=== PATIENT | male | born 1955 | race Caucasian/White ===

== ENCOUNTER 2023-05-05 08:15 | Emergency (ER) | payer MEDICARE, SELFPAY ==
--- NOTE | 2023-05-05 08:18 | W.ED.GENADLT ---
HPI - General Adult General: Chief complaint: General Medical Stated complaint: diabetic, bg issues Time Seen by Provider: 05/05/23 08:17 History of Present Illness: Mr. Amaro is a 68-year-old gentleman with history of type 2 diabetes on Humalog and Levemir presented to the emergency department for diabetic concern. He is not from this area and typically wears a Dexcom which helps him monitor his blood glucose normally. He forgot his Dexcom when coming to visit his mother and has had concerned about his blood sugar. He notes probably an episode of low blood sugar yesterday where he felt weak and fell in the bathroom. No head strike or loss of consciousness. No continued pain associated with that. He did buy a glucometer and is unsure of how this works. Denies other significant changes in health. No increased thirst, increased urination, increased hunger. No other specific changes in health, exacerbating, or alleviating factors identified. Review of Systems General: Reports: 10 or more systems reviewed and unremarkable except in HPI and below PFSH ED PFSH: Medical History Diabetes Physical Exam Const: COMMON NORMALS: alert GENERAL APPEARANCE: cooperative and well developed HENMT: COMMON NORMALS: normocephalic and atraumatic HEAD & SCALP: normocephalic and atraumatic Eye: COMMON NORMALS: conjunctivae normal CONJUNCTIVA: Yes conjunctivae normal SCLERA: sclerae normal Neck/C-Spine: COMMON NORMALS: supple GENERAL: Yes trachea midline Resp: COMMON NORMALS: normal respiratory effort EFFORT & INSPECTION: Yes able to speak in complete sentences Cardio: COMMON NORMALS: regular rate and regular rhythm RATE: regular rate RHYTHM: regular rhythm Extremity: GENERAL: Yes normal exam except as noted and No edema Neuro: COMMON NORMALS: moves all extremities SENSORIUM/ORIENTATION: Yes alert and No Orientation impaired Course Vital Signs: Vital signs: Vital Signs Pulse Rate 78 05/05/23 08:49 Respiratory Rate 16 05/05/23 08:49 Blood Pressure 142/71 05/05/23 08:49 Pulse Oximetry 98 05/05/23 08:49 Oxygen Delivery Me thod Room Air 05/05/23 08:23 MDM - General Adult Medical Decision Making 68-year-old gentleman presenting for diabetic concern. Clinical exam patient is well-appearing. He does not describe symptoms of metabolic stress related to diabetes. Jugps-he-zods glucose testing 221. We provided teaching instruction with regards to patient's new glucometer. He plans to have a Dexcom sent to him since he will be down here for a few weeks and should have that within the next day or 2. The results of ED evaluation were discussed with the patient including prescriptions and/or symptomatic cares (if applicable) including appropriate and responsible use, followup plan, and return precautions. The patient verbalized understanding and felt safe for discharge. Medical Records I reviewed the patient's medical records. Lab Data I reviewed the patient's lab results. Laboratory Results POC Glucose 221 mg/dL (70-110) H 05/05/23 08:28 Discharge Plan Discharge Patient Disposition: Home Clinical Impression: Diabetes Condition: Stable Prescriptions: No Action cefdinir 300 mg capsule 300 mg PO BID Qty: 14 0RF Discharge Orders: Discharge ED (Routine); Ordered 05/05/23 Ordered By: Edgar Hall Discharge Diet: Usual diet Discharge Activity: Resume usual activity Patient Instructions: How to Check your Blood Sugar (ED), Type 2 Diabetes Management for Adults (ED) Activity Restrictions/Additional Instructions: Thank you for visiting the emergency department. You were seen and evaluated for diabetic concerns. Given ED evaluation I do not believe that you require hospitalization or further testing in the emergency department. Please continue to check your blood glucose and take your medication. Return to the emergency department for uncontrolled blood sugars, significantly increased thirst hunger and urination, fevers, or anything that you are concerned about and feel needs emergency department evaluation. Coding Level of Care Code ED Airborne Electronics Analyst for Katya Pickard
[2023-05-05 08:23] VITALS: BP 164/90; PULSE 93; RESP 15; O2SAT 95; BMI 27.9
[2023-05-05 08:30] LABS: Glucose Point of Care 221 mg/dL (70-110)
--- NOTE | 2023-05-05 08:40 | PC.NURSE ---
Pt was shown how to use his glucomuter, he demostrated back to me how to use it and said he feels comortable using it now
[2023-05-05 08:49] VITALS: BP 142/71; PULSE 78; RESP 16; O2SAT 98
--- NOTE | 2023-05-23 15:12 | DCPLANNER ---
late entry - patient called due to no primary care physician - patient already established with a provider
== END 2023-05-05 08:50 | disposition home or self-care (01) ==
PROVIDERS: Emergency Provider Emergency Medicine
DX: E11.9 Type 2 diabetes mellitus without complications (principal)
CPT/HCPCS: 36416; 82962; 99285

== ENCOUNTER 2023-05-11 18:11 | Emergency (ER) | payer MEDICARE, SELFPAY ==
[2023-05-11 18:13] VITALS: BP 185/99; PULSE 112; RESP 18; TEMP 36.8; O2SAT 100; BMI 28.8
[2023-05-11 18:29] LABS: Glucose Point of Care 113 mg/dL (70-110)
[2023-05-11] MEDS: sodium chloride 0.9% 1,000 ML 999 ML IV (18:53)
[2023-05-11 18:56] VITALS: BP 170/91; PULSE 97; RESP 16; O2SAT 98
[2023-05-11 19:20] LABS: Basophils # 0.1 10^3/uL (0.0-0.1); Basophils % 0.5 %; Eosinophils % 0.3 %; Hematocrit 45.9 % (42.0-52.0); Hemoglobin 14.7 g/dL (11.7-16.6); Lymphocytes # 0.6 10^3/uL (0.8-4.8); Lymphocytes % 5.7 %; Mean Corpuscular Hemoglobin 29.2 pg (28.0-34.0); Mean Corpuscular Volume 91.3 fl (80-94); Mean Platelet Volume 10.3 fL (7.4-10.4); Monocytes # 0.5 10^3/uL (0.2-0.9); Monocytes % 5.1 %; Neutrophils # 8.73 10^3/uL (1.8-7.7); Nucleated Red Blood Cells % 0 %; Platelet Count 233 10^3/cmm (130-400); Red Blood Count 5.03 10^6/uL (4.1-5.3); Red Cell Distribution Width 13.7 % (12.1-15.1); White Blood Count 9.9 10^3/uL (4.0-10.0)
[2023-05-11 19:21] LABS: Alanine Aminotransferase 32 U/L (0-41); Albumin Level 4.5 g/dL (3.5-5.2); Alkaline Phosphatase 75 U/L (40-130); Aspartate Amino Transferase 38 U/L (0-40); Blood Urea Nitrogen 15 mg/dL (8-23); Calcium 9.7 mg/dL (8.5-10.5); Carbon Dioxide 22 mmol/L (22-29); Chloride 104 mmol/L (98-107); Creatine Phosphokinase 98 U/L (39-308); Globulin 3.6 g/dL (1.3-4.6); Glomerular Filtration Rate 50.7 mL/min (90-130); Glucose 109 mg/dL (65-115); Osmolality Calculated 293 mOsm/kg (285-295); Sodium 141 mmol/L (136-145); Total Bilirubin 0.3 mg/dL (0.15-1.2); Total Protein 8.1 g/dL (6.6-8.7)
[2023-05-11 19:29] LABS: Anion Gap 18.9 (5-19); Creatinine Clr Calc Pharmacy 57.1154; Potassium 3.9 mmol/L (3.5-5.1)
[2023-05-11 19:32] LABS: Add Urine Microscopic? YES; Bilirubin Urine 1+ (Negative); Blood Urine Trace (Negative); Glucose Urine UA Trace (Normal); Ketones Urine 1+ (Negative); Leukocyte Esterase Urine 2+ (Negative); Nitrate Urine Negative (Negative); Protein Urine 3+ (Negative); Specific Gravity, Urine 1.025 (1.005-1.030); Urine Appearance Cloudy (CLEAR); Urine Color Yellow (Yellow); Urobilinogen Urine Norm (Negative); pH Urine 5 (5-7)
[2023-05-11 19:34] LABS: Bacteria Urine 3+ /hpf; RBC Urine 0-4 /hpf (0-2); Squamous Epithelial Cell Urine 0-4 /hpf (0-5); WBC Urine TOO NUMEROUS TO CNT /hpf (0-5)
[2023-05-11 19:35] LABS: Hyaline Casts Urine 0-4 /lpf
[2023-05-11 19:36] LABS: Add Urine Culture? Yes
[2023-05-11] MEDS: cefTRIAXone 1,000 MG in sodium chloride 0.9% (plus) 50 ML 100 MG IV (20:12)
--- NOTE | 2023-05-11 20:13 | PC.NURSE ---
Patient dexcom blood sugar machine, blood sugar reading is 186
[2023-05-11 20:44] VITALS: BP 187/108; PULSE 91; RESP 16; O2SAT 100
--- NOTE | 2023-05-12 15:44 | W.ED.AMS ---
HPI - Altered Mental Status General: Chief Complaint: Altered Mental Status Stated Complaint: AMS; HYPOGLYCEMIC Time Seen by Provider: 05/11/23 18:24 Source: patient History of Present Illness: 68 year old male diabetic. He was found to have significant acute mental status change, with diaphoresis. His blood sugar was low on EMS arrival. He received oral glucose treatment, and is much improved on his arrival. He does not know how his blood sugar got low. He does state that he has no electricity, and it is quite warm where he is staying. No other recent illness. MD complaint: altered mental status, confusion and decreased responsiveness Onset (ago): minute(s) Timing confirmed by: other Severity: moderate Context: diabetes Associated symptoms: Reports other Treatments prior to arrival: glucose Review of Systems Const: Denies: fever(s) Eyes: Denies: change in vision ENMT: Denies: throat pain Card: Denies: chest pain or palpitations Resp: Denies: dyspnea, productive cough or non-productive cough GI: Reports: nausea; Denies: abdominal pain or vomiting Skin/Breast: Denies: rash [facility] ED PFSH: Medical History Diabetes Physical Exam Const: COMMON NORMALS: no acute distress GENERAL APPEARANCE: cooperative ORIENTATION/CONSCIOUSNESS: Yes awake, Yes oriented to person, Yes oriented to place and Yes oriented to time HENMT: COMMON NORMALS: normocephalic and atraumatic HEAD & SCALP: normocephalic and atraumatic FACE & SINUS: normal facial exam Eye: COMMON NORMALS: Equal, round and reactive pupils present and EOMs intact bilaterally PUPIL: Yes Equal, round and reactive pupils present Neck/C-Spine: GENERAL: Yes trachea midline Chest: CHEST: Yes Symmetrical chest wall rise Resp: COMMON NORMALS: normal respiratory effort, No retractions, No use of accessory muscles and clear to auscultation bilaterally AUSCULTATION: clear to auscultation bilaterally Cardio: COMMON NORMALS: regular rate and regular rhythm RATE: regular rate RHYTHM: regular rhythm GI: COMMON NORMALS: Normal to inspection, nondistended, normoactive bowel sounds present Extremity: COMMON NORMALS: normal to inspection Neuro: LIZ COMA SCALE: document GCS findings Liz coma scale eye opening: Spontaneous [place] coma scale verbal response: Orientated Liz coma scale motor response: Obey commands [place] coma scale total score: 15 SENSORIUM/ORIENTATION: Yes oriented to person, Yes oriented to place and Yes oriented to time Course Vital Signs: Vital signs: Vital Signs Temperature 98.2 F 05/11/23 18:13 Pulse Rate 91 05/11/23 20:44 Respiratory Rate 16 05/11/23 20:44 Blood Pressure 187/108 05/11/23 20:44 Pulse Oximetry 100 05/11/23 20:44 Oxygen Delivery Me thod Room Air 05/11/23 18:13 MDM - Altered Mental Status Medical Decision Making The patient has a Dexcom, showing maintenance of his blood sugar level during his stay in the emergency department. Laboratory shows a creatinine of 1.4. It is otherwise not terribly remarkable. He does have a significant urinary tract infection however. This is treated with Iv rocephin, and we will continue as an outpatient with cefdinir. He is encouraged to maintain oral hydration, stay in a cool environment, and continue to check his blood sugar often. Lab Data 05/11/23 18:50 05/11/23 18:50 Laboratory Results WBC 9.9 10^3/uL (4.0-10.0) 05/11/23 18:50 RBC 5.03 10^6/uL (4.1-5.3) 05/11/23 18:50 Hgb 14.7 g/dL (11.7-16.6) 05/11/23 18:50 Hct 45.9 % (42.0-52.0) 05/11/23 18:50 MCV 91.3 fl (80-94) 05/11/23 18:50 MCH 29.2 pg (28.0-34.0) 05/11/23 18:50 MCHC 32.0 g/dL (30.0-36.0) 05/11/23 18:50 RDW 13.7 % (12.1-15.1) 05/11/23 18:50 Plt Count 233 10^3/cmm (130-400) 05/11/23 18:50 MPV 10.3 fL (7.4-10.4) 05/11/23 18:50 Neut % (Auto) 88.0 % 05/11/23 18:50 Lymph % (Auto) 5.7 % 05/11/23 18:50 [place] % (Auto) 5.1 % 05/11/23 18:50 Eos % (Auto) 0.3 % 05/11/23 18:50 Baso % (Auto) 0.5 % 05/11/23 18:50 Neut # (Auto) 8.73 10^3/uL (1.8-7.7) H 05/11/23 18:50 Lymph # (Auto) 0.6 10^3/uL (0.8-4.8) L 05/11/23 18:50 [place] # (Auto) 0.5 10^3/uL (0.2-0.9) 05/11/23 18:50 Eos # (Auto) 0.0 10^3/uL (0.0-0.8) 05/11/23 18:50 Baso # (Auto) 0.1 10^3/uL (0.0-0.1) 05/11/23 18:50 Nucleated RBC % (auto) 0 % 05/11/23 18:50 Nucleated RBCs # 0.0 /100WBC 05/11/23 18:50 Sodium 141 mmol/L (136-145) 05/11/23 18:50 Potassium 3.9 mmol/L (3.5-5.1) 05/11/23 18:50 Chloride 104 mmol/L (98-107) 05/11/23 18:50 Carbon Dioxide 22 mmol/L (22-29) 05/11/23 18:50 Anion Gap 18.9 (5-19) 05/11/23 18:50 BUN 15 mg/dL (8-23) 05/11/23 18:50 Creatinine 1.4 mg/dL (0.7-1.2) H 05/11/23 18:50 GFR Calculation 50.7 mL/min (90-130) L 05/11/23 18:50 Glucose 109 mg/dL (65-115) 05/11/23 18:50 POC Glucose 113 mg/dL (70-110) H 05/11/23 18:25 Calculated Osmolality 293 mOsm/kg (285-295) 05/11/23 18:50 Calcium 9.7 mg/dL (8.5-10.5) 05/11/23 18:50 Total Bilirubin 0.3 mg/dL (0.15-1.2) 05/11/23 18:50 AST 38 U/L (0-40) 05/11/23 18:50 ALT 32 U/L (0-41) 05/11/23 18:50 Alkaline Phosphatase 75 U/L (40-130) 05/11/23 18:50 Creatine Kinase 98 U/L (39-308) 05/11/23 18:50 Total Protein 8.1 g/dL (6.6-8.7) 05/11/23 18:50 Albumin 4.5 g/dL (3.5-5.2) 05/11/23 18:50 Globulin 3.6 g/dL (1.3-4.6) 05/11/23 18:50 Urine Color Yellow (Yellow) 05/11/23 18:58 Urine Appearance Cloudy (CLEAR) A 05/11/23 18:58 Urine pH 5 (5-7) 05/11/23 18:58 Ur Specific [place] 1.025 (1.005-1.030) 05/11/23 18:58 Urine Protein 3+ (Negative) H 05/11/23 18:58 Urine Glucose (UA) Trace (Normal) H 05/11/23 18:58 Urine Ketones 1+ (Negative) H 05/11/23 18:58 Urine Blood Trace (Negative) H 05/11/23 18:58 Urine Nitrate Negative (Negative) 05/11/23 18:58 Urine Bilirubin 1+ (Negative) H 05/11/23 18:58 Urine Urobilinogen Norm mg/dL (Negative) 05/11/23 18:58 Ur Leukocyte Esterase 2+ (Negative) H 05/11/23 18:58 Urine RBC 0-4 /hpf (0-2) H 05/11/23 18:58 Urine WBC Too numerous to cnt /hpf (0-5) H 05/11/23 18:58 Ur Squamous Epith Cells 0-4 /hpf (0-5) H 05/11/23 18:58 Amorphous Sediment Not Reportable 05/11/23 18:58 Urine Bacteria 3+ /hpf (NONE) H 05/11/23 18:58 Hyaline Casts 0-4 /lpf H 05/11/23 18:58 Discharge Plan Discharge Patient Disposition: Home Clinical Impression: Hypoglycemia, Urinary tract infection Condition: Stable Prescriptions: New cefdinir 300 mg capsule 300 mg PO BID Qty: 14 0RF Discharge Orders: Discharge ED (Routine); Ordered 05/11/23 Ordered By: Brian Crump Patient Instructions: Urinary Tract Infection in Men (ED), Hypoglycemia in a Person with Diabetes (ED) Activity Restrictions/Additional Instructions: Keep close track of your blood sugar, checking it every 2-4 hours for the next 24 hours. Hydrate. Antibiotics as directed. Return for worsening mental status despite treatment, inability to keep your blood sugar up, weakness, other concerning symptoms. Staying in a cool environment for the next 48 hours would be optimal Coding Level of Care Code ED Hotel Concierge for Katya Pickard
== END 2023-05-11 20:45 | disposition home or self-care (01) ==
PROVIDERS: Emergency Provider Emergency Medicine
DX: E11.649 Type 2 diabetes mellitus with hypoglycemia without coma (principal); N39.0 Urinary tract infection, site not specified
CPT/HCPCS: 36415; 36416; 80053; 81001; 82550; 82962; 85025; 87077; 87086; 87186; 96374; 99284; J0696; J7030

== ENCOUNTER 2023-05-18 10:58 | Emergency (ER) | payer MEDICARE, SELFPAY ==
[2023-05-18 11:24] VITALS: BP 147/121; PULSE 76; RESP 12; TEMP 36.8; O2SAT 96
[2023-05-18 11:30] LABS: Add Urine Microscopic? NO; Charge for UA Resulting for Rev
[2023-05-18 11:51] LABS: Bilirubin Urine Neg (Negative); Blood Urine Neg (Negative); Glucose Urine UA 4+ (Normal); Ketones Urine Negative (Negative); Leukocyte Esterase Urine Negative (Negative); Nitrate Urine Negative (Negative); Protein Urine Neg (Negative); Urine Appearance Clear (CLEAR); Urine Color Yellow (Yellow); Urobilinogen Urine Norm (Negative); pH Urine 5 (5-7)
--- NOTE | 2023-05-18 12:01 | PC.NURSE ---
approved to hold off on all orders except Urinalysis do to PT just wanting to recheck urine and reports no symptoms
--- NOTE | 2023-05-18 12:17 | ED_ITS ---
HPI - General Adult General: Chief complaint: General Medical Stated complaint: N/V Time Seen by Provider: 05/18/23 11:09 Source: patient Mode of arrival: ambulatory History of Present Illness: 68-year-old male presents emergency room wanting to have a refill of cefdinir. He was seen recently and had a UTI had course of cefdinir. He is visiting in this area is concerned he may need to be on antibiotic longer he has noticed he is having little bit more urinary frequency. He is diabetic he has not taken his insulin today. He is otherwise asymptomatic no back pain no flank pain no fever sweats chills no chest or abdominal pain no dysuria urgency but does have some frequency. No hematuria. Onset (ago): day(s) Associated symptoms: Deny chest pain, confusion, cough, diaphoresis, decreased appetite, dyspnea, fevers/chills, headache(s), malaise, nausea, rash, palpitations, seizures, short of breath, syncope, vomiting or weakness Review of Systems Const: Denies: fever(s), chills, malaise or diaphoresis ENMT: Denies: throat pain, ear or mastoid pain, nasal discharge or nasal congestion Card: Denies: chest pain, palpitations or syncope Resp: Denies: dyspnea GI: Denies: abdominal pain, nausea or vomiting : Reports: urinary frequency; Denies: flank pain, dysuria or urinary urgency Skin/Breast: Denies: rash Neuro: Denies: headache(s) or confusion PFS ED PFSH: Medical History Diabetes Physical Exam Const: GENERAL APPEARANCE: cooperative and comfortable ORIENTATION/CONSCIOUSNESS: Yes awake, Yes oriented to person, Yes oriented to place and Yes oriented to time HENMT: COMMON NORMALS: normocephalic, atraumatic and hearing grossly normal bilaterally HEAD & SCALP: normocephalic and atraumatic Eye: OTHER: Bilateral subconjunctival hematomas left greater than right Resp: COMMON NORMALS: normal respiratory effort, No retractions, No use of accessory muscles and clear to auscultation bilaterally AUSCULTATION: clear to auscultation bilaterally Cardio: COMMON NORMALS: regular rate, regular rhythm and No murmurs present (Cardio) RATE: regular rate RHYTHM: regular rhythm : COMMON NORMALS: Yes no CVA tenderness BLADDER/KIDNEY EXAM: Yes no CVA tenderness Back/Pelvis: COMMON NORMALS: no CVA tenderness Extremity: COMMON NORMALS: normal to inspection, capillary refill normal, no clubbing, cyanosis or edema, no calf tenderness and no pedal edema Neuro: SENSORIUM/ORIENTATION: Yes oriented to person, Yes oriented to place and Yes oriented to time Skin: COMMON NORMALS: no rashes or lesions noted GENERAL SKIN EXAM: no rashes or lesions noted Course Vital Signs: Vital signs: Vital Signs Temperature 98.3 F 05/18/23 11:24 Pulse Rate 76 05/18/23 11:24 Respiratory Rate 12 05/18/23 11:24 Blood Pressure 147/121 05/18/23 11:24 Pulse Oximetry 96 05/18/23 11:24 Oxygen Delivery Me thod Room Air 05/18/23 11:24 MDM - General Adult Medical Decision Making Urinalysis shows 4+ glucose but otherwise no sign infection. Discussed with patient blood glucose is elevated needs monitor blood sugar closely. 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 Medical Records I reviewed the patient's medical records. Lab Data I reviewed the patient's lab results. Laboratory Results Urine Color Yellow (Yellow) 05/18/23 11:25 Urine Appearance Clear (CLEAR) 05/18/23 11:25 Urine pH 5 (5-7) 05/18/23 11:25 Ur Specific [place] 1.020 (1.005-1.030) 05/18/23 11:25 Urine Protein Neg (Negative) 05/18/23 11:25 Urine Glucose (UA) 4+ (Normal) H 05/18/23 11:25 Urine Ketones Negative (Negative) 05/18/23 11:25 Urine Blood Neg (Negative) 05/18/23 11:25 Urine Nitrate Negative (Negative) 05/18/23 11:25 Urine Bilirubin Neg (Negative) 05/18/23 11:25 Urine Urobilinogen Norm mg/dL (Negative) 05/18/23 11:25 Ur Leukocyte Esterase Negative (Negative) 05/18/23 11:25 Discharge Plan Discharge Patient Disposition: Home Clinical Impression: Diabetes, Subconjunctival hemorrhage Condition: Stable Prescriptions: No Action atorvastatin 40 mg tablet 40 mg PO BEDTIME metoprolol succinate 100 mg tablet extended release 24 hr 100 mg PO QAM clopidogrel 75 mg tablet 75 mg PO QAM prochlorperazine maleate 10 mg tablet 10 mg PO DAILY PRN (Reason: Nausea) aspirin 81 mg tablet,delayed release (DR/EC) 81 mg PO QAM spironolactone 25 mg tablet 25 mg PO QAM furosemide 20 mg tablet 20 mg PO QAM Levemir FlexPen 100 unit/mL (3 mL) insulin pen See Rx Instructions .ROUTE .COMPLEX Rx Instructions: sliding scale subcutaneously up to bid prn blood sugar oxycodone 10 mg tablet 10 mg PO BID PRN (Reason: Pain) cholecalciferol (vitamin D3) 50 mcg (2,000 unit) capsule 2,000 unit PO DAILY Ozempic 0.25 mg or 0.5 mg(2 mg/1.5 mL) pen injector 0.5 mg SUBCUT Q7D Humulin R U-500 (Conc) Kwikpen 500 unit/mL (3 mL) insulin pen See Rx Instructions .ROUTE .COMPLEX Rx Instructions: sliding scale subcutaneously tid prn blood sugar cefdinir 300 mg capsule 300 mg PO BID Qty: 14 0RF Discharge Orders: Discharge ED (Routine); Ordered 05/18/23 Ordered By: Gerard Summers Discharge Diet: Usual diet Discharge Activity: Increase activity as tolerated Patient Instructions: Opioid Safety, Pain Management Activity Restrictions/Additional Instructions: Urinary analysis in the emergency room was negative. Recommend he monitor blood sugars closely did have 4+ glucose in your urine but there is no sign infection. Subconjunctival hemorrhage should resolve spontaneously if worsens recheck Coding Level of Care Code ED Youth Pastor for Katya Pickard
== END 2023-05-18 12:03 | disposition home or self-care (01) ==
PROVIDERS: Emergency Provider Family Medicine
DX: E11.9 Type 2 diabetes mellitus without complications (principal); H11.33 Conjunctival hemorrhage, bilateral; Z79.82 Long term (current) use of aspirin; Z79.899 Other long term (current) drug therapy; Z79.4 Long term (current) use of insulin
CPT/HCPCS: 81003; 99284

== ENCOUNTER → 2024-01-09 14:34 | Outpatient (BNVA) | payer MEDICARE, SELFPAY | PROVIDERS: Visit Provider Podiatrist Foot & Ankle Surgery | DX: L03.90 Cellulitis, unspecified; L02.611 Cutaneous abscess of right foot; E11.621 Type 2 diabetes mellitus with foot ulcer; L97.512 Non-pressure chronic ulcer of other part of right foot with fat layer exposed; M86.8X7 Other osteomyelitis, ankle and foot; Z79.4 Long term (current) use of insulin; M86.9 Osteomyelitis, unspecified | CPT/HCPCS: 36415; 73630; 80053; 85025; 87070; 87075; 87077; 87186; 87205; 99204 ==

== ENCOUNTER → 2024-01-16 12:54 | Outpatient (BNVA) | payer MEDICARE, SELFPAY | PROVIDERS: Visit Provider Podiatrist Foot & Ankle Surgery | DX: L02.611 Cutaneous abscess of right foot; E11.69 Type 2 diabetes mellitus with other specified complication; L03.115 Cellulitis of right lower limb; M86.8X7 Other osteomyelitis, ankle and foot | CPT/HCPCS: 99213 ==

== ENCOUNTER 2024-02-19 12:43 | Outpatient (CLI) | payer MEDICARE, SELFPAY ==
--- NOTE | 2024-02-19 13:00 | MR_ITS ---
WS: [id number] MRI RIGHT FOOT WITHOUT CONTRAST. COMPARISON: Radiograph 01/09/2024 Multiplanar, multisequence imaging is performed without contrast. Status post resection of the first metatarsal and phalanx. Marrow edema in the distal second metadata tarsal with extension into the metatarsal head. There is l oss of the normal overlying cortex. There is extensive soft tissue edema and cellulitis within the so ft tissues and muscles of the RIGHT foot surrounding the second metatarsal. No abscess identified. There is mild deformity of the midfoot. Hammertoe deformities. This study was performed without IV co ntrast. IMPRESSION: 1. Quality of this examination is compromised by motion and patient's condition. 2. Status post resection of the first metatarsal and phalanx. 3. Marrow edema in the distal second metatarsal with extension to involve the metatarsal head. Marro w edema can be seen with osteomyelitis. Study was performed without IV contrast. 4. There is diffuse soft tissue edema surrounding the second metatarsal and extending greatest along the plantar surface of the foot to surround the second metatarsal head. Cellulitis is suspected.
== END 2024-02-19 12:44 | disposition home or self-care (01) ==
LOC: RAD 12:43
PROVIDERS: PCP Family Medicine; Visit Provider Podiatrist Foot & Ankle Surgery
DX: M86.9 Osteomyelitis, unspecified (principal)
CPT/HCPCS: 73718

== ENCOUNTER 2024-02-25 10:38 | Emergency (ER) | payer MEDICARE, SELFPAY ==
[2024-02-25 10:39] VITALS: BMI 25.7
--- NOTE | 2024-02-25 10:46 | W.ED.GENADLT ---
HPI - General Adult General: Chief complaint: General Medical Stated complaint: High BS Time Seen by Provider: 02/25/24 10:40 History of Present Illness: 68-year-old man with a history of diabetes, hypertension, hyperlipidemia, coronary artery disease who presents to the emergency room with hyperglycemia. He says he felt a little bit sleepy this morning but otherwise has felt fine. He says sugars are running fine until last night. He got a new Dexcom meter and thought maybe this was not working right but they checked his sugar at the assisted living and it was over 500. No chest pain. No dysuria. No altered mental status. No focal motor deficits. No nausea or vomiting. Review of Systems Narrative: Constitutional symptoms: Negative except as documented in HPI. Skin symptoms: Negative except as documented in HPI. Eye symptoms: Negative except as documented in HPI. ENMT symptoms: Negative except as documented in HPI. Respiratory symptoms: Negative except as documented in HPI. Cardiovascular symptoms: Negative except as documented in HPI. Gastrointestinal symptoms: Negative except as documented in HPI. Genitourinary symptoms: Negative except as documented in HPI. Musculoskeletal symptoms: Negative except as documented in HPI. Neurologic symptoms: Negative except as documented in HPI. Psychiatric symptoms: Negative except as documented in HPI. Endocrine symptoms: Negative except as documented in HPI. [facility] ED PFSH: Medical History Diabetes Physical Exam Narrative: EXAM NARRATIVE: General: Alert, no acute distress. Skin: Warm, dry. Head: Normocephalic, atraumatic. Neck: Supple, trachea midline. Eye: Extraocular movements are intact. Ears, nose, mouth and throat: mucosa moist. Cardiovascular: Regular, Normal peripheral perfusion. Respiratory: Lungs are clear to auscultation, respirations are non-labored, breath sounds are equal, Symmetrical chest wall expansion. Gastrointestinal: Soft, Nontender, Non distended, Normal bowel sounds. Musculoskeletal: Normal ROM, no deformity. Neurological: Alert and oriented, No focal neurological deficit observed. Psychiatric: Cooperative, appropriate mood & affect. Course Vital Signs: Vital signs: Vital Signs Temperature 98.5 F 02/25/24 10:50 Pulse Rate 85 02/25/24 10:50 Respiratory Rate 16 02/25/24 10:50 Blood Pressure 130/84 02/25/24 10:50 Pulse Oximetry 98 02/25/24 10:50 Oxygen Delivery Me thod Room Air 02/25/24 10:50 MDM - General Adult Medical Decision Making Medical decision making: Differential diagnosis including but not limited to and based on the above HPI, review of systems and physical exam: Primary concern would be for an underlying infection causing hyperglycemia. UA. Also would have concern for renal failure. Dehydration. Orders placed to evaluate differential diagnosis based on the above differential, HPI and physical exam Lab Review: Laboratory results were reviewed and interpreted by myself the emergency room physician. Lab work is fairly unremarkable other than his elevated glucose at 456 initially. Repeat after fluids and insulin is down to about 200. BUN and creatinine are 37 and 1.5. Urinalysis is negative. Reexamination: Patient remained stable. No altered mental status. No increased work of breathing. Lab Data 02/25/24 11:11 02/25/24 11:11 Laboratory Results WBC 7.97 10^3/uL (3.29-11.43) 02/25/24 11:11 RBC 5.66 10^6/uL (3.85-5.65) H 02/25/24 11:11 Hgb 16.10 g/dL (11.27-16.99) 02/25/24 11:11 Hct 48.0 % (37-53) 02/25/24 11:11 MCV 84.8 fl (82-101) 02/25/24 11:11 MCH 28.4 pg (27-33) 02/25/24 11:11 MCHC 33.5 g/dL (30-55) 02/25/24 11:11 RDW 13.3 % (12.1-15.1) 02/25/24 11:11 Plt Count 201 10^3/cmm (157-399) 02/25/24 11:11 MPV 11.0 fL (7.4-10.4) H 02/25/24 11:11 Neut % (Auto) 78.0 % 02/25/24 11:11 Lymph % (Auto) 9.7 % 02/25/24 11:11 [place] % (Auto) 9.3 % 02/25/24 11:11 Eos % (Auto) 1.9 % 02/25/24 11:11 Baso % (Auto) 0.8 % 02/25/24 11:11 Neut # (Auto) 6.23 10^3/uL (1.8-7.7) 02/25/24 11:11 Lymph # (Auto) 0.8 10^3/uL (0.8-4.8) 02/25/24 11:11 [place] # (Auto) 0.7 10^3/uL (0.2-0.9) 02/25/24 11:11 Eos # (Auto) 0.2 10^3/uL (0.0-0.8) 02/25/24 11:11 Baso # (Auto) 0.1 10^3/uL (0.0-0.1) 02/25/24 11:11 Nucleated RBC % (auto) 0 % 02/25/24 11:11 Nucleated RBCs # 0.0 /100WBC 02/25/24 11:11 Sodium 131 mmol/L (136-145) L 02/25/24 11:11 Potassium 4.7 mmol/L (3.5-5.1) 02/25/24 11:11 Chloride 96 mmol/L (98-107) L 02/25/24 11:11 Carbon Dioxide 22 mmol/L (22-29) 02/25/24 11:11 Anion Gap 17.7 (5-19) 02/25/24 11:11 BUN 37 mg/dL (8-23) H 02/25/24 11:11 Creatinine 1.5 mg/dL (0.7-1.2) H 02/25/24 11:11 GFR Calculation 46.8 mL/min (90-130) L 02/25/24 11:11 Glucose 456 mg/dL (65-115) H 02/25/24 11:11 POC Glucose 194 mg/dL (70-110) H 02/25/24 12:14 Calculated Osmolality 301 mOsm/kg (285-295) H 02/25/24 11:11 Calcium 10.7 mg/dL (8.5-10.5) H 02/25/24 11:11 Total Bilirubin 0.4 mg/dL (0.15-1.2) 02/25/24 11:11 AST 14 U/L (0-40) 02/25/24 11:11 ALT 26 U/L (0-41) 02/25/24 11:11 Alkaline Phosphatase 111 U/L (40-130) 02/25/24 11:11 Total Protein 8.3 g/dL (6.6-8.7) 02/25/24 11:11 Albumin 4.4 g/dL (3.5-5.2) 02/25/24 11:11 Globulin 3.9 g/dL (1.3-4.6) 02/25/24 11:11 Urine Color Yellow (Yellow) 02/25/24 11:50 Urine Appearance Clear (CLEAR) 02/25/24 11:50 Urine pH 5 (5-7) 02/25/24 11:50 Ur Specific [place] 1.015 (1.005-1.030) 02/25/24 11:50 Urine Protein Neg (Negative) 02/25/24 11:50 Urine Glucose (UA) 4+ (Normal) H 02/25/24 11:50 Urine Ketones Negative (Negative) 02/25/24 11:50 Urine Blood Neg (Negative) 02/25/24 11:50 Urine Nitrate Negative (Negative) 02/25/24 11:50 Urine Bilirubin Neg (Negative) 02/25/24 11:50 Urine Urobilinogen Norm mg/dL (Negative) 02/25/24 11:50 Ur Leukocyte Esterase Negative (Negative) 02/25/24 11:50 Urine RBC None /hpf (0-2) 02/25/24 11:50 Urine WBC None /hpf (0-5) 02/25/24 11:50 Ur Squamous Epith Cells None /hpf (0-5) 02/25/24 11:50 Amorphous Sediment Not Reportable 02/25/24 11:50 Urine Bacteria None /hpf (NONE) 02/25/24 11:50 Urine Mucus None /hpf 02/25/24 11:50 Serum Ketones Negative (Negative) 02/25/24 11:11 All radiology interpretation(s) finalized by discharge Other Data Assessment and plan: Hyperglycemia -1 L normal saline bolus and 10 units of insulin with improvement in his sugars. - Discharged home - Discussed findings and plan with patient. Answered any questions. - All laboratory values were reviewed and interpreted personally by myself, the ER physician - All imaging was reviewed and interpreted personally by myself, the ER physician. - Evaluation and treatment of this problem were appropriate in the emergency setting Discharge Plan Discharge Patient Disposition: Home Clinical Impression: Hyperglycemia Condition: Stable Prescriptions: No Action (DME) diabetic shoes with 3 inserts See Rx Instructions .Route .MEDSUPPLY Qty: 1 0RF Rx Instructions: As directed to the shoe kaitlynn oxycodone 10 mg tablet 10 mg PO Q8H PRN (Reason: Pain) nifedipine 30 mg tablet extended release 24hr 30 mg PO BEDTIME acetaminophen 325 mg Tablet 650 mg PO QID PRN (Reason: Pain) Senokot-S 8.6-50 mg Tablet 1 tab-cap PO Q12H PRN (Reason: Constipation) Milk of Magnesia 400 mg/5 mL Suspension 30 ml PO DAILY PRN (Reason: Constipation) Calcium 500 500 mg calcium (1,250 mg) Tablet 1,000 mg PO Q4H PRN (Reason: Dyspepsia) bisacodyl 10 mg Suppository 10 mg RI DAILY PRN (Reason: Constipation) ferrous sulfate 325 mg (65 mg iron) Tablet 325 mg PO DAILY Vitamin C 500 mg Tablet,Chewable 500 mg PO DAILY omeprazole 20 mg Capsule,Delayed Release(Dr/Ec) 20 mg PO DAILY lisinopril 5 mg tablet 5 mg PO BEDTIME nystatin 100,000 unit/gram powder 1 applic TOPICAL BID insulin aspart U-100 100 unit/mL (3 mL) insulin pen See Rx Instructions .ROUTE .COMPLEX Rx Instructions: GIVE 15 UNITS BY SUBCUTANEOUS INJECTION THREE TIMES DAILY. OLD IF BS IS BELOW 140. Systane (PF) 0.4-0.3 % Dropperette 1 drp OPHTHALMIC (EYE) DAILY PRN (Reason: Dry Eyes) Lantus Solostar U-100 Insulin 100 unit/mL (3 mL) insulin pen 60 unit SUBCUT BEDTIME Eucerin Cream 1 applic TOPICAL DAILY PRN (Reason: IRRITATION) Floranex 1 million cell Tablet 1 tab PO TID Farxiga 10 mg tablet 10 mg PO DAILY Discharge Orders: Discharge ED (Routine); Ordered 02/25/24 Ordered By: Criss Ibrahim Referrals: Terry Reyes MD [Primary Care Provider] - (You have been screened and evaluated and felt safe for discharge. Health conditions do change or evolve sometimes and as such it is important that you follow up with your Primary Doctor to be re checked, 3-5 days is a general good time frame for follow up. You are always welcome to return to the ED for re assessment if your symptoms are worsening or you have new concerns) Discharge Diet: Usual diet Discharge Activity: Resume usual activity Patient Instructions: Opioid Safety, Pain Management Coding Level of Care Code ED Acetylene Cylinder Packing Mixer for Katya Pickard
[2024-02-25 10:50] VITALS: BP 130/84; PULSE 85; RESP 16; TEMP 36.9; O2SAT 98
--- NOTE | 2024-02-25 10:58 | PC.PHAR ---
PT IS FROM [facility] 02/25/24
[2024-02-25] MEDS: sodium chloride 0.9% 1,000 ML 999 ML IV (11:18)
[2024-02-25] MEDS: insulin regular-human 100 units/1 mL 10 UNIT IVP (11:18)
[2024-02-25 11:23] LABS: Glucose Point of Care 407 mg/dL (70-110)
[2024-02-25 11:25] LABS: Basophils # 0.1 10^3/uL (0.0-0.1); Basophils % 0.8 %; Eosinophils # 0.2 10^3/uL (0.0-0.8); Eosinophils % 1.9 %; Lymphocytes # 0.8 10^3/uL (0.8-4.8); Lymphocytes % 9.7 %; Mean Corpuscular HGB Conc 33.5 g/dL (30-55); Mean Corpuscular Hemoglobin 28.4 pg (27-33); Mean Corpuscular Volume 84.8 fl (82-101); Monocytes # 0.7 10^3/uL (0.2-0.9); Monocytes % 9.3 %; Neutrophils # 6.23 10^3/uL (1.8-7.7); Nucleated Red Blood Cells % 0 %; Platelet Count 201 10^3/cmm (157-399); Red Blood Count 5.66 10^6/uL (3.85-5.65); Red Cell Distribution Width 13.3 % (12.1-15.1); White Blood Count 7.97 10^3/uL (3.29-11.43)
--- NOTE | 2024-02-25 11:27 | PC.PHAR ---
Addendum entered by Michelle Gutierrez 02/25/24 11:33: ALSO REMOVED ARE: ASPIRIN 81MG, ATORVASTATIN 40MG, AND VITAMIN D3. Original Note: SEVERAL MEDICATIONS CHANGED PER [facility] LIST. THE FOLLOWING HAVE BEEN REMOVED: CLOPIDOGREL 75 MG, FUROSEMIDE 20MG, UHMULIN R U-500, LEVEMIR FLEX PEN, METOPROLOL SUCCINATE 100MG, OZEMPIC 0.25MG, PROCHLORPERAZINE MALEATE 10MG, AND SPIRONOLACTONE 25MG. 02/25/24
[2024-02-25 11:37] LABS: Alanine Aminotransferase 26 U/L (0-41); Albumin Level 4.4 g/dL (3.5-5.2); Alkaline Phosphatase 111 U/L (40-130); Anion Gap 17.7 (5-19); Aspartate Amino Transferase 14 U/L (0-40); Blood Urea Nitrogen 37 mg/dL (8-23); Calcium 10.7 mg/dL (8.5-10.5); Carbon Dioxide 22 mmol/L (22-29); Chloride 96 mmol/L (98-107); Creatinine Clr Calc Pharmacy 50.6969; Globulin 3.9 g/dL (1.3-4.6); Glomerular Filtration Rate 46.8 mL/min (90-130); Glucose 456 mg/dL (65-115); Osmolality Calculated 301 mOsm/kg (285-295); Potassium 4.7 mmol/L (3.5-5.1); Sodium 131 mmol/L (136-145); Total Bilirubin 0.4 mg/dL (0.15-1.2); Total Protein 8.3 g/dL (6.6-8.7)
[2024-02-25 11:38] LABS: Ketone (Acetest) Serum Negative (Negative)
[2024-02-25 12:15] VITALS: BP 161/85; PULSE 86; RESP 16; O2SAT 96
[2024-02-25 12:17] LABS: Glucose Point of Care 194 mg/dL (70-110)
[2024-02-25 12:40] LABS: Bilirubin Urine Neg (Negative); Blood Urine Neg (Negative); Glucose Urine UA 4+ (Normal); Ketones Urine Negative (Negative); Leukocyte Esterase Urine Negative (Negative); Nitrate Urine Negative (Negative); Protein Urine Neg (Negative); Specific Gravity, Urine 1.015 (1.005-1.030); Urine Appearance Clear (CLEAR); Urine Color Yellow (Yellow); Urobilinogen Urine Norm (Negative); pH Urine 5 (5-7)
[2024-02-25 12:43] LABS: Add Urine Culture? No
[2024-02-25 13:14] VITALS: BP 163/75; PULSE 84; RESP 15; O2SAT 94
== END 2024-02-25 13:15 | disposition home or self-care (01) ==
PROVIDERS: Emergency Provider Emergency Medicine; PCP Family Medicine
DX: E11.65 Type 2 diabetes mellitus with hyperglycemia (principal); Z79.4 Long term (current) use of insulin
CPT/HCPCS: 36416; 80053; 81001; 82009; 82962; 85025; 96361; 96374; 99284; J1815; J7030

== ENCOUNTER → 2024-03-16 14:34 | Outpatient (BNVA) | payer MEDICARE, SELFPAY | PROVIDERS: PCP Family Medicine; Visit Provider Podiatrist Foot & Ankle Surgery | DX: L84 Corns and callosities (principal); Z89.421 Acquired absence of other right toe(s); G62.9 Polyneuropathy, unspecified; Z86.31 Personal history of diabetic foot ulcer; E11.42 Type 2 diabetes mellitus with diabetic polyneuropathy; Z79.4 Long term (current) use of insulin | CPT/HCPCS: 99213 ==

== ENCOUNTER → 2024-05-18 14:02 | Outpatient (BNVA) | payer MEDICARE, MEDICAID, SELFPAY | PROVIDERS: PCP Family Medicine; Visit Provider Podiatrist Foot & Ankle Surgery | DX: L84 Corns and callosities (principal); Z89.421 Acquired absence of other right toe(s); G62.9 Polyneuropathy, unspecified; Z86.31 Personal history of diabetic foot ulcer; E11.42 Type 2 diabetes mellitus with diabetic polyneuropathy; Z79.4 Long term (current) use of insulin | CPT/HCPCS: 11055 ==

== ENCOUNTER 2024-05-30 08:54 | Observation (INO) | payer MEDICARE, SELFPAY ==
[2024-05-30] VITALS (14 sets, daily range): BP systolic 136–164; BP diastolic 81–105; PULSE 93–111; RESP 16–24; TEMP 36.8–36.9; O2SAT 90–96; BMI 29.8
--- NOTE | 2024-05-30 09:01 | XRR_ITS ---
PROCEDURE INFORMATION: Exam: XR Right Ribs with PA Chest Exam date and time: 05/30/2024 9:10 AM Age: 69 years old Clinical indication: Injury or trauma; Rib area; Blunt trauma (contusions or hematomas); Patient HX: PT arrives from half-way with C/O right side rib pain after fall that occurred about 5 days ago. PT states pain worsened this am. TECHNIQUE: Imaging protocol: Radiologic exam of the right ribs with PA chest. Views: 3 views COMPARISON: No relevant prior studies available. FINDINGS: Lungs: There are low lung volumes with linear atelectasis and/or scarring at the lung bases. No focal consolidation is appreciated. Pleural spaces: Unremarkable. No pleural effusion. No pneumothorax. Heart/Mediastinum: The heart is enlarged. Bones/joints: No definite rib fracture is identified on the right. XR/XR ribs RT mn 3V w [id number] IMPRESSION: 1. Low lung volumes with linear atelectasis or scarring at the lung bases. 2. Mild cardiomegaly.
--- NOTE | 2024-05-30 09:23 | ED_ITS ---
HPI - Fall 2 General: Chief Complaint: Fall Stated Complaint: RIGHT RIB PAIN S/P FALL Time Seen by Provider: 05/30/24 08:58 Source: patient Mode of arrival: ambulatory History of Present Illness: 69-year-old male reports right-sided rib pain at the anterior axillary line lower ribs. Began after a fall that occurred 5 days ago. He was cleaning self- induced elbow fell hit that area has had progressively worsening pain since then worse with palpation worse with deep breath. He denies any hemoptysis. No dysuria urgency or frequency no abdominal pain. No other injuries he has been ambulatory since the fall. complaint: fall Onset (ago): minute(s) Fall from: standing Place fall occurred: [facility] Associated symptoms-after fall: Reports chest pain (Right anterior chest wall pain); Denies abdominal pain or neck pain Review of Systems 2 Const: Denies: fever(s) or chills Card: Reports: chest pain (Right anterior chest wall pain) Resp: Reports: dyspnea GI: Denies: abdominal pain : Denies: dysuria, urinary frequency or urinary urgency Musc: Denies: neck pain or back pain Skin/Breast: Denies: rash PFSH ED 2 PFSH: Medical History (Updated 05/30/24 @ 16:21 by Gerard Summers DO) Hypertension History of diabetic ulcer of foot Osteomyelitis Diabetes Surgical History (Updated 05/30/24 @ 15:44 by Cornelius Hughes MD) Status post amputation of toe of right foot Social History Smoking and tobacco/nicotine status: never used tobacco/nicotine Physical Exam 2 Const: GENERAL APPEARANCE: cooperative and comfortable O RIENTATION/CONSCIOUSNESS: Yes awake HENMT: COMMON NORMALS: normocephalic, atraumatic and hearing grossly normal bilaterally HEAD & SCALP: normocephalic and atraumatic Chest: OTHER: Pain with palpation of the lower ribs at the anterior axillary line pain is reproducible no ecchymosis no subcutaneous crepitus no obvious deformity no palpable crepitus no rash. Resp: COMMON NORMALS: normal respiratory effort, No retractions, No use of accessory muscles and clear to auscultation bilaterally AUSCULTATION: clear to auscultation bilaterally Cardio: COMMON NORMALS: regular rate, regular rhythm and No murmurs present (Cardio) RATE: regular rate RHYTHM: regular rhythm GI: COMMON NORMALS: Soft to palpation and No hepatosplenomegaly present A USCULTATION: Yes normoactive bowel sounds PALPATION: Yes Soft to palpation, No Tenderness to palpation present (GI), No Guarding due to palpation present (GI) and Yes No hepatosplenomegaly present Extremity: COMMON NORMALS: normal to inspection, capillary refill normal, no clubbing, cyanosis or edema, no calf tenderness and no pedal edema Skin: COMMON NORMALS: no rashes or lesions noted GENERAL SKIN EXAM: no rashes or lesions noted Course 2 Vital Signs: Vital signs: Vital Signs Temperature 98.3 F 05/30/24 16:19 Pulse Rate 111 H 05/30/24 16:19 Respiratory Rate 19 H 05/30/24 16:19 Blood Pressure 136/88 05/30/24 16:19 Pulse Oximetry 90 05/30/24 16:19 Oxygen Delivery Me thod Room Air 05/30/24 16:19 MDM - Fall Medical Decision Making Patient has fifth and sixth rib fractures. For which initially we had planned to treat him as an outpatient however he has a mild metabolic acidosis with an anion gap of 21.9 he had hyperkalemia and a mild acute kidney injury. We gave him IV fluids he had slight improvement of his potassium but his kidney function actually slightly worsened CT of his abdomen he has a large amount of retained urine Weiss was placed and drained well. He had no stones or signs of infection will admit for his acute kidney injury and hyperkalemia placed on observation discussed with hospitalist orders written Medical Records I reviewed the patient's medical records. Lab Data I reviewed the patient's lab results. 05/30/24 09:36 05/30/24 12:25 Radiology Impressions Ribs X-Ray 05/30/24 09:01 IMPRESSION: 1. Low lung volumes with linear atelectasis or scarring at the lung bases. 2. Mild cardiomegaly. Abdomen/Pelvis CT 05/30/24 10:19 IMPRESSION: 1. Partially imaged right 5th and 6 rib fractures. 2. Trace right pleural effusion with linear scarring and/or atelectasis favored at the lung bases. A component of pneumonia at the lung bases cannot be reasonably excluded. 3. Fatty infiltration of the liver. 4. Small to moderate-sized hiatal hernia. 5. Abnormal density within the subcutaneous tissues of the lower anterior abdominal wall. Etiology is uncertain. Recommend clinical correlation. Laboratory Results WBC 11.82 10^3/uL (3.29-11.43) H 05/30/24 09:36 RBC 5.72 10^6/uL (3.85-5.65) H 05/30/24 09:36 Hgb 16.90 g/dL (11.27-16.99) 05/30/24 09:36 Hct 51.4 % (37-53) 05/30/24 09:36 MCV 89.9 fl (82-101) 05/30/24 09:36 MCH 29.5 pg (27-33) 05/30/24 09:36 MCHC 32.9 g/dL (30-55) 05/30/24 09:36 RDW 13.2 % (12.1-15.1) 05/30/24 09:36 Plt Count 215 10^3/cmm (157-399) 05/30/24 09:36 MPV 10.7 fL (7.4-10.4) H 05/30/24 09:36 Neut % (Auto) 87.4 % 05/30/24 09:36 Lymph % (Auto) 5.0 % 05/30/24 09:36 [place] % (Auto) 6.3 % 05/30/24 09:36 Eos % (Auto) 0.4 % 05/30/24 09:36 Baso % (Auto) 0.5 % 05/30/24 09:36 Neut # (Auto) 10.33 10^3/uL (1.8-7.7) H 05/30/24 09:36 Lymph # (Auto) 0.6 10^3/uL (0.8-4.8) L 05/30/24 09:36 [place] # (Auto) 0.7 10^3/uL (0.2-0.9) 05/30/24 09:36 Eos # (Auto) 0.1 10^3/uL (0.0-0.8) 05/30/24 09:36 Baso # (Auto) 0.1 10^3/uL (0.0-0.1) 05/30/24 09:36 Nucleated RBC % (auto) 0 % 05/30/24 09:36 Nucleated RBCs # 0.0 /100WBC 05/30/24 09:36 Sodium 135 mmol/L (136-145) L 05/30/24 12:25 Potassium 5.5 mmol/L (3.5-5.1) H 05/30/24 12:25 Chloride 98 mmol/L (98-107) 05/30/24 12:25 Carbon Dioxide 22 mmol/L (22-29) 05/30/24 12:25 Anion Gap 20.5 (5-19) H 05/30/24 12:25 BUN 34 mg/dL (8-23) H 05/30/24 12:25 Creatinine 1.6 mg/dL (0.7-1.2) H 05/30/24 12:25 GFR Calculation 43.3 mL/min (90-130) L 05/30/24 12:25 Glucose 330 mg/dL (65-115) H 05/30/24 12:25 Calculated Osmolality 300 mOsm/kg (285-295) H 05/30/24 12:25 Calcium 11.3 mg/dL (8.5-10.5) H 05/30/24 12:25 Total Bilirubin 0.7 mg/dL (0.15-1.2) 05/30/24 09:36 AST 15 U/L (0-40) 05/30/24 09:36 ALT 23 U/L (0-41) 05/30/24 09:36 Alkaline Phosphatase 74 U/L (40-130) 05/30/24 09:36 Total Protein 8.4 g/dL (6.6-8.7) 05/30/24 09:36 Albumin 4.3 g/dL (3.5-5.2) 05/30/24 09:36 Globulin 4.1 g/dL (1.3-4.6) 05/30/24 09:36 Lipase 5 U/L (13-60) L 05/30/24 09:36 Procalcitonin 0.14 ng/mL (0-0.5) 05/30/24 12:25 Urine Color Yellow (Yellow) 05/30/24 12:00 Urine Appearance Clear (CLEAR) 05/30/24 12:00 Urine pH 5 (5-7) 05/30/24 12:00 Ur Specific [place] 1.015 (1.005-1.030) 05/30/24 12:00 Urine Protein Neg (Negative) 05/30/24 12:00 Urine Glucose (UA) 4+ (Normal) H 05/30/24 12:00 Urine Ketones 1+ (Negative) H 05/30/24 12:00 Urine Blood Neg (Negative) 05/30/24 12:00 Urine Nitrate Negative (Negative) 05/30/24 12:00 Urine Bilirubin Neg (Negative) 05/30/24 12:00 Urine Urobilinogen Norm mg/dL (Negative) 05/30/24 12:00 Ur Leukocyte Esterase Negative (Negative) 05/30/24 12:00 Ur Random Sodium 31 mmol/L 05/30/24 12:00 Ur Random Potassium 40 mmol/L 05/30/24 12:00 Ur Random Chloride 24 mmol/L 05/30/24 12:00 Urine Creatinine 90 mg/dL (39-259) 05/30/24 12:00 All radiology interpretation(s) finalized by discharge Discharge Plan Discharge Patient Disposition: Admitted As Inpatient Admit Provider: Cornelius Hughes Clinical Impression: Urinary retention, Acute kidney injury superimposed on CKD, Rib fracture, Hyperkalemia Condition: Stable Coding Level of Care Code ED Silk Snapper for Katya Pickard
[2024-05-30 09:50] LABS: Basophils # 0.1 10^3/uL (0.0-0.1); Basophils % 0.5 %; Eosinophils # 0.1 10^3/uL (0.0-0.8); Eosinophils % 0.4 %; Hematocrit 51.4 % (37-53); Lymphocytes # 0.6 10^3/uL (0.8-4.8); Mean Corpuscular HGB Conc 32.9 g/dL (30-55); Mean Corpuscular Hemoglobin 29.5 pg (27-33); Mean Corpuscular Volume 89.9 fl (82-101); Mean Platelet Volume 10.7 fL (7.4-10.4); Monocytes # 0.7 10^3/uL (0.2-0.9); Monocytes % 6.3 %; Neutrophils # 10.33 10^3/uL (1.8-7.7); Neutrophils % 87.4 %; Nucleated Red Blood Cells % 0 %; Platelet Count 215 10^3/cmm (157-399); Red Blood Count 5.72 10^6/uL (3.85-5.65); Red Cell Distribution Width 13.2 % (12.1-15.1); White Blood Count 11.82 10^3/uL (3.29-11.43)
[2024-05-30] MEDS: ondansetron 2 mg/ML SDV 2 mL 4 MG IVP (10:01)
[2024-05-30] MEDS: morphine 4 mg/mL SDV 1 mL IVP (10:01)
[2024-05-30 10:08] LABS: Alanine Aminotransferase 23 U/L (0-41); Albumin Level 4.3 g/dL (3.5-5.2); Alkaline Phosphatase 74 U/L (40-130); Anion Gap 21.9 (5-19); Aspartate Amino Transferase 15 U/L (0-40); Blood Urea Nitrogen 32 mg/dL (8-23); Calcium 10.1 mg/dL (8.5-10.5); Carbon Dioxide 22 mmol/L (22-29); Chloride 97 mmol/L (98-107); Creatinine Clr Calc Pharmacy 52.5873; Globulin 4.1 g/dL (1.3-4.6); Glomerular Filtration Rate 46.7 mL/min (90-130); Glucose 279 mg/dL (65-115); Lipase 5 U/L (13-60); Osmolality Calculated 297 mOsm/kg (285-295); Potassium 5.9 mmol/L (3.5-5.1); Sodium 135 mmol/L (136-145); Total Bilirubin 0.7 mg/dL (0.15-1.2); Total Protein 8.4 g/dL (6.6-8.7)
--- NOTE | 2024-05-30 10:19 | CTR_ITS ---
PROCEDURE INFORMATION: Exam: CT Abdomen And Pelvis Without Contrast Exam date and time: 05/30/2024 10:27 AM Age: 69 years old Clinical indication: Abdominal pain; Flank; Right; Additional info: Flank pain TECHNIQUE: Imaging protocol: Computed tomography of the abdomen and pelvis without contrast. Radiation optimization: All CT scans at this facility use at least one of these dose optimization techniques: automated exposure control; mA and/or kV adjustment per patient size (includes targeted exams where dose is matched to clinical indication); or iterative reconstruction. COMPARISON: CR (CHEST, ) 05/30/2024 9:10 AM RADIATION DOSE METRICS: Total DLP (mGy-cm): 825.66 FINDINGS: Lungs: There are bibasilar opacities which are relatively linear in orientation and may reflect atelectasis or scarring. A component of pneumonia cannot be reasonably excluded. There is trace right pleural effusion. No pneumothorax is identified. Diaphragm: There is a small to moderate-sized hiatal hernia. Liver: There is fatty infiltration of the liver. The liver otherwise has a normal noncontrast appearance. Gallbladder and biliary ducts: Normal. No calcified stones. No ductal dilation. Pancreas: There is fatty replacement of the pancreas. Spleen: Normal. No splenomegaly. Adrenal glands: Normal. No mass. Kidneys and ureters: Normal. No hydronephrosis. Stomach and bowel: No dilated loops of large or small bowel is appreciated. No bowel wall thickening is identified. Appendix: No evidence of appendicitis. Intraperitoneal space: Unremarkable. No free air. No significant fluid collection. Vasculature: The aorta is normal in caliber. There is calcified plaque involving the aorta and its branch vessels. Lymph nodes: Unremarkable. No enlarged lymph nodes. Urinary bladder: Unremarkable as visualized. Reproductive: Unremarkable as visualized. Bones/joints: There are nondisplaced fractures involving the right 5th and 6th ribs. Soft tissues: There is abnormal density within the subcutaneous tissues of the lower anterior abdominal wall. Exact etiology is uncertain. There are small fat filled inguinal hernia defects. CT/CT kidney stone [id number] IMPRESSION: 1. Partially imaged right 5th and 6 rib fractures. 2. Trace right pleural effusion with linear scarring and/or atelectasis favored at the lung bases. A component of pneumonia at the lung bases cannot be reasonably excluded. 3. Fatty infiltration of the liver. 4. Small to moderate-sized hiatal hernia. 5. Abnormal density within the subcutaneous tissues of the lower anterior abdominal wall. Etiology is uncertain. Recommend clinical correlation.
--- NOTE | 2024-05-30 10:35 | ECG_ITS ---
[facility] Test Date: 2024-05-30 Pat Name: Aníbal Amaro Department: Room: Gender: Male Reed Dipper: : 1955 Requested By: Gerard Pineda Order Number: [id number] Dot MD: Bradley Garcia M.D. Measurements Intervals [place] Rate: 106 P: 2 MN: 140 QRS: 120 QRSD: 124 T: -37 QT: 322 QTc: 429 Interpretive Statements SINUS TACHYCARDIA POSSIBLE RIGHT VENTRICULAR HYPERTROPHY [SOME/ALL OF: PROMINENT R IN V1, LATE TRANSITION, RAD, MANAS, SSS] POSSIBLE ANTERIOR MYOCARDIAL INFARCTION , OF INDETERMINATE AGE [30 ms Q WAVE IN V3/V4, OR R < 0.2 mV IN V4] MODERATE T-WAVE ABNORMALITY, CONSIDER INFERIOR ISCHEMIA [-0.1+ mV T-WAVE IN II/aVF] No previous ECG available for comparison Electronically Signed On 05-30-2024 13:14:19 CDT by Bradley Garcia M.D. [id number]
[2024-05-30] MEDS: albuterol 2.5 mg/3 mL Neb 10 MG INHALATION (10:52)
[2024-05-30] MEDS: sodium bicarbonate 50 MEQ in dextrose 5% 250 ML 1000 MEQ IV (11:06)
[2024-05-30] MEDS: sodium polystyrene sulfonate 15 gm/60 mL Btl PO (11:06)
[2024-05-30] MEDS: calcium chloride 10% Syr 10 mL 1 GM IVP (11:06)
[2024-05-30] MEDS: morphine 4 mg/mL SDV 1 mL 2 MG IVP ×2 (11:59→13:16)
[2024-05-30 12:14] LABS: Add Urine Microscopic? NO; Charge for UA Resulting for Rev
[2024-05-30 12:17] LABS: Bilirubin Urine Neg (Negative); Blood Urine Neg (Negative); Glucose Urine UA 4+ (Normal); Ketones Urine 1+ (Negative); Leukocyte Esterase Urine Negative (Negative); Nitrate Urine Negative (Negative); Protein Urine Neg (Negative); Specific Gravity, Urine 1.015 (1.005-1.030); Urine Appearance Clear (CLEAR); Urine Color Yellow (Yellow); Urobilinogen Urine Norm (Negative); pH Urine 5 (5-7)
[2024-05-30] MEDS: sodium chloride 0.9% 1,000 ML 999 ML IV (12:27)
[2024-05-30 12:53] LABS: Anion Gap 20.5 (5-19); Blood Urea Nitrogen 34 mg/dL (8-23); Calcium 11.3 mg/dL (8.5-10.5); Carbon Dioxide 22 mmol/L (22-29); Chloride 98 mmol/L (98-107); Glomerular Filtration Rate 43.3 mL/min (90-130); Glucose 330 mg/dL (65-115); Osmolality Calculated 300 mOsm/kg (285-295); Potassium 5.5 mmol/L (3.5-5.1); Sodium 135 mmol/L (136-145)
--- NOTE | 2024-05-30 13:11 | PC.NURSE ---
REPORTED PAIN TO DR. CHILD. VERBAL ORDER FROM DR. CHILD FOR MORPHINE 4MG ONCE IVP.
[2024-05-30 13:12] LABS: Creatinine Clr Calc Pharmacy 49.3006
--- NOTE | 2024-05-30 14:59 | P.HP_ITS ---
Providers/Chief Complaint 2 Primary Care Provider: Terry Reyes MD Chief Complaint: RIGHT RIB PAIN S/P FALL History of Present Illness Aníbal Amaro is a 69 year old male with past medical history type 2 diabetes mellitus, hypertension, diabetic foot who is a detention resident with sister's guardian fell on Saturday while he was trying to change the air fashion in his room. Patient describes the fall as mechanical. Did not hit his head. After the fall he has been complaining of pain on the right side of his chest worsening on taking a deep breath. In the ER he was found to have a rib fracture and urinary retention along with hyperkalemia and MELINDA for which hospitalist service was consulted. Patient denies any nausea vomiting, headache, dizziness, headache, chest pain, dysuria. Review of Systems 2 General: Reports: 10 or more systems reviewed and unremarkable except in HPI and below Const: Denies: fever(s), chills, body aches, change in appetite, change in weight, malaise, night sweats, diaphoresis, change in sleep pattern, daytime sleepiness or snoring Eyes: Denies: change in vision, blurry vision, photophobia, eye discomfort or eye discharge ENMT: Denies: throat pain, enlarged tonsils, hoarseness, mouth pain, oral sores, dry mouth, tinnitus, nasal congestion or post nasal drip Card: Denies: chest pain, palpitations, irregular heart rhythm, edema, swelling of feet/ankles, lightheadedness, syncope, pre-syncope, dyspnea on exertion, orthopnea, leg pain with exertion or acrocyanosis Resp: Denies: dyspnea, productive cough, non-productive cough, wheezing, stridor, pain on inspiration, change in phlegm color, hemoptysis or chest congestion GI: Denies: abdominal pain, nausea, vomiting, hematemesis, coffee ground emesis, dysphagia, heartburn, diarrhea, constipation, bloating, GI cramping, change in bowel habits, pain on defecation, hematochezia or melena : Denies: flank pain, difficulty urinating, dysuria, urinary frequency, urinary urgency, urinary hesitancy, urinary dribbling, difficulty starting urination, change in urine stream, nocturia or hematuria Musc: Denies: neck pain, back pain, extremity pain, joint pain, joint swelling, joint redness, joint stiffness or limited range of motion Neuro: Denies: headache(s), numbness in extremities, weakness in extremities, sensory changes, lack of coordination, difficulty walking, frequent falls, dizziness, vertigo, confusion, Slurred speech present, difficulty communicating thoughts or seizure-like activity Psych: Denies: anxiety, depression, mood swings, panic attacks, hopelessness or irritability Endo: Denies: polyuria, polydipsia, tired all the time, cold intolerance, excessive sweating, flushing or heat intolerance Mirza/Lymph: Denies: easy bruising or easy bleeding All/Imm: Denies: tongue swelling, facial swelling or acute wheezing Medications/Allergies Home Medications Medication Instructions Recorded Confirmed Last Taken Type oxycodone 10 mg tablet 10 mg PO Q8H PRN Pain 05/18/23 05/18/24 02/24/24 History diabetic shoes with 3 inserts #1 ea 01/09/24 05/18/24 Unknown Rx Lactobacillus acidoph-L.bulgaricus 1 tab PO TID 02/25/24 05/18/24 02/25/24 History 1 million cell tablet (Floranex) acetaminophen 325 mg tablet 650 mg PO QID PRN Pain 02/25/24 05/18/24 Unknown History ascorbic acid (vitamin C) 500 mg 500 mg PO DAILY 02/25/24 05/18/24 02/25/24 History chewable tablet (Vitamin C) bisacodyl 10 mg rectal suppository 10 mg LA DAILY PRN Constipation 02/25/24 05/18/24 Unknown History calcium carbonate 1,000 mg PO Q4H PRN Dyspepsia 02/25/24 05/18/24 Unknown History dapagliflozin propanediol 10 mg 10 mg PO DAILY 02/25/24 05/18/24 02/25/24 History tablet (Farxiga) ferrous sulfate 325 mg (65 mg 325 mg PO DAILY 02/25/24 05/18/24 02/25/24 History iron) tablet insulin aspart U-100 100 unit/mL See Rx Instructions .Route .COMPLEX 02/25/24 05/18/24 02/25/24 History (3 mL) subcutaneous pen insulin glargine 100 unit/mL (3 60 unit SUBCUT BEDTIME 02/25/24 05/18/24 02/24/24 History mL) subcutaneous pen (Lantus Solostar U-100 Insulin) lanolin alcohols-mineral 1 applic topical DAILY PRN 02/25/24 05/18/24 Unknown History oil-w.petrolatum-ceresin topical IRRITATION cream (Eucerin topical cream) lisinopril 5 mg tablet 5 mg PO BEDTIME 02/25/24 05/18/24 02/24/24 History magnesium hydroxide 400 mg/5 mL 30 ml PO DAILY PRN Constipation 02/25/24 05/18/24 Unknown History oral suspension (Milk of Magnesia) nifedipine 30 mg tablet,extended 30 mg PO BEDTIME 02/25/24 05/18/24 02/24/24 History release 24 hr nystatin 100,000 unit/gram topical 1 applic topical BID 02/25/24 05/18/24 02/25/24 History powder omeprazole 20 mg capsule,delayed 20 mg PO DAILY 02/25/24 05/18/24 02/25/24 History release peg 400-propylene glycol (PF) 0.4 1 drp ophthalmic (eye) DAILY PRN 02/25/24 05/18/24 Unknown History %-0.3 % eye drops in a dropperette Dry Eyes (Systane (PF)) sennosides 8.6 mg-docusate sodium 1 tab-cap PO Q12H PRN Constipation 02/25/24 05/18/24 Unknown History 50 mg tablet (Senokot-S) Allergies Allergy/AdvReac Type Severity Reaction Status Date / Time sulfamethoxazole Allergy ALGY-Rash Verified 05/18/24 14:07 [From Bactrim] trimethoprim [From Bactrim] Allergy ALGY-Rash Verified 05/18/24 14:07 PFSH Acute 2 PFSH: Medical History (Updated 05/30/24 @ 16:21 by Gerard Summers DO) Hypertension History of diabetic ulcer of foot Osteomyelitis Diabetes Surgical History (Updated 05/30/24 @ 15:44 by Cornelius Hughes MD) Status post amputation of toe of right foot Social History Smoking and tobacco/nicotine status: never used tobacco/nicotine Vitals/I&O/Wt Last Vital Signs Temp 98.4 F 05/30/24 09:01 Pulse 108 H 07/13/24 14:39 Resp 18 05/30/24 13:16 BP 158/98 05/30/24 14:39 Pulse Ox 93 05/30/24 14:39 O2 Del Method Room Air 05/30/24 14:39 05/29/24 05/30/24 05/30/24 22:59 06:59 14:59 Intake Total 300 / 300 Balance 300 / 300 Weight last 48 hrs Weight 88.451 kg Physical Exam 2 Narrative: General: In acute distress because of pain on the right side of the chest, AO x 3 HEENT: PERRLA, pupils bilaterally equal and reactive Chest: Normal vesicular breath sounds, no added sounds, decreased air entry, CVS: S1-S2 regular, no murmurs, no tachycardia, no gallops, no rubs Abdomen: Soft, nontender, no organomegaly, bowel sounds present Neuro: No focal deficits, no facial deformity, AO x3, power 5/5 in all limbs Urinary Catheter Management: Weiss: Cath Placed During This Visit: yes Urinary Catheter Date of Insertion: 05/30/24 Urinary Catheter Time of Insertion: 14:39 Data 05/30/24 09:36 05/30/24 12:25 A&P Assessment and plan (1) Acute kidney injury superimposed on CKD: Baseline creatinine seems to be around 1.3. Currently 1.6 with hyperkalemia. Could be in setting of urinary retention. Normal saline 50 cc/h. Weiss catheter in place. Check urine lites, urine creatinine, urine eosinophils. Monitor renal functions daily. (2) Urinary retention: As above. Start on Flomax 0.4 mg daily. Most likely patient will need to follow-up with urology as an outpatient. (3) Hyperkalemia: Received D10 and 10 units of insulin along with Kayexalate in ER. Creatinine down to 5.5. Repeat D10 and insulin dose. Repeat potassium level in evening. Monitor regularly. Telemetry. (4) Fall: No documented history of head injury. Found to have rib fracture. Check orthostatics. Gentle IV hydration with normal saline at 50 cc/h. Fall precautions. (5) Rib fracture: Incentive spirometry. Morphine 2 mg every 4 hours as needed for pain control. Lidocaine patch. (6) Hypertension: Goal blood pressure less than 140/90 mmHg. Takes lisinopril 5 mg along with nifedipine 30 mg at home. Holding off on lisinopril for now given MELINDA on CKD. Uptitrate as for goal blood pressure. (7) Type 2 diabetes mellitus: Check A1c. Continue with home dose of Lantus. Insulin sliding scale. Carb consistent diet. Plan Full code. Sister recently guardian. Her name is Casie Adame Carb consistent cardiac diet Protonix OPD prophylaxis Heparin 5000 every 12 hourly for DVT prophylaxis Attestations 2 Medical Necessity Statement*: Admission for more than 2 midnights for management of MELINDA on CKD in setting of urinary retention, hyperkalemia in a patient admitted post fall found to have rib fracture Diagnoses Acute kidney injury superimposed on CKD N17.9; N18.9 Urinary retention R33.9 Hyperkalemia E87.5 Fall W19.XXXA Rib fracture S22.39XA Hypertension I10 Type 2 diabetes mellitus E11.9
[2024-05-30 15:23] LABS: Potassium, Radom Urine 40 mmol/L; Urine Creatinine 90 mg/dL (39-259); Urine Random Chloride 24 mmol/L; Urine Random Sodium 31 mmol/L
[2024-05-30 15:25] LABS: Procalcitonin 0.14 ng/mL (0-0.5)
[2024-05-30] MEDS: insulin regular-human 100 units/1 mL 10 UNIT IVP (15:27)
[2024-05-30] MEDS: heparin 5,000 unit/mL INJ 1 mL 5000 UNIT SUBCUT (15:27)
[2024-05-30 16:25] LABS: Iron 86 ug/dL (59-158); Percent Saturation 32.5 % (20-50); Thyroid Stimulating Hormone 1.71 uIU/mL (0.27-4.20); Total Iron Binding Capacity 264 mcg/dl; Unsaturated Iron Binding 178 ug/dL (112-347); Vitamin B12 519 pg/mL (232-1245)
[2024-05-30] MEDS: tamsulosin 0.4 mg Capsule PO (16:26)
[2024-05-30] MEDS: HYDROcodone-acetaminophen 5-325 mg Tablet 1 TAB PO ×2 (16:26→23:44)
[2024-05-30] MEDS: lidocaine 5% Patch 1 PATCH TOPICAL (16:26)
[2024-05-30] MEDS: acetaminophen 325 mg Tablet 650 MG PO (16:27)
[2024-05-30] MEDS: sodium chloride 0.9% 1,000 ML 50 ML IV (16:30)
[2024-05-30 16:39] LABS: Glucose Point of Care 178 mg/dL (70-110)
[2024-05-30] MEDS: insulin lispro 100 unit/1 mL SUBCUT ×2 (16:48→21:43)
[2024-05-30 18:20] LABS: Potassium 5.1 mmol/L (3.5-5.1)
[2024-05-30 21:33] LABS: Glucose Point of Care 272 mg/dL (70-110)
[2024-05-30] MEDS: NIFEdipine ER (24 hr) 30 mg Tablet PO (21:43)
[2024-05-30] MEDS: insulin glargine 100 units/1 mL 60 UNIT SUBCUT (22:48)
[2024-05-31] VITALS (11 sets, daily range): BP systolic 134–173; BP diastolic 74–87; PULSE 73–90; RESP 16–19; TEMP 36.7–37; O2SAT 92–96
[2024-05-31] MEDS: morphine 4 mg/mL SDV 1 mL 2 MG IVP ×2 (00:44→06:13)
[2024-05-31] MEDS: acetaminophen 325 mg Tablet 650 MG PO ×2 (02:16→10:14)
[2024-05-31] MEDS: HYDROcodone-acetaminophen 5-325 mg Tablet 1 TAB PO ×4 (03:47→21:47)
[2024-05-31 04:09] LABS: Basophils % 0.5 %; Eosinophils # 0.1 10^3/uL (0.0-0.8); Eosinophils % 1.1 %; Hematocrit 45.2 % (37-53); Lymphocytes # 0.9 10^3/uL (0.8-4.8); Lymphocytes % 10.2 %; Mean Corpuscular HGB Conc 32.1 g/dL (30-55); Mean Corpuscular Hemoglobin 29.3 pg (27-33); Mean Corpuscular Volume 91.3 fl (82-101); Mean Platelet Volume 10.9 fL (7.4-10.4); Monocytes # 1.1 10^3/uL (0.2-0.9); Monocytes % 12.5 %; Neutrophils # 6.64 10^3/uL (1.8-7.7); Neutrophils % 75.4 %; Nucleated Red Blood Cells % 0 %; Platelet Count 173 10^3/cmm (157-399); Red Blood Count 4.95 10^6/uL (3.85-5.65); Red Cell Distribution Width 13.2 % (12.1-15.1); White Blood Count 8.81 10^3/uL (3.29-11.43)
[2024-05-31 04:19] LABS: Estmated Average Glucose 183
[2024-05-31 04:40] LABS: Alanine Aminotransferase 17 U/L (0-41); Albumin Level 3.7 g/dL (3.5-5.2); Alkaline Phosphatase 57 U/L (40-130); Anion Gap 15.3 (5-19); Aspartate Amino Transferase 12 U/L (0-40); Blood Urea Nitrogen 31 mg/dL (8-23); Calcium 9.5 mg/dL (8.5-10.5); Carbon Dioxide 23 mmol/L (22-29); Chloride 106 mmol/L (98-107); Globulin 3.4 g/dL (1.3-4.6); Glomerular Filtration Rate 50.5 mL/min (90-130); Glucose 69 mg/dL (65-115); Magnesium 1.9 mg/dL (1.7-2.3); Osmolality Calculated 295 mOsm/kg (285-295); Potassium 4.3 mmol/L (3.5-5.1); Sodium 140 mmol/L (136-145); Total Bilirubin 0.8 mg/dL (0.15-1.2); Total Protein 7.1 g/dL (6.6-8.7)
[2024-05-31 04:41] LABS: Procalcitonin 0.18 ng/mL (0-0.5)
[2024-05-31 04:46] LABS: Chol HDL Ratio 3.55 mg/dL (1.0-5.00); Cholesterol 142 mg/dL (0-200); HDL Cholesterol 40 mg/dL (60-100); LDL Cholesterol Calculated 87 mg/dL (50-129); LDL HDL Ratio 2.18 RATIO (0.00-3.22); Triglycerides 77 mg/dL (0-150)
[2024-05-31 04:51] LABS: Folate Level 18.5 ng/mL (4.5-32.2)
[2024-05-31 06:41] LABS: Glucose Point of Care 92 mg/dL (70-110)
[2024-05-31] MEDS: pantoprazole DR 40 mg Tablet PO (10:13)
[2024-05-31] MEDS: tamsulosin 0.4 mg Capsule PO (10:13)
[2024-05-31] MEDS: ferrous sulfate EC 325 mg Tablet PO (10:13)
[2024-05-31] MEDS: lidocaine 5% Patch 1 PATCH TOPICAL ×2 (10:14→21:46)
[2024-05-31] MEDS: heparin 5,000 unit/mL INJ 1 mL 5000 UNIT SUBCUT ×2 (10:14→21:46)
[2024-05-31 11:53] LABS: Glucose Point of Care 137 mg/dL (70-110)
[2024-05-31] MEDS: sodium chloride 0.9% 1,000 ML 50 ML IV (12:13)
--- NOTE | 2024-05-31 12:40 | PM.DCS ---
Discharge Providers Date of Admission: 05/30/24 14:00 Date of Discharge: May 31, 2024 Attending Provider at Admission: Cornelius Hughes MD Attending Provider at Discharge: Cornelius Hughes MD Primary Care Provider: Terry Reyes MD Diagnoses at Discharge Discharge Diagnosis (1) Acute kidney injury superimposed on CKD: Status: Acute (2) Urinary retention: Status: Acute (3) Hyperkalemia: Status: Acute (4) Fall: Status: Acute (5) Rib fracture: Status: Acute (6) Hypertension: Status: Acute (7) Type 2 diabetes mellitus: Status: Acute Reason for Visit Reason for Visit: RIGHT RIB PAIN S/P FALL Hospital Course Hospital Course Aníbal Amaro is a 69 year old male with past medical history type 2 diabetes mellitus, hypertension, diabetic foot who is a [facility] resident with sister's guardian fell on Saturday while he was trying to change the air fashion in his room. Patient describes the fall as mechanical. Did not hit his head. After the fall he has been complaining of pain on the right side of his chest worsening on taking a deep breath. In the ER he was found to have a rib fracture and urinary retention along with hyperkalemia and MELINDA for which hospitalist service was consulted. Patient denies any nausea vomiting, headache, dizziness, headache, chest pain, dysuria. Patient was sent to the hospital further evaluation and management of MELINDA on CKD, mild hyperkalemia in setting of urinary retention along with a rib fracture in setting of fall. He is started on IV hydration. Weiss catheter was placed. Hyperkalemia resolved. Renal functions are back to baseline. Patient is able to ambulate with the help of walker. He has been discharged back to [facility] with Weiss catheter in place with advised to follow-up with urology within next 2 weeks on oral Flomax 0.4 mg daily. If his Weiss catheter remains in place for more than 1 month it should be replaced. He is advised to continue with aggressive pulm toilet with incentive spirometry. He should continue getting his pain medications as before along with lidocaine patch for next 1 week. Physical Exam Narrative: General: No acute distress, AO x 3 HEENT: PERRLA, pupils bilaterally equal and reactive Chest: Normal vesicular breath sounds, no added sounds, decreased air entry, CVS: S1-S2 regular, no murmurs, no tachycardia, no gallops, no rubs Abdomen: Soft, nontender, no organomegaly, bowel sounds present Neuro: No focal deficits, no facial deformity, AO x3, power 5/5 in all limbs Urinary Catheter Management: Weiss: Cath Placed During This Visit: yes Reason for Continuing Indwelling Catheter: Acute Urinary Retention or Obstruction Urinary Catheter Date of Insertion: 05/30/24 Urinary Catheter Time of Insertion: 14:39 Discharge Data Studies Completed and Pending Completed Studies During Hospitalization Category Date Time Status CT kidney stone [id number] Stat Cat Scan 05/30/24 10:19 Completed XR ribs RT mn 3V w CXR1V [id number] Stat Exams 05/30/24 09:01 Completed Radiology Impressions Ribs X-Ray 05/30/24 09:01 IMPRESSION: 1. Low lung volumes with linear atelectasis or scarring at the lung bases. 2. Mild cardiomegaly. Abdomen/Pelvis CT 05/30/24 10:19 IMPRESSION: 1. Partially imaged right 5th and 6 rib fractures. 2. Trace right pleural effusion with linear scarring and/or atelectasis favored at the lung bases. A component of pneumonia at the lung bases cannot be reasonably excluded. 3. Fatty infiltration of the liver. 4. Small to moderate-sized hiatal hernia. 5. Abnormal density within the subcutaneous tissues of the lower anterior abdominal wall. Etiology is uncertain. Recommend clinical correlation. Laboratory Results WBC 8.81 10^3/uL (3.29-11.43) 05/31/24 03:11 RBC 4.95 10^6/uL (3.85-5.65) 05/31/24 03:11 Hgb 14.50 g/dL (11.27-16.99) 05/31/24 03:11 Hct 45.2 % (37-53) 05/31/24 03:11 MCV 91.3 fl (82-101) 05/31/24 03:11 MCH 29.3 pg (27-33) 05/31/24 03:11 MCHC 32.1 g/dL (30-55) 05/31/24 03:11 RDW 13.2 % (12.1-15.1) 05/31/24 03:11 Plt Count 173 10^3/cmm (157-399) 05/31/24 03:11 MPV 10.9 fL (7.4-10.4) H 05/31/24 03:11 Neut % (Auto) 75.4 % 05/31/24 03:11 Lymph % (Auto) 10.2 % 05/31/24 03:11 [place] % (Auto) 12.5 % 05/31/24 03:11 Eos % (Auto) 1.1 % 05/31/24 03:11 Baso % (Auto) 0.5 % 05/31/24 03:11 Neut # (Auto) 6.64 10^3/uL (1.8-7.7) 05/31/24 03:11 Lymph # (Auto) 0.9 10^3/uL (0.8-4.8) 05/31/24 03:11 [place] # (Auto) 1.1 10^3/uL (0.2-0.9) H 05/31/24 03:11 Eos # (Auto) 0.1 10^3/uL (0.0-0.8) 05/31/24 03:11 Baso # (Auto) 0.0 10^3/uL (0.0-0.1) 05/31/24 03:11 Nucleated RBC % (auto) 0 % 05/31/24 03:11 Nucleated RBCs # 0.0 /100WBC 05/31/24 03:11 Sodium 140 mmol/L (136-145) 05/31/24 03:11 Potassium 4.3 mmol/L (3.5-5.1) 05/31/24 03:11 Chloride 106 mmol/L (98-107) 05/31/24 03:11 Carbon Dioxide 23 mmol/L (22-29) 05/31/24 03:11 Anion Gap 15.3 (5-19) 05/31/24 03:11 BUN 31 mg/dL (8-23) H 05/31/24 03:11 Creatinine 1.4 mg/dL (0.7-1.2) H 05/31/24 03:11 GFR Calculation 50.5 mL/min (90-130) L 05/31/24 03:11 Glucose 69 mg/dL (65-115) 05/31/24 03:11 POC Glucose 137 mg/dL (70-110) H 05/31/24 11:33 Estimat Average Glucose 183 05/31/24 03:11 Hemoglobin A1c 8.0 % (4.0-6.0) H 05/31/24 03:11 Calculated Osmolality 295 mOsm/kg (285-295) 05/31/24 03:11 Calcium 9.5 mg/dL (8.5-10.5) 05/31/24 03:11 Phosphorus 3.0 mg/dL (2.5-4.5) 05/31/24 03:11 Magnesium 1.9 mg/dL (1.7-2.3) 05/31/24 03:11 Iron 86 ug/dL (59-158) 05/30/24 12:25 TIBC 264 mcg/dl 05/30/24 12:25 % Saturation 32.5 % (20-50) 05/30/24 12:25 Unsat Iron Binding 178 ug/dL (112-347) 05/30/24 12:25 Total Bilirubin 0.8 mg/dL (0.15-1.2) 05/31/24 03:11 AST 12 U/L (0-40) 05/31/24 03:11 ALT 17 U/L (0-41) 05/31/24 03:11 Alkaline Phosphatase 57 U/L (40-130) 05/31/24 03:11 Total Protein 7.1 g/dL (6.6-8.7) 05/31/24 03:11 Albumin 3.7 g/dL (3.5-5.2) 05/31/24 03:11 Globulin 3.4 g/dL (1.3-4.6) 05/31/24 03:11 Triglycerides 77 mg/dL (0-150) 05/31/24 03:11 Cholesterol 142 mg/dL (0-200) 05/31/24 03:11 LDL Cholesterol, Calc 87 mg/dL (50-129) 05/31/24 03:11 HDL Cholesterol 40 mg/dL (60-100) L 05/31/24 03:11 LDL/HDL Ratio 2.18 RATIO (0.00-3.22) 05/31/24 03:11 Cholesterol/HDL Ratio 3.55 mg/dL (1.0-5.00) 05/31/24 03:11 Lipase 5 U/L (13-60) L 05/30/24 09:36 Vitamin B12 519 pg/mL (232-1245) 05/30/24 12:25 Folate 18.5 ng/mL (4.5-32.2) 05/31/24 03:11 Procalcitonin 0.18 ng/mL (0-0.5) 05/31/24 03:11 TSH 1.71 uIU/mL (0.27-4.20) 05/30/24 12:25 Urine Color Yellow (Yellow) 05/30/24 12:00 Urine Appearance Clear (CLEAR) 05/30/24 12:00 Urine pH 5 (5-7) 05/30/24 12:00 Ur Specific [place] 1.015 (1.005-1.030) 05/30/24 12:00 Urine Protein Neg (Negative) 05/30/24 12:00 Urine Glucose (UA) 4+ (Normal) H 05/30/24 12:00 Urine Ketones 1+ (Negative) H 05/30/24 12:00 Urine Blood Neg (Negative) 05/30/24 12:00 Urine Nitrate Negative (Negative) 05/30/24 12:00 Urine Bilirubin Neg (Negative) 05/30/24 12:00 Urine Urobilinogen Norm mg/dL (Negative) 05/30/24 12:00 Ur Leukocyte Esterase Negative (Negative) 05/30/24 12:00 Ur Random Sodium 31 mmol/L 05/30/24 12:00 Ur Random Potassium 40 mmol/L 05/30/24 12:00 Ur Random Chloride 24 mmol/L 05/30/24 12:00 Urine Creatinine 90 mg/dL (39-259) 05/30/24 12:00 Vitals Last Vital Signs Temp 98.4 F 05/31/24 12:00 Pulse 77 05/31/24 12:00 Resp 18 05/31/24 12:00 BP 138/82 05/31/24 12:00 Pulse Ox 93 05/31/24 12:00 O2 Del Method Room Air 05/31/24 12:00 Discharge Plan Discharge Patient Disposition: Home Condition: Stable Prescriptions: New lidocaine 5 % Adhesive Patch,Medicated 1 patch topical [id number] Qty: 15 0RF tamsulosin 0.4 mg Capsule 0.4 mg PO DAILY Qty: 30 0RF Continued (DME) diabetic shoes with 3 inserts See Rx Instructions .Route .MEDSUPPLY Qty: 1 0RF Rx Instructions: As directed to the shoe kaitlynn oxycodone 10 mg tablet 10 mg PO Q8H PRN (Reason: Pain) nifedipine [Procardia XL] 30 mg tablet extended release 24hr 30 mg PO BEDTIME acetaminophen 325 mg Tablet 650 mg PO QID PRN (Reason: Pain) sennosides-docusate sodium [Senokot-S] 8.6-50 mg Tablet 1 tab-cap PO Q12H PRN (Reason: Constipation) magnesium hydroxide [Milk of Magnesia] 400 mg/5 mL Suspension 30 ml PO DAILY PRN (Reason: Constipation) calcium carbonate [Calcium 500] 500 mg calcium (1,250 mg) Tablet 1,000 mg PO Q4H PRN (Reason: Dyspepsia) bisacodyl 10 mg Suppository 10 mg NM DAILY PRN (Reason: Constipation) ferrous sulfate [Iron (ferrous sulfate)] 325 mg (65 mg iron) Tablet 325 mg PO DAILY ascorbic acid (vitamin C) [Vitamin C] 500 mg Tablet,Chewable 500 mg PO DAILY omeprazole 20 mg Capsule,Delayed Release(Dr/Ec) 20 mg PO DAILY lisinopril [Zestril] 5 mg tablet 5 mg PO BEDTIME nystatin 100,000 unit/gram powder 1 applic TOPICAL BID insulin aspart U-100 100 unit/mL (3 mL) insulin pen See Rx Instructions .ROUTE .COMPLEX Rx Instructions: GIVE 15 UNITS BY SUBCUTANEOUS INJECTION THREE TIMES DAILY. OLD IF BS IS BELOW 140. Systane (PF) 0.4-0.3 % Dropperette 1 drp OPHTHALMIC (EYE) DAILY PRN (Reason: Dry Eyes) insulin glargine [Lantus Solostar U-100 Insulin] 100 unit/mL (3 mL) insulin pen 60 unit SUBCUT BEDTIME Eucerin Cream 1 applic TOPICAL DAILY PRN (Reason: IRRITATION) Lactobacillus acidoph-L.bulgar [Floranex] 1 million cell Tablet 1 tab PO TID dapagliflozin propanediol [Farxiga] 10 mg tablet 10 mg PO DAILY Farxiga 10 mg tablet 10 mg PO DAILY Discharge Orders: Discharge Order (Routine); Ordered 05/31/24 Ordered By: Cornelius Hughes Referrals: Terry Reyes MD [Primary Care Provider] - 7-10 days Reji Suazo [Referring] - 2 weeks Discharge Diet: Cardiac and Diabetic Discharge Activity: Resume usual activity and Increase activity as tolerated Patient Instructions: Opioid Safety Activity Restrictions/Additional Instructions: Continue with aggressive pulmonary toilet with incentive spirometry. Follow-up with urology within next 2 weeks. If Weiss catheter remains in place for more than 1 month it should be replaced. Discharge Attestations Time Spent in Discharge Care*: greater than 30 min Specific Discharge Activities: educating patient, discussing with pcp/other providers, discussing with family independence case manager/social workers/dc planners, documenting/other paperwork and evaluating patient/reviewing data Status at Discharge: Cognitive status at discharge: cognitively intact, Behavioral status at discharge: cooperative, Functional status at discharge: uses cane/walker, Overall status at discharge: patient is progressing back to baseline Quality Metrics Clinical Quality Measures [ No reported AMI, CVA or VTE this stay] Coding Level of Care Code 60575 Total time (in minutes) for Discharge: 60 Diagnoses Acute kidney injury superimposed on CKD N17.9; N18.9 Urinary retention R33.9 Hyperkalemia E87.5 Fall W19.XXXA Rib fracture S22.39XA Hypertension I10 Type 2 diabetes mellitus E11.9
[2024-05-31 16:19] LABS: Glucose Point of Care 153 mg/dL (70-110)
[2024-05-31] MEDS: insulin lispro 100 unit/1 mL SUBCUT (17:40)
[2024-05-31 20:44] LABS: Glucose Point of Care 138 mg/dL (70-110)
[2024-05-31] MEDS: NIFEdipine ER (24 hr) 30 mg Tablet PO (21:46)
[2024-05-31] MEDS: insulin glargine 100 units/1 mL 60 UNIT SUBCUT (21:46)
[2024-06-01 00:04] VITALS: BP 153/88; PULSE 107; RESP 15; TEMP 36.9; O2SAT 95
[2024-06-01 04:00] VITALS: BP 159/80; PULSE 81; RESP 20; TEMP 36.8; O2SAT 94
[2024-06-01 05:28] LABS: Basophils # 0.1 10^3/uL (0.0-0.1); Basophils % 0.7 %; Eosinophils # 0.1 10^3/uL (0.0-0.8); Eosinophils % 1.5 %; Lymphocytes # 0.7 10^3/uL (0.8-4.8); Lymphocytes % 8.7 %; Mean Corpuscular HGB Conc 32.3 g/dL (30-55); Mean Corpuscular Volume 89.5 fl (82-101); Mean Platelet Volume 10.4 fL (7.4-10.4); Monocytes # 0.7 10^3/uL (0.2-0.9); Monocytes % 8.7 %; Neutrophils % 80.1 %; Nucleated Red Blood Cells % 0 %; Platelet Count 156 10^3/cmm (157-399); Red Blood Count 5.25 10^6/uL (3.85-5.65); Red Cell Distribution Width 12.5 % (12.1-15.1); White Blood Count 7.48 10^3/uL (3.29-11.43)
[2024-06-01 05:50] LABS: Alanine Aminotransferase 19 U/L (0-41); Albumin Level 3.5 g/dL (3.5-5.2); Alkaline Phosphatase 60 U/L (40-130); Anion Gap 15.9 (5-19); Aspartate Amino Transferase 19 U/L (0-40); Blood Urea Nitrogen 25 mg/dL (8-23); Calcium 9.3 mg/dL (8.5-10.5); Carbon Dioxide 22 mmol/L (22-29); Chloride 106 mmol/L (98-107); Creatinine Clr Calc Pharmacy 68.2019; Globulin 3.7 g/dL (1.3-4.6); Glomerular Filtration Rate 60.4 mL/min (90-130); Glucose 78 mg/dL (65-115); Osmolality Calculated 293 mOsm/kg (285-295); Potassium 3.9 mmol/L (3.5-5.1); Sodium 140 mmol/L (136-145); Total Bilirubin 0.7 mg/dL (0.15-1.2); Total Protein 7.2 g/dL (6.6-8.7)
[2024-06-01 06:00] VITALS: PULSE 84
[2024-06-01 06:22] LABS: Glucose Point of Care 82 mg/dL (70-110)
[2024-06-01] MEDS: HYDROcodone-acetaminophen 5-325 mg Tablet 1 TAB PO ×2 (07:40→11:37)
[2024-06-01 08:00] VITALS: BP 148/78; PULSE 91; RESP 18; TEMP 36.6; O2SAT 91
[2024-06-01] MEDS: bisacodyl 5 mg Tablet 10 MG PO (09:16)
[2024-06-01] MEDS: ferrous sulfate EC 325 mg Tablet PO (09:17)
[2024-06-01] MEDS: lidocaine 5% Patch 1 PATCH TOPICAL (09:17)
[2024-06-01] MEDS: tamsulosin 0.4 mg Capsule PO (09:17)
[2024-06-01] MEDS: pantoprazole DR 40 mg Tablet PO (09:17)
[2024-06-01] MEDS: heparin 5,000 unit/mL INJ 1 mL 5000 UNIT SUBCUT (09:18)
--- NOTE | 2024-06-01 09:35 | PC.CHAP ---
Pastoral Care Encounter/Spiritual Assessment Type of Contact [] Declined road grader visit [] Patient/Family/Request visit [] Outpatient visit [] Follow-up visit [] Physician referral [] Code/Alert [x] Routine visit [] Staff referral [] Actively dying [] Patient sleeping [] Family support [] [x] Out of room [] Palliative care [] [] Receiving care in room [] Pre-surgical visit [] Trauma [] Long length of stay [] ICU visit [] Other: Relational/Emotional Strength [] Patient feels connected with others/family/visitors/staff [] Distress [] Loneliness/isolation [] Abandonment Spirituality of Patient [] Person of Divina [] Attends [facility] of their Divina [] Believes in Prayer [] Reads Bible or Orthodox materials [] There are Spiritual issues to be addressed Plant Control Aide Interventions [] Prayer [] Active listening [] Non-anxious presence [] Spiritual/emotional support [] Crisis/trauma care [] Spiritual counseling [] Bereavement support [] Provided bereavement packet [] Provided Bible/devotional materials [] Provided toy/stuffed animal, coloring book to patient or family member [] Provided Communion [] Anointing/[place] [] Salvation [] Completed spiritual assessment [] Other: Impact on Illness or Injury [] Angry [] Fearful [] Anxious [] Often cries [] Exhaustion [] Unable to work [] Unable to attend mosque [] Unable to walk/stand [] Unable to read [] Unable to drive [] Unable to eat/drink [] Unable to sleep [] Unable to be with family [] Patient intubated [] Other: Summary Time spent with patient
[2024-06-01 10:00] VITALS: BMI 31.1
--- NOTE | 2024-06-01 12:21 | PC.NURSE ---
pt wanted to eat lunch and shower prior to leaving. Ride is here.
--- NOTE | 2024-06-01 12:25 | P.DS_ITS ---
Discharge Providers Date of Admission: 05/30/24 14:00 Date of Discharge: June 01, 2024 Attending Provider at Admission: Cornelius Hughes MD Attending Provider at Discharge: Austyn Moe Primary Care Provider: Terry Reyes MD Diagnoses at Discharge Discharge Diagnosis (1) Acute kidney injury superimposed on CKD: Status: Acute (2) Urinary retention: Status: Acute (3) Hyperkalemia: Status: Acute (4) Fall: Status: Acute (5) Rib fracture: Status: Acute (6) Hypertension: Status: Acute (7) Type 2 diabetes mellitus: Status: Acute Reason for Visit Reason for Visit: RIGHT RIB PAIN S/P FALL Hospital Course Hospital Course Aníbal Amaro is a 69 year old male with past medical history type 2 diabetes mellitus, hypertension, diabetic foot who is a correction resident with sister's guardian fell on Saturday while he was trying to change the air fashion in his room. Patient describes the fall as mechanical. Did not hit his head. After the fall he has been complaining of pain on the right side of his chest worsening on taking a deep breath. In the ER he was found to have a rib fracture and urinary retention along with hyperkalemia and MELINDA for which hospitalist service was consulted. Patient denies any nausea vomiting, headache, dizziness, headache, chest pain, dysuria. Patient was sent to the hospital further evaluation and management of MELINDA on CKD, mild hyperkalemia in setting of urinary retention along with a rib fracture in setting of fall. He is started on IV hydration. Weiss catheter was placed. Hyperkalemia resolved. Renal functions are back to baseline. Patient is able to ambulate with the help of walker. He has been discharged back to correction with Weiss catheter in place with advised to follow-up with urology within next 2 weeks on oral Flomax 0.4 mg daily. If his Weiss catheter remains in place for more than 1 month it should be replaced. He is advised to continue with aggressive pulm toilet with incentive spirometry. He should continue getting his pain medications as before along with lidocaine patch for next 1 week. Miralax added for constipation. Please follow-up also regarding fatty liver and left lower abdomen chronic soft tissue mass. Physical Exam Const: COMMON NORMALS: patient oriented x3 and alert GENERAL APPEARANCE: cooperative ORIENTATION/CONSCIOUSNESS: Yes awake HENMT: COMMON NORMALS: oropharynx normal Neck/C-Spine: COMMON NORMALS: no JVD Resp: COMMON NORMALS: normal respiratory effort and clear to auscultation bilaterally AUSCULTATION: clear to auscultation bilaterally Cardio: COMMON NORMALS: no JVD, regular rhythm, S1 normal heart sound present, S2 normal heart sound present and No murmurs present (Cardio) RHYTHM: regular rhythm HEART SOUNDS: S1 normal heart sound present and S2 normal heart sound present GI: COMMON NORMALS: Normal to inspection, nondistended, normoactive bowel sounds present, Soft to palpation and non-tender PALPATION: Yes Soft to palpation OTHER: Abdomen soft, nontender. Painful right side/flank with rib fractures. Left lower abdomen soft tissue mass, he states has been chronic for a very long time. Extremity: COMMON NORMALS: no joint enlargement and no pedal edema Neuro: COMMON NORMALS: patient oriented x3 and moves all extremities SENSORIUM/ORIENTATION: Yes alert Skin: COMMON NORMALS: no rashes or lesions noted GENERAL SKIN EXAM: no rashes or lesions noted Urinary Catheter Management: Weiss: Cath Placed During This Visit: yes Reason for Continuing Indwelling Catheter: Acute Urinary Retention or Obstruction Urinary Catheter Date of Insertion: 05/30/24 Urinary Catheter Time of Insertion: 14:39 Discharge Data Studies Completed and Pending Completed Studies During Hospitalization Category Date Time Status CT kidney stone [id number] Stat Cat Scan 05/30/24 10:19 Completed XR ribs RT mn 3V w CXR1V [id number] Stat Exams 05/30/24 09:01 Completed Radiology Impressions Ribs X-Ray 05/30/24 09:01 IMPRESSION: 1. Low lung volumes with linear atelectasis or scarring at the lung bases. 2. Mild cardiomegaly. Abdomen/Pelvis CT 05/30/24 10:19 IMPRESSION: 1. Partially imaged right 5th and 6 rib fractures. 2. Trace right pleural effusion with linear scarring and/or atelectasis favored at the lung bases. A component of pneumonia at the lung bases cannot be reasonably excluded. 3. Fatty infiltration of the liver. 4. Small to moderate-sized hiatal hernia. 5. Abnormal density within the subcutaneous tissues of the lower anterior abdominal wall. Etiology is uncertain. Recommend clinical correlation. Laboratory Results WBC 7.48 10^3/uL (3.29-11.43) 06/01/24 05:21 RBC 5.25 10^6/uL (3.85-5.65) 06/01/24 05:21 Hgb 15.20 g/dL (11.27-16.99) 06/01/24 05:21 Hct 47.0 % (37-53) 06/01/24 05:21 MCV 89.5 fl (82-101) 06/01/24 05:21 MCH 29.0 pg (27-33) 06/01/24 05:21 MCHC 32.3 g/dL (30-55) 06/01/24 05:21 RDW 12.5 % (12.1-15.1) 06/01/24 05:21 Plt Count 156 10^3/cmm (157-399) L 06/01/24 05:21 MPV 10.4 fL (7.4-10.4) 06/01/24 05:21 Neut % (Auto) 80.1 % 06/01/24 05:21 Lymph % (Auto) 8.7 % 06/01/24 05:21 [place] % (Auto) 8.7 % 06/01/24 05:21 Eos % (Auto) 1.5 % 06/01/24 05:21 Baso % (Auto) 0.7 % 06/01/24 05:21 Neut # (Auto) 6.00 10^3/uL (1.8-7.7) 06/01/24 05:21 Lymph # (Auto) 0.7 10^3/uL (0.8-4.8) L 06/01/24 05:21 [place] # (Auto) 0.7 10^3/uL (0.2-0.9) 06/01/24 05:21 Eos # (Auto) 0.1 10^3/uL (0.0-0.8) 06/01/24 05:21 Baso # (Auto) 0.1 10^3/uL (0.0-0.1) 06/01/24 05:21 Nucleated RBC % (auto) 0 % 06/01/24 05:21 Nucleated RBCs # 0.0 /100WBC 06/01/24 05:21 Sodium 140 mmol/L (136-145) 06/01/24 05:21 Potassium 3.9 mmol/L (3.5-5.1) 06/01/24 05:21 Chloride 106 mmol/L (98-107) 06/01/24 05:21 Carbon Dioxide 22 mmol/L (22-29) 06/01/24 05:21 Anion Gap 15.9 (5-19) 06/01/24 05:21 BUN 25 mg/dL (8-23) H 06/01/24 05:21 Creatinine 1.2 mg/dL (0.7-1.2) 06/01/24 05:21 GFR Calculation 60.4 mL/min (90-130) L 06/01/24 05:21 Glucose 78 mg/dL (65-115) 06/01/24 05:21 POC Glucose 82 mg/dL (70-110) 06/01/24 06:18 Estimat Average Glucose 183 05/31/24 03:11 Hemoglobin A1c 8.0 % (4.0-6.0) H 05/31/24 03:11 Calculated Osmolality 293 mOsm/kg (285-295) 06/01/24 05:21 Calcium 9.3 mg/dL (8.5-10.5) 06/01/24 05:21 Phosphorus 3.0 mg/dL (2.5-4.5) 05/31/24 03:11 Magnesium 1.9 mg/dL (1.7-2.3) 05/31/24 03:11 Iron 86 ug/dL (59-158) 05/30/24 12:25 TIBC 264 mcg/dl 05/30/24 12:25 % Saturation 32.5 % (20-50) 05/30/24 12:25 Unsat Iron Binding 178 ug/dL (112-347) 05/30/24 12:25 Total Bilirubin 0.7 mg/dL (0.15-1.2) 06/01/24 05:21 AST 19 U/L (0-40) 06/01/24 05:21 ALT 19 U/L (0-41) 06/01/24 05:21 Alkaline Phosphatase 60 U/L (40-130) 06/01/24 05:21 Total Protein 7.2 g/dL (6.6-8.7) 06/01/24 05:21 Albumin 3.5 g/dL (3.5-5.2) 06/01/24 05:21 Globulin 3.7 g/dL (1.3-4.6) 06/01/24 05:21 Triglycerides 77 mg/dL (0-150) 05/31/24 03:11 Cholesterol 142 mg/dL (0-200) 05/31/24 03:11 LDL Cholesterol, Calc 87 mg/dL (50-129) 05/31/24 03:11 HDL Cholesterol 40 mg/dL (60-100) L 05/31/24 03:11 LDL/HDL Ratio 2.18 RATIO (0.00-3.22) 05/31/24 03:11 Cholesterol/HDL Ratio 3.55 mg/dL (1.0-5.00) 05/31/24 03:11 Lipase 5 U/L (13-60) L 05/30/24 09:36 Vitamin B12 519 pg/mL (232-1245) 05/30/24 12:25 Folate 18.5 ng/mL (4.5-32.2) 05/31/24 03:11 Procalcitonin 0.18 ng/mL (0-0.5) 05/31/24 03:11 TSH 1.71 uIU/mL (0.27-4.20) 05/30/24 12:25 Urine Color Yellow (Yellow) 05/30/24 12:00 Urine Appearance Clear (CLEAR) 05/30/24 12:00 Urine pH 5 (5-7) 05/30/24 12:00 Ur Specific [place] 1.015 (1.005-1.030) 05/30/24 12:00 Urine Protein Neg (Negative) 05/30/24 12:00 Urine Glucose (UA) 4+ (Normal) H 05/30/24 12:00 Urine Ketones 1+ (Negative) H 05/30/24 12:00 Urine Blood Neg (Negative) 05/30/24 12:00 Urine Nitrate Negative (Negative) 05/30/24 12:00 Urine Bilirubin Neg (Negative) 05/30/24 12:00 Urine Urobilinogen Norm mg/dL (Negative) 05/30/24 12:00 Ur Leukocyte Esterase Negative (Negative) 05/30/24 12:00 Ur Random Sodium 31 mmol/L 05/30/24 12:00 Ur Random Potassium 40 mmol/L 05/30/24 12:00 Ur Random Chloride 24 mmol/L 05/30/24 12:00 Urine Creatinine 90 mg/dL (39-259) 05/30/24 12:00 Vitals Last Vital Signs Temp 97.9 F 06/01/24 08:00 Pulse 91 06/01/24 08:00 Resp 18 06/01/24 08:00 BP 148/78 06/01/24 08:00 Pulse Ox 91 06/01/24 08:00 O2 Del Method Room Air 06/01/24 04:00 Discharge Plan Discharge Patient Disposition: Home Condition: Stable Prescriptions: New tamsulosin 0.4 mg Capsule 0.4 mg PO DAILY Qty: 30 0RF lidocaine 5 % Adhesive Patch,Medicated 1 patch topical [id number] Qty: 15 0RF Miralax 17 gram powder in packet 17 g PO BID Qty: 100 0RF Continued (DME) diabetic shoes with 3 inserts See Rx Instructions .Route .MEDSUPPLY Qty: 1 0RF Rx Instructions: As directed to the shoe guys oxycodone 10 mg tablet 10 mg PO Q8H PRN (Reason: Pain) nifedipine [Procardia XL] 30 mg tablet extended release 24hr 30 mg PO BEDTIME acetaminophen 325 mg Tablet 650 mg PO QID PRN (Reason: Pain) sennosides-docusate sodium [Senokot-S] 8.6-50 mg Tablet 1 tab-cap PO Q12H PRN (Reason: Constipation) magnesium hydroxide [Milk of Magnesia] 400 mg/5 mL Suspension 30 ml PO DAILY PRN (Reason: Constipation) calcium carbonate 500 mg calcium (1,250 mg) Tablet 1,000 mg PO Q4H PRN (Reason: Dyspepsia) bisacodyl 10 mg Suppository 10 mg VT DAILY PRN (Reason: Constipation) ferrous sulfate [Iron (ferrous sulfate)] 325 mg (65 mg iron) Tablet 325 mg PO DAILY ascorbic acid (vitamin C) [Vitamin C] 500 mg Tablet,Chewable 500 mg PO DAILY omeprazole 20 mg Capsule,Delayed Release(Dr/Ec) 20 mg PO DAILY lisinopril [Zestril] 5 mg tablet 5 mg PO BEDTIME nystatin 100,000 unit/gram powder 1 applic TOPICAL BID insulin aspart U-100 100 unit/mL (3 mL) insulin pen See Rx Instructions .ROUTE .COMPLEX Rx Instructions: GIVE 15 UNITS BY SUBCUTANEOUS INJECTION THREE TIMES DAILY. OLD IF BS IS BELOW 140. Systane (PF) 0.4-0.3 % Dropperette 1 drp OPHTHALMIC (EYE) DAILY PRN (Reason: Dry Eyes) insulin glargine [Lantus Solostar U-100 Insulin] 100 unit/mL (3 mL) insulin pen 60 unit SUBCUT BEDTIME Eucerin Cream 1 applic TOPICAL DAILY PRN (Reason: IRRITATION) Lactobacillus acidoph-L.bulgar [Floranex] 1 million cell Tablet 1 tab PO TID dapagliflozin propanediol [Farxiga] 10 mg tablet 10 mg PO DAILY Farxiga 10 mg tablet 10 mg PO DAILY Discharge Orders: Discharge Order (Routine); Ordered 06/01/24 Ordered By: Austyn Moe Referrals: [facility] [Outside] Reji Suazo [Referring] - 2 weeks (Urinary Retention We have notified your physician's clinic of the need for a follow-up appointment to be scheduled. If you have not heard from them within the next 2 business days, please call them directly. SENT REFERRAL THEY WILL CALL YOU WITH APPOINTMENT) Terry Reyes MD [Primary Care Provider] - 06/08/24 1:00 pm (Please contact Dr. Reyes for a follow up appointment within 1 week of discharge.) Discharge Diet: Cardiac and Diabetic Discharge Activity: Resume usual activity and Increase activity as tolerated Patient Instructions: Tamsulosin (By mouth), Lidocaine Patch (On the skin), Weiss Catheter Placement and Care (GEN), Opioid Safety Activity Restrictions/Additional Instructions: Continue with aggressive pulmonary toilet with incentive spirometry. Follow-up with urology within next 2 weeks. If Weiss catheter remains in place for more than 1 month it should be replaced. Discharge Attestations Time Spent in Discharge Care*: greater than 30 min Status at Discharge: Cognitive status at discharge: cognitively intact , Behavioral status at discharge: cooperative , Functional status at discharge: uses cane/walker , Overall status at discharge: patient is progressing back to baseline Quality Metrics Clinical Quality Measures [ No reported AMI, CVA or VTE this stay] Coding Level of Care Code 12205 Total time (in minutes) for Discharge: 40 Diagnoses Acute kidney injury superimposed on CKD N17.9; N18.9 Urinary retention R33.9 Hyperkalemia E87.5 Fall W19.XXXA Rib fracture S22.39XA Hypertension I10 Type 2 diabetes mellitus E11.9
== END 2024-06-01 13:16 | disposition skilled nursing facility (03) ==
LOC: ER 09:26 → MEDSURG 16:21
PROVIDERS: Admitting Provider Student in an Organized Health Care Education/Training Program; Emergency Provider Family Medicine; PCP Family Medicine; Visit Provider Internal Medicine
DX: E11.22 Type 2 diabetes mellitus with diabetic chronic kidney disease (principal); I12.9 Hypertensive chronic kidney disease with stage 1 through stage 4 chronic kidney disease, or unspecified chronic kidney disease; N18.9 Chronic kidney disease, unspecified; N17.9 Acute kidney failure, unspecified; R33.9 Retention of urine, unspecified; E87.5 Hyperkalemia; S22.41XA Multiple fractures of ribs, right side, initial encounter for closed fracture; W19.XXXA Unspecified fall, initial encounter; K59.00 Constipation, unspecified; K76.0 Fatty (change of) liver, not elsewhere classified; J90 Pleural effusion, not elsewhere classified; K44.9 Diaphragmatic hernia without obstruction or gangrene
CPT/HCPCS: 36415; 36416; 51702; 51798; 71101; 74176; 80048; 80053; 80061; 81003; 82436; 82570; 82607; 82746; 82962; 83036; 83540; 83550; 83690; 83735; 84100; 84132; 84133; 84145; 84300; 84443; 85025; 93005; 94640; 94664; 96372; 96374; 96375; 96376; 97161; 97530; 99285; G0378; J1644; J1815; J2270; J2405; J3490; J7030; J7060; J7613

== ENCOUNTER → 2024-09-08 08:30 | Outpatient (BNVA) | payer MEDICARE, SELFPAY | PROVIDERS: PCP Family Medicine; Visit Provider Podiatrist Foot & Ankle Surgery | DX: L60.3 Nail dystrophy (principal); L84 Corns and callosities; Z89.421 Acquired absence of other right toe(s); G62.9 Polyneuropathy, unspecified; Z86.31 Personal history of diabetic foot ulcer; E11.42 Type 2 diabetes mellitus with diabetic polyneuropathy; Z79.4 Long term (current) use of insulin | CPT/HCPCS: 11056; 11721 ==

== ENCOUNTER → 2024-11-24 06:56 | Outpatient (BNVA) | payer MEDICARE, SELFPAY | PROVIDERS: PCP Family Medicine; Visit Provider Podiatrist Foot & Ankle Surgery | DX: L60.3 Nail dystrophy (principal); L84 Corns and callosities; Z89.421 Acquired absence of other right toe(s); G62.9 Polyneuropathy, unspecified; Z86.31 Personal history of diabetic foot ulcer; E11.42 Type 2 diabetes mellitus with diabetic polyneuropathy; Z79.4 Long term (current) use of insulin | CPT/HCPCS: 11721 ==

== ENCOUNTER 2024-12-04 13:51 | Observation (INO) | payer MEDICARE, SELFPAY ==
[2024-12-04 14:00] VITALS: BP 159/82; PULSE 90; RESP 17; TEMP 36.9; O2SAT 96; BMI 27.2
[2024-12-04 17:34] LABS: Basophils # 0.1 10^3/uL (0.0-0.1); Basophils % 0.4 %; Eosinophils % 0.3 %; Hematocrit 53.7 % (37-53); Lymphocytes # 0.9 10^3/uL (0.8-4.8); Lymphocytes % 6.6 %; Mean Corpuscular Hemoglobin 29.1 pg (27-33); Mean Corpuscular Volume 88.2 fl (82-101); Mean Platelet Volume 10.2 fL (7.4-10.4); Monocytes % 7.6 %; Neutrophils # 11.37 10^3/uL (1.8-7.7); Neutrophils % 84.7 %; Nucleated Red Blood Cells % 0 %; Platelet Count 229 10^3/cmm (157-399); Red Blood Count 6.09 10^6/uL (3.85-5.65); Red Cell Distribution Width 12.9 % (12.1-15.1); White Blood Count 13.43 10^3/uL (3.29-11.43)
[2024-12-04 18:00] LABS: Lactic Sepsis W/Reflex 1.3 mmol/L (0.5-2.2)
[2024-12-04 18:01] LABS: Alanine Aminotransferase 25 U/L (0-41); Albumin Level 4.3 g/dL (3.5-5.2); Alkaline Phosphatase 76 U/L (40-130); Anion Gap 19.7 (5-19); Aspartate Amino Transferase 21 U/L (0-40); Blood Urea Nitrogen 38 mg/dL (8-23); C Reactive Protein 36.6 mg/L (0.0-4.9); Calcium 10.6 mg/dL (8.5-10.5); Carbon Dioxide 21 mmol/L (22-29); Chloride 98 mmol/L (98-107); Creatinine Clr Calc Pharmacy 61.0464; Globulin 4.3 g/dL (1.3-4.6); Glomerular Filtration Rate 55.1 mL/min (90-130); Glucose 175 mg/dL (65-115); Lipase 6 U/L (13-60); Osmolality Calculated 291 mOsm/kg (285-295); Potassium 4.7 mmol/L (3.5-5.1); Sodium 134 mmol/L (136-145); Total Bilirubin 0.8 mg/dL (0.15-1.2); Total Protein 8.6 g/dL (6.6-8.7)
[2024-12-04 19:55] LABS: Glucose Point of Care 179 mg/dL (70-110)
--- NOTE | 2024-12-04 20:22 | CTR_ITS ---
PROCEDURE INFORMATION: Exam: CT Abdomen And Pelvis With Contrast Exam date and time: 12/04/2024 9:17 PM Age: 69 years old Clinical indication: Abdominal pain; Localized; Right lower quadrant (rlq); Patient HX: Rlq pain with n/v; Additional info: Lower abd pain, nausea/vomiting TECHNIQUE: Imaging protocol: Computed tomography of the abdomen and pelvis with contrast. Radiation optimization: All CT scans at this facility use at least one of these dose optimization techniques: automated exposure control; mA and/or kV adjustment per patient size (includes targeted exams where dose is matched to clinical indication); or iterative reconstruction. Contrast material: OMNI 350; Contrast volume: 100 ml; Contrast route: INTRAVENOUS (IV); COMPARISON: CT kidney stone [id number] 05/30/2024 10:27 AM RADIATION DOSE METRICS: Total DLP (mGy-cm): 764.64 FINDINGS: Liver: Normal. No mass. Gallbladder and biliary ducts: Normal. No calcified stones. No ductal dilation. Pancreas: Normal. No ductal dilation. Spleen: Normal. No splenomegaly. Adrenal glands: Normal. No mass. Kidneys and ureters: Normal. No hydronephrosis. Stomach and bowel: Unremarkable. No obstruction. No mucosal thickening. Appendix: Acute appendicitis. The appendix is enlarged measuring up to 13 mm in diameter with adjacent fat stranding. Intraperitoneal space: Unremarkable. No free air. No significant fluid collection. Vasculature: Unremarkable. No abdominal aortic aneurysm. Lymph nodes: Unremarkable. No enlarged lymph nodes. Urinary bladder: Unremarkable as visualized. Reproductive: Unremarkable as visualized. Bones/joints: Unremarkable. No acute fracture. Soft tissues: Irregular soft tissue densities in the subcutaneous fat of the anterior pelvis measuring approximately 8.7 x 2.6 cm on the left and 7.8 x 1.6 cm on the right (series 3, image 63). CT/CT abdomen pelvis w con* [id number] IMPRESSION: Acute appendicitis. The appendix is enlarged measuring up to 13 mm in diameter with adjacent fat stranding. No abscess. Impression.
--- NOTE | 2024-12-04 20:28 | ED_ITS ---
HPI - Abdominal Pain 2 General: Chief Complaint: Abdominal Pain Stated Complaint: abdominal pain Time Seen by Provider: 12/04/24 17:56 Source: patient Mode of arrival: ambulatory Limitations: no limitations History of Present Illness: Patient is a 69-year-old male past medical history of diabetes and hypertension who presents the emergency department complaining of lower abdominal pain for the past 3 days. States it is a sharp sensation, has severely worsened today. Denies any bowel or bladder changes. Does report some nausea and vomiting. Denies history of gastroparesis, diverticulitis, or major abdominal surgery. He does note history of kidney stones and states he has had lithotripsy procedure before. No recent exotic foods. No extremely foul-smelling stools. He is not reporting any fever, currently afebrile here in the emergency department vitals unremarkable. Does not report taking anything for his symptoms. Does not report any specific alleviating or exacerbating factors. MD elicited complaint: abdominal pain Pertinent past history: kidney stones Onset (ago): day(s) (3) Pain Consistency: constant Location: RLQ and LLQ Severity: moderate Quality: sharp Radiation: none Migration to: no migration Exacerbating factors: nothing Relieving factors: nothing Associated Symptoms: Reports nausea and vomiting; Denies bloating, change in stool character, chills, constipation, diarrhea, dysuria, fever(s) and hematochezia Related Data Home Medications Medication Instructions Recorded Confirmed oxycodone 10 mg tablet 10 mg PO Q8H PRN Pain 05/18/23 11/24/24 Lactobacillus acidoph-L.bulgaricus 1 tab PO TID 02/25/24 11/24/24 1 million cell tablet (Floranex) acetaminophen 325 mg tablet 650 mg PO QID PRN Pain 02/25/24 11/24/24 ascorbic acid (vitamin C) 500 mg 500 mg PO DAILY 02/25/24 11/24/24 chewable tablet (Vitamin C) bisacodyl 10 mg rectal suppository 10 mg [place] DAILY PRN Constipation 02/25/24 11/24/24 calcium carbonate 1,000 mg PO Q4H PRN Dyspepsia 02/25/24 11/24/24 dapagliflozin propanediol 10 mg 10 mg PO DAILY 02/25/24 11/24/24 tablet (Farxiga) ferrous sulfate 325 mg (65 mg 325 mg PO DAILY 02/25/24 11/24/24 iron) tablet (Iron (ferrous sulfate)) insulin aspart U-100 100 unit/mL See Rx Instructions .Route .COMPLEX 02/25/24 11/24/24 (3 mL) subcutaneous pen insulin glargine 100 unit/mL (3 60 unit SUBCUT BEDTIME 02/25/24 11/24/24 mL) subcutaneous pen (Lantus Solostar U-100 Insulin) lanolin alcohols-mineral 1 applic topical DAILY PRN 02/25/24 11/24/24 oil-w.petrolatum-ceresin topical IRRITATION cream (Eucerin topical cream) lisinopril 5 mg tablet (Zestril) 5 mg PO BEDTIME 02/25/24 11/24/24 magnesium hydroxide 400 mg/5 mL 30 ml PO DAILY PRN Constipation 02/25/24 11/24/24 oral suspension (Milk of Magnesia) nifedipine 30 mg tablet,extended 30 mg PO BEDTIME 02/25/24 11/24/24 release 24 hr (Procardia XL) nystatin 100,000 unit/gram topical 1 applic topical BID 02/25/24 11/24/24 powder omeprazole 20 mg capsule,delayed 20 mg PO DAILY 02/25/24 11/24/24 release peg 400-propylene glycol (PF) 0.4 1 drp ophthalmic (eye) DAILY PRN 02/25/24 11/24/24 %-0.3 % eye drops in a dropperette Dry Eyes (Systane (PF)) sennosides 8.6 mg-docusate sodium 1 tab-cap PO Q12H PRN Constipation 02/25/24 11/24/24 50 mg tablet (Senokot-S) dapagliflozin propanediol 10 mg 10 mg PO DAILY 05/30/24 11/24/24 tablet (Farxiga) Previous Rx's Medication Instructions Recorded diabetic shoes with 3 inserts #1 ea 01/09/24 lidocaine 5 % topical patch 1 patch topical [id number] #15 ea 05/31/24 tamsulosin 0.4 mg capsule 0.4 mg PO DAILY #30 caps 05/31/24 polyethylene glycol 3350 17 gram 17 g PO BID #100 ea 06/01/24 oral powder packet (Miralax) Allergies Allergy/AdvReac Type Severity Reaction Status Date / Time sulfamethoxazole Allergy ALGY-Rash Verified 11/24/24 06:59 [From Bactrim] trimethoprim [From Bactrim] Allergy ALGY-Rash Verified 11/24/24 06:59 Review of Systems 2 General: Reports: 10 or more systems reviewed and unremarkable except in HPI and below Const: Denies: fever(s), chills, change in appetite, change in weight or diaphoresis ENMT: Denies: throat pain or hoarseness Card: Denies: chest pain, palpitations or lightheadedness Resp: Denies: dyspnea, productive cough or wheezing GI: Reports: abdominal pain, nausea and vomiting; Denies: diarrhea, constipation, bloating, change in stool character or hematochezia : Denies: flank pain, difficulty urinating, dysuria, urinary frequency or urinary urgency Musc: Denies: neck pain or back pain Skin/Breast: Denies: rash or new lesions Neuro: Denies: headache(s) or dizziness PFSH ED 2 PFSH: Medical History Hypertension History of diabetic ulcer of foot Osteomyelitis Diabetes Surgical History Status post amputation of toe of right foot Social History Smoking and tobacco/nicotine status: never used tobacco/nicotine Physical Exam 2 Const: COMMON NORMALS: no acute distress, average body habitus, patient oriented x3, no limitations, healthy appearing, alert and well nourished G ENERAL APPEARANCE: cooperative and comfortable ORIENTATION/CONSCIOUSNESS: Yes awake HENMT: COMMON NORMALS: normocephalic, atraumatic and moist oral mucous membranes HEAD & SCALP: normocephalic and atraumatic Eye: COMMON NORMALS: Equal, round and reactive pupils present, EOMs intact bilaterally and conjunctivae normal CONJUNCTIVA: Yes conjunctivae normal P UPIL: Yes Equal, round and reactive pupils present Neck/C-Spine: COMMON NORMALS: full ROM, supple, no meningeal signs and no JVD Resp: COMMON NORMALS: normal respiratory effort, No retractions, No use of accessory muscles and clear to auscultation bilaterally AUSCULTATION: clear to auscultation bilaterally, no crackles, no rales, no rhonchi and no wheezes Cardio: COMMON NORMALS: no JVD, regular rate, regular rhythm, S1 normal heart sound present, S2 normal heart sound present, No gallops present (Cardio), No clicks present (Cardio), No murmurs present (Cardio), No rub (Cardio) and Peripheral pulses 2+ throughout RATE: regular rate RHYTHM: regular rhythm HEART SOUNDS: S1 normal heart sound present and S2 normal heart sound present PERIPHERAL PULSES: Peripheral pulses 2+ throughout GI: COMMON NORMALS: Normal to inspection, nondistended, normoactive bowel sounds present, Soft to palpation, No hepatosplenomegaly present and no masses AUSCULTATION: Yes normoactive bowel sounds PALPATION: Yes Soft to palpation, Yes Tenderness to palpation present (GI) Details: LLQ, RLQ and RUQ, No Guarding due to palpation present (GI), No Rigid due to palpation and Yes No hepatosplenomegaly present RECTAL EXAM: Yes deferred : COMMON NORMALS: Yes no CVA tenderness BLADDER/KIDNEY EXAM: Yes no CVA tenderness Back/Pelvis: COMMON NORMALS: no CVA tenderness Extremity: COMMON NORMALS: normal to inspection and full ROM Neuro: COMMON NORMALS: patient oriented x3, moves all extremities, no focal motor deficits and no sensory deficits noted SENSORIUM/ORIENTATION: Yes alert MENINGEAL SIGNS: Yes no meningeal signs Psych: COMMON NORMALS: mental status grossly normal, cooperative and speech normal SPEECH: Yes normal speech Skin: COMMON NORMALS: no rashes or lesions noted GENERAL SKIN EXAM: no rashes or lesions noted Course 2 Vital Signs: Vital signs: Vital Signs Temperature 98.5 F 12/04/24 14:00 Pulse Rate 78 12/04/24 21:25 Respiratory Rate 18 12/04/24 21:26 Blood Pressure 174/89 12/04/24 21:25 Pulse Oximetry 97 12/04/24 21:25 Oxygen Delivery Me thod Room Air 12/04/24 21:25 MDM - Abdominal Pain Medical Decision Making Patient presented with abdominal pain for the past few days. Diffuse abdominal tenderness to palpation. Vitals have been unremarkable, afebrile although his blood pressure has been creeping up. Slight elevation in white count, he is diabetic blood sugar was 175 by metabolic panel. On CT, evidence of acute appendicitis without perforation or abscess. Spoke with on-call general surgeon, Dr. Mccann, who accepts the patient and will take him to surgery in the morning. Recommending Zosyn and Toradol at this time, patient rechecked stating his pain is in control after receiving morphine here. Dr. Moses putting in admit orders at this time. Lab Data 12/04/24 17:14 12/04/24 17:14 Labs/Radiology: Radiology Impressions Abdomen/Pelvis CT 12/04/24 20:22 IMPRESSION: Acute appendicitis. The appendix is enlarged measuring up to 13 mm in diameter with adjacent fat stranding. No abscess. Impression. ADDENDUM: 12/04/24 9118 THIS REPORT CONTAINS FINDINGS THAT MAY BE CRITICAL TO PATIENT CARE. The findings were verbally communicated via telephone conference with TAY REED at 10:26 PM SOFTWARE RECRUITER on 12/04/2024. The findings were acknowledged and understood. Laboratory Results WBC 13.43 10^3/uL (3.29-11.43) H 12/04/24 17:14 RBC 6.09 10^6/uL (3.85-5.65) H 12/04/24 17:14 Hgb 17.70 g/dL (11.27-16.99) H 12/04/24 17:14 Hct 53.7 % (37-53) H 12/04/24 17:14 MCV 88.2 fl (82-101) 12/04/24 17:14 MCH 29.1 pg (27-33) 12/04/24 17:14 MCHC 33.0 g/dL (30-55) 12/04/24 17:14 RDW 12.9 % (12.1-15.1) 12/04/24 17:14 Plt Count 229 10^3/cmm (157-399) 12/04/24 17:14 MPV 10.2 fL (7.4-10.4) 12/04/24 17:14 Neut % (Auto) 84.7 % 12/04/24 17:14 Lymph % (Auto) 6.6 % 12/04/24 17:14 Douglas % (Auto) 7.6 % 12/04/24 17:14 Eos % (Auto) 0.3 % 12/04/24 17:14 Baso % (Auto) 0.4 % 12/04/24 17:14 Neut # (Auto) 11.37 10^3/uL (1.8-7.7) H 12/04/24 17:14 Lymph # (Auto) 0.9 10^3/uL (0.8-4.8) 12/04/24 17:14 Douglas # (Auto) 1.0 10^3/uL (0.2-0.9) H 12/04/24 17:14 Eos # (Auto) 0.0 10^3/uL (0.0-0.8) 12/04/24 17:14 Baso # (Auto) 0.1 10^3/uL (0.0-0.1) 12/04/24 17:14 Nucleated RBC % (auto) 0 % 12/04/24 17:14 Nucleated RBCs # 0.0 /100WBC 12/04/24 17:14 Sodium 134 mmol/L (136-145) L 12/04/24 17:14 Potassium 4.7 mmol/L (3.5-5.1) 12/04/24 17:14 Chloride 98 mmol/L (98-107) 12/04/24 17:14 Carbon Dioxide 21 mmol/L (22-29) L 12/04/24 17:14 Anion Gap 19.7 (5-19) H 12/04/24 17:14 BUN 38 mg/dL (8-23) H 12/04/24 17:14 Creatinine 1.3 mg/dL (0.7-1.2) H 12/04/24 17:14 GFR Calculation 55.1 mL/min (90-130) L 12/04/24 17:14 Glucose 175 mg/dL (65-115) H 12/04/24 17:14 POC Glucose 179 mg/dL (70-110) H 12/04/24 19:50 Calculated Osmolality 291 mOsm/kg (285-295) 12/04/24 17:14 Lactic Acid 1.3 mmol/L (0.5-2.2) 12/04/24 17:14 Calcium 10.6 mg/dL (8.5-10.5) H 12/04/24 17:14 Total Bilirubin 0.8 mg/dL (0.15-1.2) 12/04/24 17:14 AST 21 U/L (0-40) 12/04/24 17:14 ALT 25 U/L (0-41) 12/04/24 17:14 Alkaline Phosphatase 76 U/L (40-130) 12/04/24 17:14 C-Reactive Protein 36.6 mg/L (0.0-4.9) H 12/04/24 17:14 Total Protein 8.6 g/dL (6.6-8.7) 12/04/24 17:14 Albumin 4.3 g/dL (3.5-5.2) 12/04/24 17:14 Globulin 4.3 g/dL (1.3-4.6) 12/04/24 17:14 Lipase 6 U/L (13-60) L 12/04/24 17:14 All radiology interpretation(s) finalized by discharge Discharge Plan Discharge Patient Disposition: Admitted As Inpatient Admit Provider: Tay Mccann Clinical Impression: Acute appendicitis Condition: Stable Coding Level of Care Code ED Unit Clerk for Katya Pickard
[2024-12-04] MEDS: iohexol 350 mg/mL 500 mL Btl (per mL) IV (21:19)
[2024-12-04 21:25] VITALS: BP 174/89; PULSE 78; O2SAT 97
[2024-12-04 21:26] VITALS: RESP 18
[2024-12-04] MEDS: ondansetron 2 mg/ML SDV 2 mL 4 MG IVP (21:26)
[2024-12-04] MEDS: morphine 4 mg/mL SDV 1 mL IVP (21:26)
[2024-12-04] MEDS: ketorolac 30 mg/mL INJ IVP (22:41)
[2024-12-04] MEDS: piperacillin-tazobactam 3.375 GM in sodium chloride 0.9% (plus) 50 ML IV (22:41)
[2024-12-04 22:50] VITALS: BP 174/94; PULSE 113; O2SAT 93
[2024-12-05] VITALS (21 sets, daily range): BP systolic 121–168; BP diastolic 64–99; PULSE 63–111; RESP 13–21; TEMP 36.3–37; O2SAT 90–96; BMI 28.4
[2024-12-05] MEDS: sodium chloride 0.9% 1,000 ML 100 ML IV ×2 (00:20→19:53)
[2024-12-05] MEDS: piperacillin-tazobactam 3.375 GM in sodium chloride 0.9% (plus) 50 ML IV ×3 (05:54→21:33)
[2024-12-05 06:49] LABS: Glucose Point of Care 249 mg/dL (70-110)
--- NOTE | 2024-12-05 07:15 | P.HP_ITS ---
Providers/Chief Complaint 2 Admitting Physician: Tay Mccann MD Primary Care Provider: Terry Reyes MD Chief Complaint: abdominal pain History of Present Illness Aníbal Amaro is a 69 year old male who presents to the hospital with 3 days of abdominal pain mainly in the lower abdomen, associated with nausea and vomiting and chills. Workup in the ER show evidence of a slightly increased white count and a CT scan show acute appendicitis without perforation Review of Systems 2 General: Reports: 10 or more systems reviewed and unremarkable except in HPI and below Medications/Allergies Home Medications Medication Instructions Recorded Confirmed Last Taken Type oxycodone 10 mg tablet 10 mg PO Q8H PRN Pain 05/18/23 11/24/24 02/24/24 History diabetic shoes with 3 inserts #1 ea 01/09/24 11/24/24 Unknown Rx Lactobacillus acidoph-L.bulgaricus 1 tab PO TID 02/25/24 11/24/24 02/25/24 History 1 million cell tablet (Floranex) acetaminophen 325 mg tablet 650 mg PO QID PRN Pain 02/25/24 11/24/24 Unknown History ascorbic acid (vitamin C) 500 mg 500 mg PO DAILY 02/25/24 11/24/24 02/25/24 History chewable tablet (Vitamin C) bisacodyl 10 mg rectal suppository 10 mg [place] DAILY PRN Constipation 02/25/24 11/24/24 Unknown History calcium carbonate 1,000 mg PO Q4H PRN Dyspepsia 02/25/24 11/24/24 Unknown History dapagliflozin propanediol 10 mg 10 mg PO DAILY 02/25/24 11/24/24 02/25/24 History tablet (Farxiga) ferrous sulfate 325 mg (65 mg 325 mg PO DAILY 02/25/24 11/24/24 02/25/24 History iron) tablet (Iron (ferrous sulfate)) insulin aspart U-100 100 unit/mL See Rx Instructions .Route .COMPLEX 02/25/24 11/24/24 02/25/24 History (3 mL) subcutaneous pen insulin glargine 100 unit/mL (3 60 unit SUBCUT BEDTIME 02/25/24 11/24/24 02/24/24 History mL) subcutaneous pen (Lantus Solostar U-100 Insulin) lanolin alcohols-mineral 1 applic topical DAILY PRN 02/25/24 11/24/24 Unknown History oil-w.petrolatum-ceresin topical IRRITATION cream (Eucerin topical cream) lisinopril 5 mg tablet (Zestril) 5 mg PO BEDTIME 02/25/24 11/24/24 02/24/24 History magnesium hydroxide 400 mg/5 mL 30 ml PO DAILY PRN Constipation 02/25/24 11/24/24 Unknown History oral suspension (Milk of Magnesia) nifedipine 30 mg tablet,extended 30 mg PO BEDTIME 02/25/24 11/24/24 02/24/24 History release 24 hr (Procardia XL) nystatin 100,000 unit/gram topical 1 applic topical BID 02/25/24 11/24/24 02/25/24 History powder omeprazole 20 mg capsule,delayed 20 mg PO DAILY 02/25/24 11/24/24 02/25/24 History release peg 400-propylene glycol (PF) 0.4 1 drp ophthalmic (eye) DAILY PRN 02/25/24 11/24/24 Unknown History %-0.3 % eye drops in a dropperette Dry Eyes (Systane (PF)) sennosides 8.6 mg-docusate sodium 1 tab-cap PO Q12H PRN Constipation 02/25/24 11/24/24 Unknown History 50 mg tablet (Senokot-S) dapagliflozin propanediol 10 mg 10 mg PO DAILY 05/30/24 11/24/24 Unknown History tablet (Farxiga) lidocaine 5 % topical patch 1 patch topical [id number] #15 ea 05/31/24 11/24/24 Unknown Rx tamsulosin 0.4 mg capsule 0.4 mg PO DAILY #30 caps 05/31/24 11/24/24 Unknown Rx polyethylene glycol 3350 17 gram 17 g PO BID #100 ea 06/01/24 11/24/24 Unknown Rx oral powder packet (Miralax) Allergies Allergy/AdvReac Type Severity Reaction Status Date / Time sulfamethoxazole Allergy ALGY-Rash Verified 11/24/24 06:59 [From Bactrim] trimethoprim [From Bactrim] Allergy ALGY-Rash Verified 11/24/24 06:59 PFSH Acute 2 PFSH: Medical History Hypertension History of diabetic ulcer of foot Osteomyelitis Diabetes Surgical History Status post amputation of toe of right foot Social History Smoking and tobacco/nicotine status: never used tobacco/nicotine Vitals/I&O/Wt Last Vital Signs Temp 98.1 F 12/05/24 06:54 Pulse 81 12/05/24 06:54 Resp 18 12/05/24 06:54 BP 152/82 12/05/24 06:54 Pulse Ox 93 12/05/24 06:54 O2 Del Method Room Air 12/05/24 06:54 12/04/24 12/05/24 12/05/24 22:59 06:59 14:59 Intake Total 50 / 50 Balance 50 / 50 Weight last 48 hrs Weight 198 lb Weight 190 lb Physical Exam 2 Narrative: General : Patient is well developed , no acute distress, oriented x3 Head : Normal cephalic, a-traumatic. Nose : Mucous membranes are without erythema. Lungs : Equal chest rise bilaterally, no use of accessory muscles, trachea is midline. CV : Rate and rhythm are normal. Abdomen : Soft, there is tenderness to palpation in the right lower quadrant Extremities : No edema. Upper extremities are normal bilaterally. Back : non-tender to palpation, no CVA tenderness. Data 12/04/24 17:14 12/04/24 17:14 A&P Assessment and plan (1) Acute appendicitis: Qualifiers: Acute appendicitis type: unspecified acute appendicitis type Qualified Code(s): K35.80 - Unspecified acute appendicitis Plan After complete history, physical examination and review of all available clinical data the following is my assessment. This a patient with multiple medical comorbidities who presents with acute appendicitis. After discussion of all recent benefits as documented below for a laparoscopic possible open appendectomy. I discussed the risk of bleeding and infection, resulting abscess formation, risk of injury to the adjacent structures including the colon and the small bowel great vessels of the pelvis urinary bladder and ureter. I discussed the need of additional interventions, conversion to open procedure, drain placement, prolonged hospital stay. Patient shows understanding agrees with the plan. In the interim patient will be started on Zosyn every 8 hours. Attestations 2 Medical Necessity Statement*: Possible discharge after surgery Coding Level of Care Code Acute Code for [facility] Fwd Diagnoses Acute appendicitis K35.80 Acute appendicitis type: unspecified acute appendicitis type
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
[2024-12-05] MEDS: insulin regular-human 100 units/1 mL 5 UNIT IVP (07:50)
--- NOTE | 2024-12-05 08:31 | PC.PHAR ---
patient is from [facility]
[2024-12-05] MEDS: BUPivacaine 0.25% INJ 30 mL INJECTION (08:32)
[2024-12-05] MEDS: lidocaine-epi 1% 20 mL INJ INJECTION (08:33)
--- NOTE | 2024-12-05 08:58 | P.OP_ITS ---
Operative Report Date of procedure: December 05, 2024 Pre-op diagnosis: Acute appendicitis Post-op diagnosis: Same Post-op findings: Inflamed appendix, significant ROBERTA appendiceal fat inflammation. No significant fluid collections Procedure done: Laparoscopic appendectomy Specimens removed/disposition: Appendix Surgeon: Tay Mccann MD Avionics Electrical Engineer: ÁNGELA OR Staff Estimated blood loss: 10 Complications: None Brief History: 69-year-old male who presented to the hospital with acute appendicitis after discussion we will resume benefits documented my preop note we presented to the OR for laparoscopic possible open appendectomy. Procedure: Patient was brought into the OR, he was placed in a supine position. General anesthesia was given. The abdomen was prepped and draped in the usual sterile fashion. A timeout was conducted. The abdomen was accessed in the left upper quadrant without Optiview trocar measuring 5 mm. Initial pneumoperitoneum was obtained, no evidence of visceral injury during entry was noted. Additional 12 mm trocar was placed in the supraumbilical position under direct visualization, a 5 mm trocar was placed in the suprapubic position under direct visualization. Patient was placed in steep Trendelenburg with the left side down. I then proceeded to then divide appendix and right lower quadrant, there was significant formation of periappendiceal fat and adhesions from the fat to the terminal ileum that were bluntly taken down. I then used the LigaSure to take down the mesoappendix to the base of the appendix. The appendix appeared slightly inflamed at the base but no evidence of perforation. I then proceeded to transect the appendix with a 45 mm blue load endo ELIANE stapler at the level of the base. The specimen was retrieved via the umbilical trocar site. I then proceeded to evaluate the appendiceal bed, no evidence of bleeding was noted, the staple line appear hemostatic healthy. Patient was placed in a level position and I used the omentum to wrap around the area where the appendix was located. Umbilical trocar site was then closed with #0 Vicryl using Matthew- Mayank suture passer under direct visualization. Suprapubic trocar was then removed under direct visualization. The left upper quadrant trocar was used to evacuate the pneumoperitoneum and subsequently removed. The wounds were closed in layers with #3-0 Vicryl for the subcutaneous tissue #4 Monocryl for the skin and Dermabond was applied. At the end of the procedure all counts were correct the patient tolerated well the procedure was transferred to PACU in stable condition.
[2024-12-05 09:29] LABS: Glucose Point of Care 243 mg/dL (70-110)
--- NOTE | 2024-12-05 10:01 | PC.NURSE ---
0956 - returned to room 272 per this nurse with REGGIE Carter at [facility] c/d/i - v/s 156/89 P 87 - 02 92% RA - temp 97.9 - no distress noted upon this nurse leaving room
[2024-12-05 10:06] LABS: Glucose Point of Care 246 mg/dL (70-110)
[2024-12-05] MEDS: tamsulosin 0.4 mg Capsule PO (10:29)
[2024-12-05] MEDS: ondansetron 4 MG Tablet 8 MG PO (10:29)
[2024-12-05] MEDS: acetaminophen 325 mg Tablet 650 MG PO ×3 (10:29→21:34)
--- NOTE | 2024-12-05 11:07 | PC.CHAP ---
Pastoral Care Encounter/Spiritual Assessment Type of Contact [] Declined site medical director visit [] Patient/Family/Request visit [] Outpatient visit [] Follow-up visit [] Physician referral [] Code/Alert [] Routine visit [] Staff referral [] Actively dying [] Patient sleeping [] Family support [] [x] Out of room [] Palliative care [] [] Receiving care in room [] Pre-surgical visit [] Trauma [] Long length of stay [] ICU visit [] Other: Relational/Emotional Strength [] Patient feels connected with others/family/visitors/staff [] Distress [] Loneliness/isolation [] Abandonment Spirituality of Patient [] Person of Divina [] Attends Taoism of their Divina [] Believes in Prayer [] Reads Bible or Episcopal materials [] There are Spiritual issues to be addressed Heavy Equipment Sales Manager Interventions [] Prayer [] Active listening [] Non-anxious presence [] Spiritual/emotional support [] Crisis/trauma care [] Spiritual counseling [] Bereavement support [] Provided bereavement packet [] Provided Bible/devotional materials [] Provided toy/stuffed animal, coloring book to patient or family member [] Provided Communion [] Anointing/[place] [] Salvation [] Completed spiritual assessment [] Other: Impact on Illness or Injury [] Angry [] Fearful [] Anxious [] Often cries [] Exhaustion [] Unable to work [] Unable to attend mosque [] Unable to walk/stand [] Unable to read [] Unable to drive [] Unable to eat/drink [] Unable to sleep [] Unable to be with family [] Patient intubated [] Other: Summary Time spent with patient
[2024-12-05] MEDS: insulin lispro 100 unit/1 mL SUBCUT ×3 (11:31→21:33)
[2024-12-05] MEDS: oxyCODONE 5 mg IR Tab/Cap 10 MG PO ×2 (11:32→17:49)
--- NOTE | 2024-12-05 12:15 | PM.PN ---
Subjective Subjective: Patient is postoperative day 0 status post laparoscopic appendectomy for acute appendicitis. Patient is doing okay complains some abdominal pain and nausea, was able to ambulate and urinate after surgery. States that he does not feel in good condition to be able to transition to the outpatient setting. Vitals/I&O/Wt Last Vital Signs Temp 97.9 F 12/05/24 09:57 Pulse 87 12/05/24 09:57 Resp 16 12/05/24 11:32 BP 156/89 12/05/24 09:57 Pulse Ox 92 12/05/24 09:57 O2 Del Method Room Air 12/05/24 09:57 O2 Flow Rate 8 12/05/24 09:22 12/04/24 12/05/24 12/05/24 22:59 06:59 14:59 Intake Total 50 / 50 1200 / 1200 Output Total 5 / 5 Balance 50 / 50 1195 / 1195 Weight last 48 hrs Weight 198 lb Weight 190 lb Physical Exam GI: OTHER: Abdomen is soft, appropriately tender to palpation surgical incisions are covered with dressing. Data 12/04/24 17:14 12/04/24 17:14 A&P Assessment and plan (1) Acute appendicitis: Qualifiers: Acute appendicitis type: unspecified acute appendicitis type Qualified Code(s): K35.80 - Unspecified acute appendicitis Plan Patient is having good progression after laparoscope appendectomy for acute appendicitis, due to patient's subjective symptoms and to be still cautious due to his additional comorbidities including insulin-dependent diabetes I agree with additional observation for another 24 hours to ensure adequate progression. In the interim he can continue regular diet we will continue insulin sliding scale we will resume his home medications and we will start SCDs for DVT prophylaxis. Attestations Medical Necessity Statement*: For possible discharge tomorrow after laparoscopic and appendectomy for acute appendicitis Coding Level of Care Code Acute Code for [facility] Diagnoses Acute appendicitis K35.80 Acute appendicitis type: unspecified acute appendicitis type
[2024-12-05 16:55] LABS: Glucose Point of Care 242 mg/dL (70-110)
[2024-12-05] MEDS: lisinopril 5 mg Tablet PO (19:59)
[2024-12-05] MEDS: NIFEdipine ER (24 hr) 30 mg Tablet PO (19:59)
[2024-12-05 21:01] LABS: Glucose Point of Care 362 mg/dL (70-110)
[2024-12-06] VITALS (7 sets, daily range): BP systolic 129–138; BP diastolic 64–72; PULSE 60–65; RESP 16–19; TEMP 36.5–36.8; O2SAT 94–100
[2024-12-06] MEDS: oxyCODONE 5 mg IR Tab/Cap 10 MG PO ×2 (04:44→08:28)
[2024-12-06] MEDS: acetaminophen 325 mg Tablet 650 MG PO ×2 (04:44→11:53)
[2024-12-06] MEDS: piperacillin-tazobactam 3.375 GM in sodium chloride 0.9% (plus) 50 ML IV (05:04)
[2024-12-06] MEDS: sodium chloride 0.9% 1,000 ML 100 ML IV (05:04)
[2024-12-06 05:45] LABS: Basophils % 0.3 %; Eosinophils # 0.1 10^3/uL (0.0-0.8); Hematocrit 43.7 % (37-53); Lymphocytes # 0.5 10^3/uL (0.8-4.8); Lymphocytes % 5.7 %; Mean Corpuscular HGB Conc 32.5 g/dL (30-55); Mean Corpuscular Hemoglobin 29.5 pg (27-33); Mean Corpuscular Volume 90.9 fl (82-101); Mean Platelet Volume 10.9 fL (7.4-10.4); Monocytes # 0.9 10^3/uL (0.2-0.9); Monocytes % 9.3 %; Neutrophils # 7.63 10^3/uL (1.8-7.7); Neutrophils % 83.2 %; Nucleated Red Blood Cells % 0 %; Platelet Count 180 10^3/cmm (157-399); Red Blood Count 4.81 10^6/uL (3.85-5.65); Red Cell Distribution Width 12.6 % (12.1-15.1); White Blood Count 9.17 10^3/uL (3.29-11.43)
[2024-12-06 06:04] LABS: Anion Gap 18.5 (5-19); Blood Urea Nitrogen 41 mg/dL (8-23); Carbon Dioxide 18 mmol/L (22-29); Chloride 103 mmol/L (98-107); Creatinine Clr Calc Pharmacy 48.7926; Glomerular Filtration Rate 40.4 mL/min (90-130); Glucose 145 mg/dL (65-115); Osmolality Calculated 293 mOsm/kg (285-295); Potassium 4.5 mmol/L (3.5-5.1); Sodium 135 mmol/L (136-145)
[2024-12-06 06:44] LABS: Glucose Point of Care 183 mg/dL (70-110)
--- NOTE | 2024-12-06 07:30 | PM.DCS ---
Discharge Providers Date of Admission: 12/04/24 22:32 Date of Discharge: December 05, 2024 Attending Provider at Admission: Tay Mccann MD Attending Provider at Discharge: Tay Mccann MD Primary Care Provider: Terry Reyes MD Diagnoses at Discharge Discharge Diagnosis (1) Acute appendicitis: Status: Acute Qualifiers: Acute appendicitis type: unspecified acute appendicitis type Qualified Code(s): K35.80 - Unspecified acute appendicitis Reason for Visit Reason for Visit: abdominal pain Hospital Course Hospital Course Patient with multiple medical comorbidities and acute appendicitis who is admitted for laparoscopic appendectomy. Procedure was done without complications, patient tolerated well the procedure. Patient will be allowed to transition to the outpatient setting on 10 days of antibiotics. Physical Exam GI: OTHER: Appropriately tender to palpation surgical incisions are covered with Dermabond. Discharge Data Studies Completed and Pending Completed Studies During Hospitalization Category Date Time Status CT abdomen pelvis w con* [id number] Urgent Cat Scan 12/04/24 20:22 Completed Pending at discharge Category Date Time Status Urinalysis and Microscopic Stat Lab 12/04/24 16:18 Uncollected Radiology Impressions Abdomen/Pelvis CT 12/04/24 20:22 IMPRESSION: Acute appendicitis. The appendix is enlarged measuring up to 13 mm in diameter with adjacent fat stranding. No abscess. Impression. ADDENDUM: 12/04/24 THIS REPORT CONTAINS FINDINGS THAT MAY BE CRITICAL TO PATIENT CARE. The findings were verbally communicated via telephone conference with TAY REED at 10:26 PM GREEN [employer] OFF BEARER on 12/04/2024. The findings were acknowledged and understood. Laboratory Results WBC 13.43 10^3/uL (3.29-11.43) H 12/04/24 17:14 RBC 6.09 10^6/uL (3.85-5.65) H 12/04/24 17:14 Hgb 17.70 g/dL (11.27-16.99) H 12/04/24 17:14 Hct 53.7 % (37-53) H 12/04/24 17:14 MCV 88.2 fl (82-101) 12/04/24 17:14 MCH 29.1 pg (27-33) 12/04/24 17:14 MCHC 33.0 g/dL (30-55) 12/04/24 17:14 RDW 12.9 % (12.1-15.1) 12/04/24 17:14 Plt Count 229 10^3/cmm (157-399) 12/04/24 17:14 MPV 10.2 fL (7.4-10.4) 12/04/24 17:14 Neut % (Auto) 84.7 % 12/04/24 17:14 Lymph % (Auto) 6.6 % 12/04/24 17:14 [place] % (Auto) 7.6 % 12/04/24 17:14 Eos % (Auto) 0.3 % 12/04/24 17:14 Baso % (Auto) 0.4 % 12/04/24 17:14 Neut # (Auto) 11.37 10^3/uL (1.8-7.7) H 12/04/24 17:14 Lymph # (Auto) 0.9 10^3/uL (0.8-4.8) 12/04/24 17:14 [place] # (Auto) 1.0 10^3/uL (0.2-0.9) H 12/04/24 17:14 Eos # (Auto) 0.0 10^3/uL (0.0-0.8) 12/04/24 17:14 Baso # (Auto) 0.1 10^3/uL (0.0-0.1) 12/04/24 17:14 Nucleated RBC % (auto) 0 % 12/04/24 17:14 Nucleated RBCs # 0.0 /100WBC 12/04/24 17:14 Sodium 134 mmol/L (136-145) L 12/04/24 17:14 Potassium 4.7 mmol/L (3.5-5.1) 12/04/24 17:14 Chloride 98 mmol/L (98-107) 12/04/24 17:14 Carbon Dioxide 21 mmol/L (22-29) L 12/04/24 17:14 Anion Gap 19.7 (5-19) H 12/04/24 17:14 BUN 38 mg/dL (8-23) H 12/04/24 17:14 Creatinine 1.3 mg/dL (0.7-1.2) H 12/04/24 17:14 GFR Calculation 55.1 mL/min (90-130) L 12/04/24 17:14 Glucose 175 mg/dL (65-115) H 12/04/24 17:14 POC Glucose 249 mg/dL (70-110) H 12/05/24 06:45 Calculated Osmolality 291 mOsm/kg (285-295) 12/04/24 17:14 Lactic Acid 1.3 mmol/L (0.5-2.2) 12/04/24 17:14 Calcium 10.6 mg/dL (8.5-10.5) H 12/04/24 17:14 Total Bilirubin 0.8 mg/dL (0.15-1.2) 12/04/24 17:14 AST 21 U/L (0-40) 12/04/24 17:14 ALT 25 U/L (0-41) 12/04/24 17:14 Alkaline Phosphatase 76 U/L (40-130) 12/04/24 17:14 C-Reactive Protein 36.6 mg/L (0.0-4.9) H 12/04/24 17:14 Total Protein 8.6 g/dL (6.6-8.7) 12/04/24 17:14 Albumin 4.3 g/dL (3.5-5.2) 12/04/24 17:14 Globulin 4.3 g/dL (1.3-4.6) 12/04/24 17:14 Lipase 6 U/L (13-60) L 12/04/24 17:14 Vitals Last Vital Signs Temp 98.1 F 12/05/24 06:54 Pulse 81 12/05/24 06:54 Resp 18 12/05/24 06:54 BP 152/82 12/05/24 06:54 Pulse Ox 93 12/05/24 06:54 O2 Del Method Room Air 12/05/24 06:54 Discharge Plan Discharge Patient Disposition: Home Condition: Stable Prescriptions: New amoxicillin-pot clavulanate 875-125 mg tablet 1 tab PO BID 10 Days Qty: 20 0RF Continued (DME) diabetic shoes with 3 inserts See Rx Instructions .Route .MEDSUPPLY Qty: 1 0RF Rx Instructions: As directed to the shoe kaitlynn nifedipine [Procardia XL] 30 mg tablet extended release 24hr 30 mg PO BEDTIME magnesium hydroxide [Milk of Magnesia] 400 mg/5 mL Suspension 30 ml PO DAILY PRN (Reason: Constipation) calcium carbonate 500 mg calcium (1,250 mg) Tablet 1,000 mg PO Q4H PRN (Reason: Dyspepsia) bisacodyl 10 mg Suppository 10 mg FL DAILY PRN (Reason: Constipation) ferrous sulfate [Iron (ferrous sulfate)] 325 mg (65 mg iron) Tablet 325 mg PO DAILY ascorbic acid (vitamin C) [Vitamin C] 500 mg Tablet,Chewable 500 mg PO DAILY omeprazole 20 mg Capsule,Delayed Release(Dr/Ec) 20 mg PO DAILY lisinopril [Zestril] 5 mg tablet 5 mg PO BEDTIME nystatin 100,000 unit/gram powder 1 applic TOPICAL BID insulin aspart U-100 100 unit/mL (3 mL) insulin pen See Rx Instructions .ROUTE .COMPLEX Rx Instructions: GIVE 18 UNITS BY SUBCUTANEOUS INJECTION THREE TIMES DAILY. OLD IF BS IS BELOW 140. Systane (PF) 0.4-0.3 % Dropperette 1 drp OPHTHALMIC (EYE) DAILY PRN (Reason: Dry Eyes) insulin glargine [Lantus Solostar U-100 Insulin] 100 unit/mL (3 mL) insulin pen 60 unit SUBCUT BEDTIME Eucerin Cream 1 applic TOPICAL DAILY PRN (Reason: IRRITATION) Lactobacillus acidoph-L.bulgar [Floranex] 1 million cell Tablet 1 tab PO TID dapagliflozin propanediol [Farxiga] 10 mg tablet 10 mg PO DAILY dapagliflozin propanediol [Farxiga] 10 mg tablet 10 mg PO DAILY tamsulosin 0.4 mg Capsule 0.4 mg PO DAILY Qty: 30 0RF polyethylene glycol 3350 [Miralax] 17 gram powder in packet 17 g PO BID 7 Days Qty: 14 0RF sennosides-docusate sodium [Senokot-S] 8.6-50 mg Tablet 1 tab-cap PO Q12H PRN (Reason: Constipation) Qty: 14 0RF oxycodone 10 mg tablet 10 mg PO Q8H PRN (Reason: Pain) 6 Days Qty: 20 0RF Discontinued acetaminophen 325 mg Tablet 650 mg PO QID PRN (Reason: Pain) Referrals: Terry Reyes MD [Primary Care Provider] - Tay Mccann MD [Physician] - (2 weeks) Discharge Diet: Advance as tolerated Discharge Activity: Limit activity as instructed Patient Instructions: Acute Wound Care (DC), Opioid Safety, Post Anesthesia Care Activity Restrictions/Additional Instructions: No heavy lifting for the next 6 weeks, walk is much as possible this will speed up your recovery. Please return to the hospital you have fever chills severe abdominal pain that is getting worse over time nausea and vomiting and diarrhea. You can shower starting the day after tomorrow let soap and water run over your wounds and then pat dry. Discharge Attestations Time Spent in Discharge Care*: less than 30 min Status at Discharge: Cognitive status at discharge: cognitively intact, Behavioral status at discharge: cooperative, Quality Metrics Clinical Quality Measures [ No reported AMI, CVA or VTE this stay] Coding Level of Care Code Acute Code for [facility] Diagnoses Acute appendicitis K35.80 Acute appendicitis type: unspecified acute appendicitis type
[2024-12-06] MEDS: pantoprazole DR 40 mg Tablet PO (08:20)
[2024-12-06] MEDS: tamsulosin 0.4 mg Capsule PO (08:20)
[2024-12-06] MEDS: insulin lispro 100 unit/1 mL SUBCUT (08:20)
[2024-12-06 11:43] LABS: Glucose Point of Care 275 mg/dL (70-110)
[2024-12-06] MEDS: ondansetron 4 MG Tablet 8 MG PO (11:50)
== END 2024-12-06 12:15 | disposition home or self-care (01) ==
LOC: ER 22:38 → MEDSURG 22:41
PROVIDERS: Emergency Medicine; Admitting Provider Surgery; Emergency Provider Physician Assistant; PCP Family Medicine; Visit Provider Surgery
PROC: 0DTJ4ZZ Resection of Appendix, Percutaneous Endoscopic Approach (ICD-10-PCS; CPT 44970; principal; 2024-12-05 08:00)
DX: K35.80 Unspecified acute appendicitis (principal); E11.22 Type 2 diabetes mellitus with diabetic chronic kidney disease; I12.9 Hypertensive chronic kidney disease with stage 1 through stage 4 chronic kidney disease, or unspecified chronic kidney disease; N18.9 Chronic kidney disease, unspecified; Z79.4 Long term (current) use of insulin; I25.10 Atherosclerotic heart disease of native coronary artery without angina pectoris; Z95.5 Presence of coronary angioplasty implant and graft
CPT/HCPCS: 44970; 36415; 36416; 74177; 80048; 80053; 82962; 83605; 83690; 85025; 86140; 88304; 96372; 96374; 96375; 99285; G0378; J1100; J1815; J1885; J2270; J2405; J2543; J2704; J3010; J3490; J7030; Q0162

== ENCOUNTER → 2024-12-21 08:06 | Outpatient (BNVA) | payer MEDICARE, SELFPAY | PROVIDERS: PCP Family Medicine; Referring Provider Family Medicine; Visit Provider Internal Medicine | DX: E11.9 Type 2 diabetes mellitus without complications (principal); G62.9 Polyneuropathy, unspecified; E78.2 Mixed hyperlipidemia | CPT/HCPCS: 99204 ==

== ENCOUNTER → 2024-12-22 08:50 | Outpatient (BNVA) | payer MEDICARE, SELFPAY | PROVIDERS: PCP Family Medicine; Visit Provider Surgery | DX: Z90.49 Acquired absence of other specified parts of digestive tract (principal); Z98.890 Other specified postprocedural states | CPT/HCPCS: 99024 ==

== ENCOUNTER 2024-12-30 12:00 | Outpatient (CLI) | payer MEDICARE, SELFPAY ==
[2024-12-30 12:49] LABS: Alanine Aminotransferase 19 U/L (0-41); Albumin Level 4.1 g/dL (3.5-5.2); Alkaline Phosphatase 76 U/L (40-130); Anion Gap 19.5 (5-19); Aspartate Amino Transferase 17 U/L (0-40); Blood Urea Nitrogen 19 mg/dL (8-23); Calcium 9.6 mg/dL (8.5-10.5); Carbon Dioxide 20 mmol/L (22-29); Chloride 101 mmol/L (98-107); Globulin 3.3 g/dL (1.3-4.6); Glomerular Filtration Rate 55.1 mL/min (90-130); Glucose 199 mg/dL (65-115); Osmolality Calculated 290 mOsm/kg (285-295); Potassium 4.5 mmol/L (3.5-5.1); Sodium 136 mmol/L (136-145); Total Bilirubin 0.5 mg/dL (0.15-1.2); Total Protein 7.4 g/dL (6.6-8.7)
[2024-12-31 06:34] LABS: C-Peptide 1.01 ng/mL (0.80-3.85)
== END 2024-12-30 12:01 | disposition home or self-care (01) ==
PROVIDERS: PCP Family Medicine; Visit Provider Internal Medicine
DX: E11.9 Type 2 diabetes mellitus without complications (principal)
CPT/HCPCS: 36415; 80053; 84681; 86337; 86341

== ENCOUNTER 2024-12-31 08:23 | Outpatient (CLI) | payer MEDICARE, SELFPAY ==
[2024-12-31 09:19] LABS: Alanine Aminotransferase 19 U/L (0-41); Alkaline Phosphatase 66 U/L (40-130); Anion Gap 18.3 (5-19); Aspartate Amino Transferase 19 U/L (0-40); Blood Urea Nitrogen 18 mg/dL (8-23); Calcium 9.7 mg/dL (8.5-10.5); Carbon Dioxide 22 mmol/L (22-29); Chloride 100 mmol/L (98-107); Globulin 3.3 g/dL (1.3-4.6); Glomerular Filtration Rate 66.8 mL/min (90-130); Glucose 173 mg/dL (65-115); Osmolality Calculated 288 mOsm/kg (285-295); Potassium 4.3 mmol/L (3.5-5.1); Sodium 136 mmol/L (136-145); Total Bilirubin 0.7 mg/dL (0.15-1.2); Total Protein 7.3 g/dL (6.6-8.7)
== END 2024-12-31 08:24 | disposition home or self-care (01) ==
LOC: LAB 08:24
PROVIDERS: PCP Family Medicine; Visit Provider Internal Medicine
DX: E11.9 Type 2 diabetes mellitus without complications (principal)
CPT/HCPCS: 36415; 80053; 84681

== ENCOUNTER 2025-03-11 08:34 | Outpatient (CLI) | payer MEDICARE, SELFPAY ==
[2025-03-11 09:34] LABS: Alanine Aminotransferase 26 U/L (0-41); Albumin Level 4.2 g/dL (3.5-5.2); Alkaline Phosphatase 78 U/L (40-130); Anion Gap 13.7 (5-19); Aspartate Amino Transferase 22 U/L (0-40); Blood Urea Nitrogen 13 mg/dL (8-23); Calcium 9.5 mg/dL (8.5-10.5); Carbon Dioxide 25 mmol/L (22-29); Chloride 104 mmol/L (98-107); Chol HDL Ratio 2.53 mg/dL (1.0-5.00); Cholesterol 114 mg/dL (0-200); Globulin 3.4 g/dL (1.3-4.6); Glomerular Filtration Rate 60.2 mL/min (90-130); Glucose 158 mg/dL (65-115); HDL Cholesterol 45 mg/dL (60-100); LDL Cholesterol Calculated 59 mg/dL (50-129); LDL HDL Ratio 1.31 RATIO (0.00-3.22); Osmolality Calculated 289 mOsm/kg (285-295); Potassium 4.7 mmol/L (3.5-5.1); Sodium 138 mmol/L (136-145); Total Bilirubin 0.9 mg/dL (0.15-1.2); Total Protein 7.6 g/dL (6.6-8.7); Triglycerides 51 mg/dL (0-150)
[2025-03-11 09:37] LABS: Estmated Average Glucose 180; Hemoglobin A1C 7.9 % (4.0-6.0)
[2025-03-11 10:11] LABS: Creatinine Urine, Random 144 mg/dL (39-259); Microalbumin Random Urine 7 ug/dL (0-20)
[2025-03-11 10:23] LABS: Microalbum Creatinine Ratio Ur 49 mg/dL (0-20)
== END 2025-03-11 08:35 | disposition home or self-care (01) ==
PROVIDERS: PCP Family Medicine; Visit Provider Internal Medicine
DX: E11.9 Type 2 diabetes mellitus without complications (principal); E78.2 Mixed hyperlipidemia
CPT/HCPCS: 36415; 80053; 80061; 82044; 83036

== ENCOUNTER → 2025-03-22 09:27 | Outpatient (BNVA) | payer MEDICARE, SELFPAY | PROVIDERS: PCP Family Medicine; Visit Provider Internal Medicine | DX: E11.9 Type 2 diabetes mellitus without complications (principal); G62.9 Polyneuropathy, unspecified; E78.2 Mixed hyperlipidemia | CPT/HCPCS: 99214 ==

== ENCOUNTER → 2025-05-03 09:01 | Outpatient (BNVA) | payer MEDICARE, SELFPAY | PROVIDERS: PCP Family Medicine; Visit Provider Internal Medicine | DX: E11.9 Type 2 diabetes mellitus without complications (principal); E78.2 Mixed hyperlipidemia; G62.9 Polyneuropathy, unspecified | CPT/HCPCS: 99214 ==

== ENCOUNTER → 2025-05-25 08:02 | Outpatient (BNVA) | payer MEDICARE, SELFPAY | PROVIDERS: PCP Family Medicine; Visit Provider Podiatrist Foot & Ankle Surgery | DX: E11.69 Type 2 diabetes mellitus with other specified complication (principal); L60.3 Nail dystrophy; L84 Corns and callosities; Z89.421 Acquired absence of other right toe(s); G62.9 Polyneuropathy, unspecified; Z86.31 Personal history of diabetic foot ulcer | CPT/HCPCS: 11055; 11721; 99213 ==

== ENCOUNTER 2025-05-31 15:05 | Emergency (ER) | payer MEDICARE, SELFPAY ==
--- OUTSIDE RECORDS SUMMARY | 2024-12-30 12:00 | XMS_ITS ---
Author Organization [facility] Address [address] [place] [address] Care Team Providers Care Household Appliances Salesperson Name Role Phone Terry Reyes Primary Care Provider Edgar Alcazar Unavailable [phone] REASON FOR VISIT Pt cx will call back to rs-- 6 mo w/ fr/pvr Encounters Encounter Location Date Provider Diagnosis [facility] [address] [place] [address] 12/30/2024 Edgar Schaffer Plan Of Treatment No Information Progress Notes * Aníbal AMARO KDOB: (70 yo M)Acc No.[id number]:12/30/2024 Progress Notes Patient: Jen MORRISSEYel Olivier Provider: Deon Schaffer APRN :1955 A ge:69 Y S ex:Male Date:12/30/2024 Address: [address], [place], [facility] Pcp:Terry Reyes Subjective: * Chief Complaints: * 1 . Pt cx will call back to rs-- 6 mo w/ fr/pvr. * Medical History: Objective: * Vitals: Assessment: Plan: * Treatment: * Billing Information: * Visit Code: * Procedure Codes: * Electronic signature of León Schaffer APRN on 05/31/2025 at 03:19 PM CDT Sign off status: Pending * Provider: Deon Schaffer APRN Date: 0 12/30/2024 Generated for Diamondi ng/Fakettyg/eTransmitting on: 0 05/31/2025 03:19 PM CDT
[2025-05-31 15:07] VITALS: BP 183/51; PULSE 95; RESP 16; TEMP 36.7; O2SAT 95; BMI 27.3
--- OUTSIDE RECORDS SUMMARY | 2025-05-31 15:19 | XMS_ITS | Patient Health Record ---
Author Organization [facility] [employer] Address [address] [place] [address] Care Team Providers Care Manager File Name Role Phone Terry Reyes Primary Care Provider Edgar Alcazar Unavailable [phone] SONG SIFUENTES Unavailable [phone] Allergies Allergen (clinical drug ingredient) Drug/Non Drug Allergy documented on EMR Reaction Allergy Type Onset Date Status sulfamethoxazole / trimethoprim Bactrim Unknown Drug Allergy Active Results Component Value Reference Range Notes Urinalysis, Routine Reviewed date:07/01/2024 04:44:41 PM Interpretation: Performing Lab: Notes/Report: Urine-Color yellow Appearance clear Glucose 3+ Bilirubin - Ketones - Specific [place] 1.015 Occult Blood - pH 6.0 Urine Protein - Urobilinogen,Semi-Qn - Nitrite, Urine - WBC Esterase - Reason For Referral No Information Medications Medication SIG (Take, Route, Frequency, Duration) Notes Start Date End Date Status Floranex - as directed Orally 3 times a day 06/16/2024 Active Omeprazole 20 MG 1 capsule 30 minutes before morning meal Orally Once a day 06/16/2024 Active Tamsulosin HCl 0.4 MG 1 capsule Orally O nce a day 06/16/2024 Active Lisinopril 5 MG 1 tablet Orally Once a day Active Lidocaine & Adhesive Sheets 5 % (Patch) as directed Externally 06/16/2024 Activ e Lantus SoloStar 100 UNIT/ML as directed Subcutaneous 06/16/2024 Active NIFEdipine 20 MG 1 capsule as needed Orally every 8 hrs 06/16/2024 Active Vitamin C 500 MG as directed Orally 06/16/2024 Active oxyCODONE HCl 10 MG 1 tablet as needed O rally every 8hrs 06/16/2024 Active Milk of Magnesia 2400 MG/30ML 5 mL at least 4 hours between doses as needed Orally Four times a day 06/16/2024 Active Senna 8.6 MG 2 tablets at bedtime as needed Orally Once a day Active Acetaminophen 500 MG 1 capsule as needed Orally every 6 hrs 06/16/2024 Active Calcium Carbonate 1250 (500 Ca) MG 1 tablet with food Orally Twice a day 06/16/2024 Active Sennosides-Docusate Sodium 8.6-50 MG 1 tablet as needed Orally Twice a day 06/16/2024 Active Farxiga 10 MG 1 tablet Orally Once a day 06/16/2024 Active Ferrous Sulfate 325 (65 Fe) MG 1 tablet Orally Three times a Week 06/16/2024 Active Social History Tobacco Use: Social History Observation Description Date Details (start date - stop date) Never Smoker NA - NA Tobacco Control (Standard) Question Answer Notes Tobacco use: Nonsmoker Problems Problem Type SNOMED Code ICD Code Onset Dates Problem Status W/U Status Risk Notes Problem Benign prostatic hyperplasia (964482718) BPH (benign prostatic hyperplasia) (N40.0) Active confirmed Problem Change of urinary catheter bag (procedure) (168250477) Catheter (urine) change required (Z46.6) Active confirmed Vital Signs Heart Rate 88 /min 07/01/2024 Height-cm 157.48 cm 07/01/2024 Blood pressure diastolic 78 mm Hg 07/01/2024 Weight-kg 88 kg 07/01/2024 Height 62 in 07/01/2024 Blood pressure systolic 133 mm Hg 07/01/2024 Weight 194 lbs 07/01/2024 BMI 35.48 kg/m2 07/01/2024 Procedures Procedure Date Ordered Date Performed Result Body Sit e Voiding Trial 06/16/2024 06/16/2024 N/A Bladder Scan 07/01/2024 07/01/2024 [id number] Encounters Encounter Location Date Provider Diagnosis [facility] [address] [place] [address] 06/16/2024 Edgar Schaffer BPH (benign prostati c hyperplasia) N40.0 ; Urinary retention with incomplete bladder emptying R33.9 ; Prostate cancer screening Z12.5 and Catheter (urine) change required Z46.6 [facility] [address] [place] [address] 07/01/2024 Edgar Schaffer BPH (benign prostati c hyperplasia) N40.0 ; Urinary retention with incomplete bladder emptying R33.9 and Prostate cancer screening Z12.5 [facility], [facility] [address] [place] [address] 06/01/2024 SONG SIFUENTES Assessments Encounter Date Diagnosis (ICD Code) Assessment Notes Treatment Notes Treatment Clinical Notes Section Notes 06/16/2024 BPH (benign prostatic hyperplasia) (ICD-10 - N40.0) Pt presented to the office today for further evaluation involving complaints of acute urinary retention following a fall and incidental findings of elevated Cr that resolved prior to discharge. Fortunately, patient passed v/t in the office today set up with nursing staff. Otherwise, previously healthy and denies any bothersome LUTS at baseline. We discussed possibility of irritative voiding over next 24-48 hours. Discussed on return to clinic or Emergency Department precautions including pains, urinary retention, and etc... patient will push fluids and continue with hydration status. Did discuss the option to set up for in office cystoscopy and explained this procedure, however, for now, patient is happy, and plan is to reassess in 3-4w with UA/PVR or with any dysuria, hematuria, or retention. Patient is to continue with recently prescribed FLOMAX. Patient is unsure of any previous PSAs. Plan is to gain prior to next office visit. Otherwise, for now, no further workup or investigation at this time. All questions that were asked, were answered. Patient satisfied with plan. 06/16/2024 Urinary retention with incomplete bladder emptying (ICD-10 - R33.9) Pt presented to the office today for further evaluation involving complaints of acute urinary retention following a fall and incidental findings of elevated Cr that resolved prior to discharge. Fortunately, patient passed v/t in the office today set up with nursing staff. Otherwise, previously healthy and denies any bothersome LUTS at baseline. We discussed possibility of irritative voiding over next 24-48 hours. Discussed on return to clinic or Emergency Department precautions including pains, urinary retention, and etc... patient will push fluids and continue with hydration status. Did discuss the option to set up for in office cystoscopy and explained this procedure, however, for now, patient is happy, and plan is to reassess in 3-4w with UA/PVR or with any dysuria, hematuria, or retention. Patient is to continue with recently prescribed FLOMAX. Patient is unsure of any previous PSAs. Plan is to gain prior to next office visit. Otherwise, for now, no further workup or investigation at this time. All questions that were asked, were answered. Patient satisfied with plan. 07/01/2024 BPH (benign prostatic hyperplasia) (ICD-10 - N40.0) Pt presented to the office today for further evaluation involving complaints of acute urinary retention following a fall and incidental findings of elevated Cr that resolved prior to discharge. He passed voiding trial at initial visit. He has since been doing well without complaints. We discussed the concept of maximal medical management of BPH as well as possible treatment with a transurethral procedure. May consider in office cystoscopy in near future. We will stay conservatively by continuing Flomax for his urinary complaints. Side effects reviewed. Refill as needed. At this time, he is currently not in urinary retention. PVR of 62cc. Clear UA. Vitals are stable. No complaints of pain. We discussed PSA completed for this visit is 1.16. He will then return care safely in 6 months for symptom reassessment and for noninvasive urodynamics. For now, and through shared decision making we are in agreement with no further workup or intervention at this time with care plan, aside from what was mentioned. Vitals checked. History reviewed. Exam as mentioned above. Patient has no other voiced concerns or questions. Patient will call back or return care sooner if further issues/questions. All questions that were asked, were answered. Patient satisfied with plan. 07/01/2024 Urinary retention with incomplete bladder emptying (ICD-10 - R33.9) Pt presented to the office today for further evaluation involving complaints of acute urinary retention following a fall and incidental findings of elevated Cr that resolved prior to discharge. He passed voiding trial at initial visit. He has since been doing well without complaints. We discussed the concept of maximal medical management of BPH as well as possible treatment with a transurethral procedure. May consider in office cystoscopy in near future. We will stay conservatively by continuing Flomax for his urinary complaints. Side effects reviewed. Refill as needed. At this time, he is currently not in urinary retention. PVR of 62cc. Clear UA. Vitals are stable. No complaints of pain. We discussed PSA completed for this visit is 1.16. He will then return care safely in 6 months for symptom reassessment and for noninvasive urodynamics. For now, and through shared decision making we are in agreement with no further workup or intervention at this time with care plan, aside from what was mentioned. Vitals checked. History reviewed. Exam as mentioned above. Patient has no other voiced concerns or questions. Patient will call back or return care sooner if further issues/questions. All questions that were asked, were answered. Patient satisfied with plan. 07/01/2024 Prostate cancer screening (ICD-10 - Z12.5) Pt presented to the office today for further evaluation involving complaints of acute urinary retention following a fall and incidental findings of elevated Cr that resolved prior to discharge. He passed voiding trial at initial visit. He has since been doing well without complaints. We discussed the concept of maximal medical management of BPH as well as possible treatment with a transurethral procedure. May consider in office cystoscopy in near future. We will stay conservatively by continuing Flomax for his urinary complaints. Side effects reviewed. Refill as needed. At this time, he is currently not in urinary retention. PVR of 62cc. Clear UA. Vitals are stable. No complaints of pain. We discussed PSA completed for this visit is 1.16. He will then return care safely in 6 months for symptom reassessment and for noninvasive urodynamics. For now, and through shared decision making we are in agreement with no further workup or intervention at this time with care plan, aside from what was mentioned. Vitals checked. History reviewed. Exam as mentioned above. Patient has no other voiced concerns or questions. Patient will call back or return care sooner if further issues/questions. All questions that were asked, were answered. Patient satisfied with plan. 06/16/2024 Prostate cancer screening (ICD-10 - Z12.5) Pt presented to the office today for further evaluation involving complaints of acute urinary retention following a fall and incidental findings of elevated Cr that resolved prior to discharge. Fortunately, patient passed v/t in the office today set up with nursing staff. Otherwise, previously healthy and denies any bothersome LUTS at baseline. We discussed possibility of irritative voiding over next 24-48 hours. Discussed on return to clinic or Emergency Department precautions including pains, urinary retention, and etc... patient will push fluids and continue with hydration status. Did discuss the option to set up for in office cystoscopy and explained this procedure, however, for now, patient is happy, and plan is to reassess in 3-4w with UA/PVR or with any dysuria, hematuria, or retention. Patient is to continue with recently prescribed FLOMAX. Patient is unsure of any previous PSAs. Plan is to gain prior to next office visit. Otherwise, for now, no further workup or investigation at this time. All questions that were asked, were answered. Patient satisfied with plan. 06/16/2024 Catheter (urine) change required (ICD-10 - Z46.6) Pt presented to the office today for further evaluation involving complaints of acute urinary retention following a fall and incidental findings of elevated Cr that resolved prior to discharge. Fortunately, patient passed v/t in the office today set up with nursing staff. Otherwise, previously healthy and denies any bothersome LUTS at baseline. We discussed possibility of irritative voiding over next 24-48 hours. Discussed on return to clinic or Emergency Department precautions including pains, urinary retention, and etc... patient will push fluids and continue with hydration status. Did discuss the option to set up for in office cystoscopy and explained this procedure, however, for now, patient is happy, and plan is to reassess in 3-4w with UA/PVR or with any dysuria, hematuria, or retention. Patient is to continue with recently prescribed FLOMAX. Patient is unsure of any previous PSAs. Plan is to gain prior to next office visit. Otherwise, for now, no further workup or investigation at this time. All questions that were asked, were answered. Patient satisfied with plan. Plan Of Treatment Pending Test Test Name Order Date PSA-Diagnostic 06/16/2024 Insurance Providers Payer Name Payer Address Payer Phone Subscriber Number Group Number Insured Name Patient Relationship to Insured Coverage Start Date Coverage End Date [facility] [employer] [address] [place], [place] [id number] Aníbal Rachel Self - patient is the insured Medical (General) History Medical History History ICD Code ckd urinary rention hyperkalemia HTN type 2 DM Surgical History Surgery Date(Month/Year) toe amp s/p debridement Hospitalization History Reason Date(Month/Year) see surgeries
--- NOTE | 2025-05-31 15:47 | PC.NURSE ---
[facility] CALLED AND STATED THEY WANTED US TO TROUBLESHOOT HIS INSULIN PUMP. INSULIN PUMP ORDERED AND STARTED BY DR BLOUNT.
--- NOTE | 2025-05-31 16:30 | W.ED.GENADLT ---
HPI - General Adult General: Chief complaint: General Medical Stated complaint: insulin pump not working Time Seen by Provider: 05/31/25 16:00 History of Present Illness: 70-year-old male presents emergency room with complaint of his insulin pump malfunction. Has not been able to administer any insulin for the last several days. He is otherwise awake and alert has not had any vomiting no polyuria polydipsia or polyphagia. Usually suspect to reassess. Associated symptoms: Deny chest pain, dyspnea or rash Related Data Home Medications ?Medication ?Instructions ?Recorded ?Confirmed Lactobacillus acidoph-L.bulgaricus 1 tab PO TID 02/25/24 05/25/25 1 million cell tablet (Floranex) ascorbic acid (vitamin C) 500 mg 500 mg PO DAILY 02/25/24 05/25/25 chewable tablet (Vitamin C) bisacodyl 10 mg rectal suppository 10 mg MN DAILY PRN Constipation 02/25/24 05/25/25 calcium carbonate 1,000 mg PO Q4H PRN Dyspepsia 02/25/24 05/25/25 ferrous sulfate 325 mg (65 mg 325 mg PO DAILY 02/25/24 05/25/25 iron) tablet (Iron (ferrous sulfate)) lisinopril 5 mg tablet (Zestril) 5 mg PO BEDTIME 02/25/24 05/25/25 magnesium hydroxide 400 mg/5 mL 30 ml PO DAILY PRN Constipation 02/25/24 05/25/25 oral suspension (Milk of Magnesia) nifedipine 30 mg tablet,extended 30 mg PO BEDTIME 02/25/24 05/25/25 release 24 hr (Procardia XL) nystatin 100,000 unit/gram topical 1 applic topical BID 02/25/24 05/25/25 powder omeprazole 20 mg capsule,delayed 20 mg PO DAILY 02/25/24 05/25/25 release peg 400-propylene glycol (PF) 0.4 1 drp ophthalmic (eye) DAILY PRN 02/25/24 05/25/25 %-0.3 % eye drops in a dropperette Dry Eyes (Systane (PF)) insulin glargine 100 unit/mL (3 55 unit SUBCUT BEDTIME 12/23/24 05/25/25 mL) subcutaneous pen (Lantus Solostar U-100 Insulin) Held on 04/28/25. Instructions: Order Change acetaminophen 325 mg tablet 325 mg PO QID PRN 03/23/25 05/25/25 (Tylenol) blood-glucose sensor (Guardian 4 #1 ea 03/23/25 05/25/25 Glucose Sensor device) lanolin alcohols-mineral 1 applic topical DAILY 03/23/25 05/25/25 oil-w.petrolatum-ceresin topical cream (Minerin Creme topical) Previous Rx's ?Medication ?Instructions ?Recorded tamsulosin 0.4 mg capsule 0.4 mg PO DAILY #30 caps 05/31/24 oxycodone 10 mg tablet 10 mg PO Q8H PRN Pain 6 days #20 12/05/24 tabs polyethylene glycol 3350 17 gram 17 g PO BID 7 days #14 ea 12/05/24 oral powder packet (Miralax) sennosides 8.6 mg-docusate sodium 1 tab-cap PO Q12H PRN Constipation 12/05/24 50 mg tablet (Senokot-S) #14 tabs atorvastatin 40 mg tablet 40 mg PO DAILY #90 tabs 12/21/24 insulin lispro 100 unit/mL See Rx Instructions .Route 05/19/25 subcutaneous solution (Humalog .COMPLEX #10 mL U-100 Insulin) insulin lispro 100 unit/mL See Rx Instructions .Route 05/19/25 subcutaneous solution (Humalog .COMPLEX #90 mL U-100 Insulin) Diabetic Shoes 3 x insoles #1 ea 05/25/25 insulin lispro 100 unit/mL 10 unit (0.1 mL) SUBCUT TID #15 mL 05/31/25 subcutaneous pen (Humalog KwikPen (U-100) Insulin) pen needle, diabetic 29 gauge x #100 ea 05/31/25 1/2 (Ultra-Thin II Insulin Pen [place]) Allergies Allergy/AdvReac Type Severity Reaction Status Date / Time sulfamethoxazole (From Allergy ALGY-Rash Verified 05/25/25 08:07 Bactrim) trimethoprim (From Bactrim) Allergy ALGY-Rash Verified 05/25/25 08:07 Review of Systems Const: Denies: fever(s) or chills Card: Denies: chest pain Resp: Denies: dyspnea GI: Denies: abdominal pain : Denies: dysuria, urinary frequency or urinary urgency Musc: Denies: neck pain or back pain Skin/Breast: Denies: rash PFSH ED PFSH: Medical History Hypertension History of diabetic ulcer of foot Osteomyelitis Diabetes Surgical History History of laparoscopic appendectomy Status post amputation of toe of right foot Social History Smoking and tobacco/nicotine status: unknown if used tobacco/nicotine Physical Exam Const: COMMON NORMALS: no acute distress GENERAL APPEARANCE: cooperative and comfortable ORIENTATION/CONSCIOUSNESS: Yes awake, Yes oriented to person, Yes oriented to place and Yes oriented to time HENMT: COMMON NORMALS: normocephalic, atraumatic and hearing grossly normal bilaterally HEAD & SCALP: normocephalic and atraumatic Resp: COMMON NORMALS: normal respiratory effort, No retractions, No use of accessory muscles and clear to auscultation bilaterally AUSCULTATION: clear to auscultation bilaterally Cardio: COMMON NORMALS: regular rate, regular rhythm and No murmurs present (Cardio) RATE: regular rate RHYTHM: regular rhythm GI: COMMON NORMALS: Soft to palpation and No hepatosplenomegaly present AUSCULTATION: Yes normoactive bowel sounds PALPATION: Yes Soft to palpation, No Tenderness to palpation present (GI), No Guarding due to palpation present (GI) and Yes No hepatosplenomegaly present Extremity: COMMON NORMALS: normal to inspection, capillary refill normal, no clubbing, cyanosis or edema, no calf tenderness and no pedal edema Neuro: SENSORIUM/ORIENTATION: Yes oriented to person, Yes oriented to place and Yes oriented to time Skin: COMMON NORMALS: no rashes or lesions noted GENERAL SKIN EXAM: no rashes or lesions noted Course Vital Signs: Vital signs: Vital Signs Temperature 98.0 F 05/31/25 15:07 Pulse Rate 70 05/31/25 18:03 Respiratory Rate 16 05/31/25 15:07 Blood Pressure 171/87 05/31/25 18:03 Pulse Oximetry 98 05/31/25 18:03 Oxygen Delivery Me thod Room Air 05/31/25 15:07 MDM - General Adult Medical Decision Making Patient has hyperglycemia but he has no acute decompensated DKA serum ketones negative. Does have a mild anion gap. He is given fluids and insulin his blood sugar has improved. Will discharge home on a sliding scale. We did call to check there is nobody available that we can find on staff to help him troubleshoot the insulin pump at this time. Continue sliding scale and follow-up with Dr. Ruggiero's office for the entity that gave him the insulin pump to see if they can get it functioning again. Lab Data 05/31/25 16:18 05/31/25 16:18 Laboratory Results WBC 6.03 10^3/uL (3.29-11.43) 05/31/25 16:18 RBC 4.58 10^6/uL (3.85-5.65) 05/31/25 16:18 Hgb 13.60 g/dL (11.27-16.99) 05/31/25 16:18 Hct 40.7 % (37-53) 05/31/25 16:18 MCV 88.9 fl (82-101) 05/31/25 16:18 MCH 29.7 pg (27-33) 05/31/25 16:18 MCHC 33.4 g/dL (30-55) 05/31/25 16:18 RDW 13.0 % (12.1-15.1) 05/31/25 16:18 Plt Count 186 10^3/cmm (157-399) 05/31/25 16:18 MPV 10.4 fL (7.4-10.4) 05/31/25 16:18 Neut % (Auto) 66.7 % 05/31/25 16:18 Lymph % (Auto) 16.6 % 05/31/25 16:18 [place] % (Auto) 12.9 % 05/31/25 16:18 Eos % (Auto) 2.7 % 05/31/25 16:18 Baso % (Auto) 0.8 % 05/31/25 16:18 Neut # (Auto) 4.02 10^3/uL (1.8-7.7) 05/31/25 16:18 Lymph # (Auto) 1.0 10^3/uL (0.8-4.8) 05/31/25 16:18 [place] # (Auto) 0.8 10^3/uL (0.2-0.9) 05/31/25 16:18 Eos # (Auto) 0.2 10^3/uL (0.0-0.8) 05/31/25 16:18 Baso # (Auto) 0.1 10^3/uL (0.0-0.1) 05/31/25 16:18 Nucleated RBC % (auto) 0 % 05/31/25 16:18 Nucleated RBCs # 0.0 /100WBC 05/31/25 16:18 Sodium 133 mmol/L (136-145) L 05/31/25 16:18 Potassium 5.3 mmol/L (3.5-5.1) H 05/31/25 16:18 Chloride 99 mmol/L (98-107) 05/31/25 16:18 Carbon Dioxide 18 mmol/L (22-29) L 05/31/25 16:18 Anion Gap 21.3 (5-19) H 05/31/25 16:18 BUN 24 mg/dL (8-23) H 05/31/25 16:18 Creatinine 1.4 mg/dL (0.7-1.2) H 05/31/25 16:18 GFR Calculation 50.4 mL/min (90-130) L 05/31/25 16:18 Glucose 351 mg/dL (65-115) H 05/31/25 16:18 POC Glucose 328 mg/dL (70-110) H 05/31/25 16:24 Calculated Osmolality 294 mOsm/kg (285-295) 05/31/25 16:18 Calcium 9.6 mg/dL (8.5-10.5) 05/31/25 16:18 Total Bilirubin 0.6 mg/dL (0.15-1.2) 05/31/25 16:18 AST 18 U/L (0-40) 05/31/25 16:18 ALT 26 U/L (0-41) 05/31/25 16:18 Alkaline Phosphatase 73 U/L (40-130) 05/31/25 16:18 Total Protein 7.4 g/dL (6.6-8.7) 05/31/25 16:18 Albumin 4.1 g/dL (3.5-5.2) 05/31/25 16:18 Globulin 3.3 g/dL (1.3-4.6) 05/31/25 16:18 Serum Ketones Negative (Negative) 05/31/25 16:18 No radiology studies performed this visit Discharge Plan Discharge Patient Disposition: Home Clinical Impression: Hyperglycemia, Type 2 diabetes mellitus, Hyperkalemia Condition: Stable Prescriptions: New insulin lispro [Humalog KwikPen Insulin] 100 unit/mL insulin pen 10 unit SUBCUT TID Qty: 15 0RF Rx Instructions: Moderate sliding scale (DME) pen needle, diabetic [Ultra-Thin II Ins Pen [place]] 29 gauge x 1/2 needle See Rx Instructions .Route Qty: 100 0RF Rx Instructions: As directed No Action atorvastatin 40 mg tablet 40 mg PO DAILY Qty: 90 1RF insulin glargine [Lantus Solostar U-100 Insulin] 100 unit/mL (3 mL) insulin pen 55 unit SUBCUT BEDTIME (DME) Diabetic Shoes 3 x insoles See Rx Instructions .Route .MEDSUPPLY Qty: 1 0RF Rx Instructions: As directed by [employer] 3 x insoles acetaminophen [Tylenol] 325 mg tablet 325 mg PO QID PRN Minerin Creme Cream 1 applic topical DAILY (DME) Guardian 4 Glucose Sensor Device See Rx Instructions .ROUTE .MEDSUPPLY Qty: 1 Rx Instructions: As directed insulin lispro [Humalog U-100 Insulin] 100 unit/mL solution See Rx Instructions .ROUTE .COMPLEX MDD 100 units Qty: 10 0RF Rx Instructions: via insulin pump; insulin lispro [Humalog U-100 Insulin] 100 unit/mL solution See Rx Instructions .ROUTE .COMPLEX MDD 100 units Qty: 90 1RF Rx Instructions: via insulin mump; nifedipine [Procardia XL] 30 mg tablet extended release 24hr 30 mg PO BEDTIME magnesium hydroxide [Milk of Magnesia] 400 mg/5 mL Suspension 30 ml PO DAILY PRN (Reason: Constipation) calcium carbonate 500 mg calcium (1,250 mg) Tablet 1,000 mg PO Q4H PRN (Reason: Dyspepsia) bisacodyl 10 mg Suppository 10 mg MN DAILY PRN (Reason: Constipation) ferrous sulfate [Iron (ferrous sulfate)] 325 mg (65 mg iron) Tablet 325 mg PO DAILY ascorbic acid (vitamin C) [Vitamin C] 500 mg Tablet,Chewable 500 mg PO DAILY omeprazole 20 mg Capsule,Delayed Release(Dr/Ec) 20 mg PO DAILY lisinopril [Zestril] 5 mg tablet 5 mg PO BEDTIME nystatin 100,000 unit/gram powder 1 applic TOPICAL BID Systane (PF) 0.4-0.3 % Dropperette 1 drp OPHTHALMIC (EYE) DAILY PRN (Reason: Dry Eyes) Lactobacillus acidoph-L.bulgar [Floranex] 1 million cell Tablet 1 tab PO TID tamsulosin 0.4 mg Capsule 0.4 mg PO DAILY Qty: 30 0RF polyethylene glycol 3350 [Miralax] 17 gram powder in packet 17 g PO BID 7 Days Qty: 14 0RF sennosides-docusate sodium [Senokot-S] 8.6-50 mg Tablet 1 tab-cap PO Q12H PRN (Reason: Constipation) Qty: 14 0RF oxycodone 10 mg tablet 10 mg PO Q8H PRN (Reason: Pain) 6 Days Qty: 20 0RF Discharge Orders: Discharge ED (Routine); Ordered 05/31/25 Ordered By: Gerard Summers Referrals: Terry Reyes MD [Primary Care Provider, Family Practice] Discharge Diet: Diabetic Discharge Activity: Resume usual activity Patient Instructions: Opioid Safety, Pain Management, Patient Portal & Tammy Instructions Activity Restrictions/Additional Instructions: Thank you for choosing [facility] for your healthcare needs today. It is very important that you follow up as instructed or that you return to the Emergency Department should you have concerns or if your condition changes or worsens in any way. You were seen in the emergency room with concerns about your insulin pump. There is no sign of diabetic ketoacidosis at this time. In the emergency room we do not troubleshoot or manage insulin pumps. Recommend you follow-up with your draw operator regarding this. For now until you do recommend you use a moderate dose sliding scale of short acting insulin prescription instructions regarding the scale was given to you in the time of discharge. Print Language: Estonian Coding Level of Care Code ED Computer Installer for Katya Pickard
[2025-05-31 16:34] LABS: Hematocrit 40.7 % (37-53); Hemoglobin 13.60 g/dL (11.27-16.99); Mean Corpuscular HGB Conc 33.4 g/dL (30-55); Mean Corpuscular Hemoglobin 29.7 pg (27-33); Mean Corpuscular Volume 88.9 fl (82-101); Nucleated Red Blood Cells % 0 %; Platelet Count 186 10^3/cmm (157-399); Red Blood Count 4.58 10^6/uL (3.85-5.65); White Blood Count 6.03 10^3/uL (3.29-11.43)
[2025-05-31 16:46] VITALS: BP 156/87; PULSE 83; O2SAT 95
[2025-05-31 16:48] LABS: Ketone (Acetest) Serum Negative (Negative)
[2025-05-31 16:56] LABS: Alanine Aminotransferase 26 U/L (0-41); Albumin Level 4.1 g/dL (3.5-5.2); Alkaline Phosphatase 73 U/L (40-130); Anion Gap 21.3 (5-19); Aspartate Amino Transferase 18 U/L (0-40); Blood Urea Nitrogen 24 mg/dL (8-23); Calcium 9.6 mg/dL (8.5-10.5); Carbon Dioxide 18 mmol/L (22-29); Chloride 99 mmol/L (98-107); Creatinine Clr Calc Pharmacy 54.2757; Globulin 3.3 g/dL (1.3-4.6); Glucose 351 mg/dL (65-115); Osmolality Calculated 294 mOsm/kg (285-295); Potassium 5.3 mmol/L (3.5-5.1); Sodium 133 mmol/L (136-145); Total Protein 7.4 g/dL (6.6-8.7)
[2025-05-31 17:00] VITALS: BP 159/92; PULSE 80; O2SAT 98
[2025-05-31] MEDS: insulin regular-human 100 units/1 mL 10 UNIT IVP (17:26)
[2025-05-31 18:03] VITALS: BP 171/87; PULSE 70; O2SAT 98
== END 2025-05-31 18:08 | disposition home or self-care (01) ==
PROVIDERS: Emergency Provider Family Medicine; PCP Family Medicine
DX: E11.65 Type 2 diabetes mellitus with hyperglycemia (principal); E87.5 Hyperkalemia; Z79.4 Long term (current) use of insulin; I10 Essential (primary) hypertension
CPT/HCPCS: 36415; 36416; 80053; 82009; 82962; 85025; 96361; 96374; 99284; J1815; J7030

== ENCOUNTER → 2025-06-21 09:33 | Outpatient (BNVA) | payer MEDICARE, MEDICAID, SELFPAY | PROVIDERS: PCP Family Medicine; Visit Provider Internal Medicine | DX: E11.9 Type 2 diabetes mellitus without complications (principal); G62.9 Polyneuropathy, unspecified; E78.2 Mixed hyperlipidemia | CPT/HCPCS: 99214 ==

== ENCOUNTER 2025-06-22 12:43 | Emergency (ER) | payer MEDICARE, MEDICAID, SELFPAY ==
--- OUTSIDE RECORDS SUMMARY | 2024-12-30 12:00 | XMS_ITS ---
Author Organization [facility] Address [address] [facility] [place] [address] Care Team Providers Care Chief Analytics Officer Name Role Phone Terry Reyes Primary Care Provider Edgar Alcazar Unavailable [phone] REASON FOR VISIT Pt cx will call back to rs-- 6 mo w/ fr/pvr Encounters Encounter Location Date Provider Diagnosis [facility] [address] [facility] [place] [address] 12/30/2024 Edgar Schaffer Plan Of Treatment No Information Progress Notes * Aníbal AMARO KDOB: 7 (70 yo M)Acc No.[id number]:12/30/2024 Progress Notes Patient: Jen MORRISSEYel Olivier Provider: Deon Schaffer APRN :1955 A ge:69 Y S ex:Male Date:12/30/2024 Address: [address], [place], [facility] Pcp:Terry Reyes Subjective: * Chief Complaints: * 1 . Pt cx will call back to rs-- 6 mo w/ fr/pvr. * Medical History: Objective: * Vitals: Assessment: Plan: * Treatment: * Billing Information: * Visit Code: * Procedure Codes: * Electronic signature of León Schaffer APRN on 06/22/2025 at 12:54 PM CDT Sign off status: Pending * Provider: Deon Schaffer APRN Date: 0 12/30/2024 Generated for Diamondi ng/Fakettyg/eTransmitting on: 0 06/22/2025 12:54 PM CDT
[2025-06-22 12:46] VITALS: BP 155/84; PULSE 101; RESP 16; TEMP 37.2; O2SAT 94; BMI 28.8
--- OUTSIDE RECORDS SUMMARY | 2025-06-22 12:55 | XMS_ITS | Patient Health Record ---
Author Organization [facility] [place] Address [address] [place] [address] Care Team Providers Care Med Surg Rn Name Role Phone Terry Reyes Primary Care Provider Edgar Alcazar Unavailable [phone] Allergies Allergen (clinical drug ingredient) Drug/Non Drug Allergy documented on EMR Reaction Allergy Type Onset Date Status sulfamethoxazole / trimethoprim Bactrim Unknown Drug Allergy Active Results Component Value Reference Range Notes Urinalysis, Routine Reviewed date:07/01/2024 04:44:41 PM Interpretation: Performing Lab: Notes/Report: Urine-Color yellow Appearance clear Glucose 3+ Bilirubin - Ketones - Specific [place] 1.015 Occult Blood - pH 6.0 Urine [...] Status Risk Notes Problem Benign prostatic hyperplasia (836259512) BPH (benign prostatic hyperplasia) (N40.0) Active confirmed Problem Change of urinary catheter bag (procedure) (217172701) Catheter (urine) change required (Z46.6) Active confirmed Vital Signs Heart Rate 88 /min 07/01/2024 Height-cm 157.48 cm 07/01/2024 Blood pressure diastolic 78 mm Hg 07/01/2024 Weight-kg 88 kg 07/01/2024 Height 62 in 07/01/2024 Blood pressure systolic 133 mm Hg 07/01/2024 Weight 194 lbs 07/01/2024 BMI 35.48 kg/m2 07/01/2024 Procedures Procedure Date Ordered Date Performed Result Body Sit e Bladder Scan 07/01/2024 07/01/2024 [id number] Encounters Encounter Location Date Provider Diagnosis [facility] [address] [place] [address] 07/01/2024 Edgar Schaffer BPH (benign prostati c hyperplasia) N40.0 ; Urinary retention with incomplete bladder emptying R33.9 and Prostate cancer screening Z12.5 Assessments Encounter Date Diagnosis (ICD Code) Assessment Notes Treatment Notes Treatment Clinical Notes Section Notes 07/01/2024 BPH (benign prostatic hyperplasia) (ICD-10 - [...] Insured Coverage Start Date Coverage End Date [facility] [place] [address] [place], [place] [id number] Aníbal Rachel Self - patient is the insured Medical (General) History Medical History History ICD Code ckd urinary rention hyperkalemia HTN type 2 DM Surgical History Surgery Date(Month/Year) toe amp s/p debridement Hospitalization History Reason Date(Month/Year) see surgeries
[2025-06-22 13:09] LABS: Hematocrit 44.3 % (37-53); Hemoglobin 15.10 g/dL (11.27-16.99); Mean Corpuscular HGB Conc 34.1 g/dL (30-55); Mean Corpuscular Hemoglobin 29.3 pg (27-33); Mean Corpuscular Volume 85.9 fl (82-101); Nucleated Red Blood Cells % 0 %; Platelet Count 200 10^3/cmm (157-399); Red Blood Count 5.16 10^6/uL (3.85-5.65); White Blood Count 8.39 10^3/uL (3.29-11.43)
[2025-06-22 13:12] LABS: ABG PCO2 34.0 mmHg (35-45); ABG PH Result 7.45 (7.35-7.45); Alveolar-Arterial Oxygen Gradi 4.8 mmHg (5-10); Arterial Blood Gas Hematocrit 46.6 % (42-52); Blood Gas Allen Test Pos; Blood Gas Operator Identificat WALCI; Blood Gas Sample Site Radial, right; Blood Gas Sample Type Arterial; Carboxyhemoglobin 1.1 %THgb (0.4-20.1); Glucose Level-ABG 436.0 mg/dL (70-115); HCO3 ABG 23.5 mmol/L (22-26); Ionized Calcium Level - ABG 1.3 mmol/L (1.1-1.4); Methemoglobin 0.9 % (0.4-1.5); Oxygen Saturation ABG 95.8; PO2 ABG 71.1 mmHg (80.0-100.0); PO2 FiO2 Ratio Arterial Blood 338; Potassium Level - ABG 5.0 mmol/L (3.5-5.0); Sodium Level - ABG 133.0 mmol/L (131-143)
[2025-06-22 13:18] LABS: Alanine Aminotransferase 23 U/L (0-41); Albumin Level 4.4 g/dL (3.5-5.2); Alkaline Phosphatase 88 U/L (40-130); Anion Gap 20.2 (5-19); Aspartate Amino Transferase 21 U/L (0-40); Blood Urea Nitrogen 28 mg/dL (8-23); Calcium 10.7 mg/dL (8.5-10.5); Carbon Dioxide 20 mmol/L (22-29); Chloride 99 mmol/L (98-107); Creatinine Clr Calc Pharmacy 45.7649; Globulin 3.9 g/dL (1.3-4.6); Glucose 490 mg/dL (65-115); Osmolality Calculated 305 mOsm/kg (285-295); Potassium 5.2 mmol/L (3.5-5.1); Sodium 134 mmol/L (136-145); Total Protein 8.3 g/dL (6.6-8.7)
[2025-06-22 13:30] LABS: Ketone (Acetest) Serum Negative (Negative)
--- NOTE | 2025-06-22 13:41 | PC.PHAR ---
Pt is resident at [facility] current med list 06/22/25 1:40pm
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
--- NOTE | 2025-06-22 14:27 | PC.PHAR ---
Nurse Mustafa states pt is transitioning from pump to flex pen injectable insulin.
[2025-06-22] MEDS: insulin regular-human 100 units/1 mL 10 UNIT IVP (15:08)
[2025-06-22 15:25] VITALS: BP 148/106; PULSE 89; RESP 16; O2SAT 96
[2025-06-22 15:31] VITALS: BP 149/96; PULSE 91; RESP 16; O2SAT 95
== END 2025-06-22 15:39 | disposition home or self-care (01) ==
PROVIDERS: Emergency Provider Family Medicine; PCP Family Medicine
DX: E11.65 Type 2 diabetes mellitus with hyperglycemia (principal); Z79.4 Long term (current) use of insulin; I10 Essential (primary) hypertension
CPT/HCPCS: 36416; 36600; 80051; 80053; 82009; 82330; 82805; 82962; 85025; 96361; 96374; 99285; J1815; J7030

== ENCOUNTER → 2025-07-12 09:37 | Outpatient (BNVA) | payer MEDICARE, MEDICAID, SELFPAY | PROVIDERS: PCP Family Medicine; Visit Provider Internal Medicine | DX: E11.9 Type 2 diabetes mellitus without complications (principal); G62.9 Polyneuropathy, unspecified; E78.2 Mixed hyperlipidemia | CPT/HCPCS: 99214 ==

== ENCOUNTER → 2025-08-23 10:07 | Outpatient (BNVA) | payer MEDICARE, MEDICAID, SELFPAY | PROVIDERS: PCP Family Medicine; Visit Provider Internal Medicine | DX: E11.9 Type 2 diabetes mellitus without complications (principal); E78.2 Mixed hyperlipidemia; G62.9 Polyneuropathy, unspecified | CPT/HCPCS: 99214 ==

== ENCOUNTER → 2025-10-18 15:24 | Outpatient (BNVA) | payer MEDICARE, MEDICAID, SELFPAY | PROVIDERS: PCP Family Medicine; Visit Provider Podiatrist Foot & Ankle Surgery | DX: E11.621 Type 2 diabetes mellitus with foot ulcer (principal); L97.512 Non-pressure chronic ulcer of other part of right foot with fat layer exposed; L02.611 Cutaneous abscess of right foot; L03.90 Cellulitis, unspecified; L03.115 Cellulitis of right lower limb; G62.9 Polyneuropathy, unspecified; E11.42 Type 2 diabetes mellitus with diabetic polyneuropathy; L84 Corns and callosities; Z89.411 Acquired absence of right great toe; Z79.4 Long term (current) use of insulin | CPT/HCPCS: 11043; 73630; 99214 ==

== ENCOUNTER → 2025-10-26 07:58 | Outpatient (BNVA) | payer OTHER, MEDICAID, SELFPAY | PROVIDERS: PCP Family Medicine; Visit Provider Podiatrist Foot & Ankle Surgery | DX: E11.621 Type 2 diabetes mellitus with foot ulcer (principal); L97.512 Non-pressure chronic ulcer of other part of right foot with fat layer exposed; G62.9 Polyneuropathy, unspecified; E11.42 Type 2 diabetes mellitus with diabetic polyneuropathy; L84 Corns and callosities; Z89.411 Acquired absence of right great toe; L03.90 Cellulitis, unspecified; Z79.4 Long term (current) use of insulin | CPT/HCPCS: 11042; 99214 ==

== ENCOUNTER → 2025-11-09 08:34 | Outpatient (BNVA) | payer OTHER, MEDICAID, SELFPAY | PROVIDERS: PCP Family Medicine; Visit Provider Podiatrist Foot & Ankle Surgery | DX: E11.42 Type 2 diabetes mellitus with diabetic polyneuropathy (principal); G62.9 Polyneuropathy, unspecified; L84 Corns and callosities; Z89.411 Acquired absence of right great toe; L97.512 Non-pressure chronic ulcer of other part of right foot with fat layer exposed; E11.621 Type 2 diabetes mellitus with foot ulcer; L03.115 Cellulitis of right lower limb; Z79.4 Long term (current) use of insulin | CPT/HCPCS: 99214 ==